=== PATIENT | male | born 1945 | race Caucasian/White ===

== ENCOUNTER 2024-11-04 13:02 | Outpatient (REF) | payer MEDICARE, SELFPAY ==
[2024-11-04 18:08] LABS: Appearance Urine Turbid; Color Urine Yellow; Glucose Urine UA Negative (Negative); Leukocyte Esterase Urine Negative (Negative); Nitrite Urine Negative (Negative); PH 5.5 (5.0-9.0); Specific Gravity - Urine 1.025 (1.005-1.025); Urine Blood Negative (Negative); Urine Ketones Trace mg/dL (Negative); Urine Protein Trace mg/dL (Neg-Trace)
[2024-11-04 18:19] LABS: Anion Gap 12 (12-20); Blood Urea Nitrogen 23 mg/dL (9-16); Carbon Dioxide 22 mmol/L (22-29); Chloride 109 mmol/L (96-108); Estimated Glomerular Filt Rate 55; Phosphorus 3.1 mg/dL (2.7-4.5); Potassium 4.3 mmol/L (3.3-5.1); Sodium 139 mmol/L (135-145)
[2024-11-04 19:01] LABS: Creatinine Urine 267.04 mg/dL; Protein/Creatinine Ratio, Ur 0.07 (<0.2); Total Protein Urine Random 18 mg/dL (<12)
[2024-11-04 19:09] LABS: Parathyroid Hormone Intact 102.2 pg/mL (8.7-77.1)
[2024-11-09 12:13] LABS: IgA 151 mg/dL (70-320); IgG 743 mg/dL (600-1540); IgM 126 mg/dL (50-300)
== END 2024-11-04 13:03 | disposition home or self-care (01) ==
LOC: HO.HKASLDS 13:02
PROVIDERS: PCP Internal Medicine; Referring Provider Internal Medicine; Visit Provider Internal Medicine Nephrology
DX: N18.31 Chronic kidney disease, stage 3a (principal); I10 Essential (primary) hypertension
CPT/HCPCS: 36415; 80051; 81003; 82310; 82565; 82570; 82784; 83970; 84100; 84156; 84520; 86334; 99202

== ENCOUNTER 2024-11-04 13:02 | Outpatient (AMB) | payer MEDICARE, SELFPAY ==
--- NOTE | 2024-11-04 13:29 | HO.NEPHOV_ITS ---
Vital Signs 11/04/24 13:35 Height 6 ft Weight 179 lb BMI 24.3 BP 120/70 Blood Pressure Location Lt brachial Position Sitting Pulse 58 Pulse Source Pulse Oximeter Pulse Oximetry (%) 99 Oxygen Delivery Method Room Air Intake Visit Reasons: ENP: HTN/ Conf Ok per Dr Funez Application Security Engineer Required: No Accompanied by: Spouse Allergies No Known Allergies Allergy (Verified 11/04/24 13:35) HPI Comments Details: I had the pleasure of seeing Pankaj in consultation for CKD & hypertension. He has been having hypertension for a long time but continues to be labile inspite of medication and its compliance. He also has CKD as well as renal calculus. He denies any CAD,CVA, CHF, PAD or known MIKE. He denies any H/O hypokalemia, uncontrolled thyroid disorders, JOSE ALFREDO, palpitations. He is a smoker. He has H/O prostate cancer. He monitors his BP at home and remains labile. He had ECHO done in the past which has been Okay as per the patient and PCP note. He has H/O orthostatic hypotension. He is on Bystolic and losartan. He denies chest pain, SOB, PND, orthopnea, edema, palpitations or syncope. He was accompanied by his during this visit [facility] Medical History (Updated 11/15/24 @ 19:55 by Flaco Funez MD) Left cervical radiculopathy Chronic depression Anxiety BPH (benign prostatic hyperplasia) Prostate cancer Hyperlipidemia Hypertension Elevated serum creatinine Bilateral carpal tunnel syndrome Dyspnea Orthostatic hypotension Adenomatous polyp of colon Surgical History (Updated 11/04/24 @ 13:32 by Judit Lopez MA) History of cataract surgery H/O carpal tunnel repair S/P total knee arthroplasty H/O hernia repair H/O lithotripsy H/O cystoscopy Hx of cholecystectomy S/P partial colectomy History of bowel resection History of knee replacement Family History Mother Heart disease Cancer Father Cancer Hypertension Paternal Grandfather Cancer Social History (Updated 11/04/24 @ 13:30 by Judit Lopez MA) Alcohol intake: former Patient Tobacco Use Status: Current everyday Tobacco user Tobacco use type: Cigar Review of Systems Const All systems reviewed & are unremarkable except as noted in HPI and below Physical Exam Vital Signs: Last Vital Signs Pulse 58 11/04/24 13:35 BP 120/70 11/04/24 13:35 Pulse Ox 99 11/04/24 13:35 Oxygen Delivery Method Room Air 11/04/24 13:35 BMI result Body Mass Index 24.3 Const General: comfortable and no acute distress Orientation/consciousness: patient oriented x3 HEENT Head: Yes normocephalic Mouth: Normal oral and palatal mucosa present Eyes EOM: EOMs intact bilaterally Neck Neck: Yes supple Resp Auscultation: clear to auscultation bilaterally Cardio Jugular venous distension: no JVD Rate: regular rate GI Palpation (GI): Soft to palpation Auscultation: normal bowel sounds General: Yes no CVA tenderness Back/Spine/Pelvis Back: no CVA tenderness Skin General skin exam: no rashes or lesions noted Neuro General: patient oriented x3 and moves all extremities Extrem General: Yes no pedal edema Results Reviewed Nephrology Results: Sodium 139 mmol/L (135-145) 11/04/24 Potassium 4.3 mmol/L (3.3-5.1) 11/04/24 Chloride 109 mmol/L (96-108) H 11/04/24 Carbon Dioxide 22 mmol/L (22-29) 11/04/24 BUN 23 mg/dL (9-16) H 11/04/24 Creatinine 1.27 mg/dL (0.5-1.4) 11/04/24 Calcium 9.0 mg/dL (8.4-10.2) 11/04/24 Phosphorus 3.1 mg/dL (2.7-4.5) 11/04/24 PTH Intact 102.2 pg/mL (8.7-77.1) H 11/04/24 Urine Protein Trace mg/dL (Neg-Trace) 11/04/24 Urine Creatinine 267.04 mg/dL 11/04/24 Protein/Creatinin Ratio 0.07 (<0.2) 11/04/24 Renal US 11/12/24 Assessment & Plan Assessment & Plan (1) Hypertension: Code(s): I10 - Essential (primary) hypertension Category: Medical Qualifiers: Hypertension type: primary hypertension Qualified Code(s): I10 - Essential (primary) hypertension (2) CKD stage 3a, GFR 45-59 ml/min: Code(s): N18.31 - Chronic kidney disease, stage 3a Category: Medical (3) Hypertension: Code(s): I10 - Essential (primary) hypertension Category: Medical Qualifiers: Hypertension type: primary hypertension Qualified Code(s): I10 - Essential (primary) hypertension (4) CKD stage 3a, GFR 45-59 ml/min: Code(s): N18.31 - Chronic kidney disease, stage 3a Category: Medical Plan Pankaj is known to have CKD 3 with hypertension. His BP remains labile . He is on losartan and bystolic. He has H/O orthostatic drop in BP. I have ordered 24 hour BPM, renal imaging including Doppler of renal arteries as well as blood work for F/U of CKD. He maintains good hydration and avoids NSAID's. His UO is good and does not have any edema. I did not make any medication changes today but discussed about the above mentioned issues. Further management is pending e volving data. Answered all questions. Orders: Orders UA and rflx microscopic 11/04/24 I10 - Essential (primary) hypertension, N18.31 - Chronic kidney disease, stage 3a Protein Creatinine Ratio, Ur 11/04/24 I10 - Essential (primary) hypertension, N18.31 - Chronic kidney disease, stage 3a Creatinine 11/04/24 I10 - Essential (primary) hypertension, N18.31 - Chronic kidney disease, stage 3a Electrolytes 11/04/24 I10 - Essential (primary) hypertension, N18.31 - Chronic kidney disease, stage 3a Phosphorus 11/04/24 I10 - Essential (primary) hypertension, N18.31 - Chronic kidney disease, stage 3a Parathyroid Hormone Intact 11/04/24 I10 - Essential (primary) hypertension, N18.31 - Chronic kidney disease, stage 3a Immunofixation Pnl, Serum 11/04/24 I10 - Essential (primary) hypertension, N18.31 - Chronic kidney disease, stage 3a Blood Urea Nitrogen 11/04/24 I10 - Essential (primary) hypertension, N18.31 - Chronic kidney disease, stage 3a Calcium 11/04/24 I10 - Essential (primary) hypertension, N18.31 - Chronic kidney disease, stage 3a US renal BI 1 Week I10 - Essential (primary) hypertension, N18.31 - Chronic kidney disease, stage 3a US renal doppler 1 Week I10 - Essential (primary) hypertension, N18.31 - Chron ic kidney disease, stage 3a AMB 24 HR B/P Monitor PLACEMENT 11/04/24 I10 - Essential (primary) hypertension, N18.31 - Chronic kidney disease, stage 3a Coding Level of Care Code New Pt Level 4 (89894) Diagnoses Primary hypertension I10 Hypertension type: primary hypertension CKD stage 3a, GFR 45-59 ml/min N18.31
[2024-11-04 13:35] VITALS: BP 120/70; PULSE 58; O2SAT 99; BMI 24.3
== END 2024-11-04 14:20 | disposition home or self-care (01) ==
LOC: HO.HKAS 13:03
PROVIDERS: PCP Internal Medicine; Referring Provider Internal Medicine; Visit Provider Internal Medicine Nephrology
DX: I10 Essential (primary) hypertension (principal); N18.31 Chronic kidney disease, stage 3a
CPT/HCPCS: 99204

== ENCOUNTER 2024-11-12 12:31 | Outpatient (REF) | payer MEDICARE, SELFPAY ==
--- NOTE | ~2024-11-12 | US_ITS ---
EXAMINATION: US RETROPERITONEAL LIMITED (RENAL ONLY) CLINICAL INFORMATION: Essential hypertension. COMPARISON: None available. TECHNIQUE: Ultrasound along with color Doppler imaging and spectral analysis was performed of the kidneys. FINDINGS: RIGHT KIDNEY: 9.8 x 4.5 x 5.1 cm (SAG x AP x TRV). The kidney is normal in size, contour, and echogenicity. Renal cortical thickness is normal. No calculi or focal parenchymal lesions. No hydronephrosis. LEFT KIDNEY: 11.1 x 4.8 x 3.9 cm (SAG x AP x TRV). The kidney is normal in size, contour, and echogenicity. Renal cortical thickness is normal. No focal parenchymal lesions. No hydronephrosis. Nonobstructing lower pole calculus measuring 4 x 3 x 4 mm. Spectral Doppler analysis: Right Kidney: -Peak systolic velocity in the proximal right renal artery = 168 cm/s. Normal waveforms. -Peak systolic velocity in the mid right renal artery = 179 cm/s. Normal waveforms. -Peak systolic velocity in the distal right renal artery = 80 cm/s. Normal waveforms. -Patent right renal vein. -Upper pole interlobar artery resistive index of 0.78. -Midpole interlobar artery resistive index of 0.79. -Lower pole interlobar artery resistive index of 0.79. RAR right = 1.8 Left Kidney: -Peak systolic velocity in the proximal left renal artery = 185 cm/s. Normal waveforms. -Peak systolic velocity in the mid left renal artery = 133 cm/s. Normal waveforms. -Peak systolic velocity in the distal left renal artery = 82 cm/s. Normal waveforms. -Patent left renal vein. -Upper pole interlobar artery resistive index of 0.73. -Mid pole interlobar artery resistive index of 0.78. -lower pole interlobar artery resistive index of 0.78. RAR left = 1.9 Aorta: -Peak systolic velocity = 99 cm/s. US/US renal doppler IMPRESSION: 1. No evidence of renal artery stenosis or abnormal waveforms bilaterally on color/spectral Doppler examination (based on peak systolic velocities and resistive indices). 2. Renal parenchyma is normal. No hydronephrosis. 3. There is a left renal lower pole nonobstructing calculus measuring 4 mm. Electronically signed by: Shane Ruiz MD 11/12/2024 02:22 PM EDT RP
--- OUTSIDE RECORDS SUMMARY | 2024-11-12 14:24 | XMS_ITS | Encounter Summary ---
Author Organization [facility], Address [address] [place] [phone] Phone Care Team Providers Care Category Manager Name Role Phone Isma Lewis MD Primary Care Provider [phone] Encounter Details Date Type Department Care Team (Late st Contact Info) Description 07/22/2022 Documentation Only [facility] [address] [place] [place] [address] Isma Lewis MD [address] [place] [phone] Social History Tobacco Use Types Packs/Day Years Used Date Smoking Tobacco: Never Assessed Sex and Gender Information Value Date Recorded Sex Assigned at Male 08/29/2023 3:50 PM EST Legal Sex Male 11:12 AM EST Gender Identity Male 08/29/2023 3:50 PM EST Sexual Orientation Not on file documented as of this encounter Plan of Treatment Upcoming Encounters Date Type Department Care Team (Late st Contact Info) Description 02/07/2025 4:00 PM EDT Office Visit [facility], [address] [place] [address] Sammy Hall MD [address] [place] [address] [place] [phone] documented as of this encounter Visit Diagnoses Not on filedocumented in this encounter Care Teams Category Manager Relationship Specialty Start Date End Date Isma Lewis MD [address] [place] [address] PCP - General Internal Medicine 07/22/22 documented as of this encounter
--- OUTSIDE RECORDS SUMMARY | 2024-11-12 14:24 | XMS_ITS | Encounter Summary ---
Author Organization [facility] Address [address] [place] [address] Care Team Providers Care Litigation Claim Representative Name Role Phone Isma Lewis MD Primary Care Provider [phone] Reason for Visit * Reason Onset Date Comments Hypertension 09/20/2024 Encounter Details Date Type Department Care Team (Late st Contact Info) Description 09/20/2024 Telephone Internal Medicine - [facility] [address] [place] [phone] Isma Lewis MD [address] [place] [address] Hypertension Social History Tobacco Use Types Packs/Day Years Used Date Smoking Tobacco: Every Day Cigars Comments:Smoking 1 cigar jacob ly Alcohol Use Standard Drinks/Week Comments Not Currently 0 (1 standard drink = 0.6 oz pur e alcohol) Sex and Gender Information Value Date Recorded Sex Assigned at Not on file Legal Sex Male 3:56 AM EST Gender Identity Not on file Sexual Orientation Not on file documented as of this encounter Progress Notes * Nayana Márquez RN - 09/20/2024 12:[address] Lewis-pt reports he stopped taking Labetalol because it caused SOB so bad that he was gasping for breath. I scheduled an appt with you for tomorrow FYI Call to pt # [phone], spoke to pt Informed pt that Dr. Lewis advised pt to notify his vat operator of elevated BP and to restart labetalol. pt reports he stopped taking Labetalol because it caused SOB quickly like just taking a shower, gasping for breath. I scheduled an appt with provider for tomorrow * Isma Lewis MD - 09/20/2024 11:43 AM EST I think he should check with his vat operator. And may go back to his old medicine * Nayana Márquez RN - 09/20/2024 11:[address] Lewis-pt reporting elevated BP since starting nebivolol. BP prior to starting this medication 116/60-122/62. Now he is having BP 157/86-165/80. Please advise * Marcella Pisano - 09/20/2024 9:54 AM EST States running high blood pressure Ever since a new medication was introduced Nebivolol 2.5mg This am reported 157/86 Yesterday was 165/unsure documented in this encounter Plan of Treatment Upcoming Encounters Date Type Department Care Team (Late st Contact Info) Description 12/08/2024 9:10 AM EDT Office Visit [facility] [address] [facility] [address] [place] [address] Po Bernal NP [address] [place] [address] 01/13/2025 9:40 AM EDT Office Visit Gastroenterology - [address] [place] [address] Mary Bermudez PA [address] [place] [address] 02/21/2025 8:45 AM EDT Office Visit Internal Medicine - [facility] [address] [phone] Isma Lewis MD [address] [address] 05/13/2025 10:00 AM EDT Office Visit Hematology Oncology [address] [place] [phone] Jhoan Lawrence MD [address] [place] [phone] 09/08/2025 10:30 AM EST Office Visit Pulmonolgy - [facility] [address] [phone] Virgil Palomo MD [address] [address] documented as of this encounter Visit Diagnoses Not on filedocumented in this encounter Additional Health Concerns Assessment Noted Time PHQ-9 Depression Total Score: 0 08/23/19 9:55 AM EST A fall risk assessment has been complete d for the patient 08/23/2024 9:52 AM EST documented as of this encounter Care Teams Litigation Claim Representative Relationship Specialty Start Date End Date Isma Lewis MD [address] [address] PCP - General Internal Medicine 09/28/18 documented as of this encounter
--- OUTSIDE RECORDS SUMMARY | 2024-11-12 14:24 | XMS_ITS | Clinical Summary ---
Author Organization [facility] Address [address] [place] [address] Care Team Providers Care Senior Quality Engineer Name Role Phone Isma Lewis MD Primary Care Provider Unavailab le Allergies No known active allergies Medications Medication Sig Dispensed Refills Start Date End Date Status omeprazole (PriLOSEC) 20 MG capsule Take 1 capsule (20 mg total) by mouth daily. 0 Active sertraline (ZOLOFT) 100 MG tablet Take 1 tablet (100 mg total) by mouth daily. 0 Active busPIRone (BUSPAR) 15 MG tablet Take 1 tablet (15 mg total) by mouth 2 (two) times a day. 0 Active losartan (COZAAR) 100 MG tablet Take 1 tablet (100 mg total) by mouth daily. 0 Active labetalol (NORMODYNE) 100 MG tablet Take 1 tablet (100 mg total) by mouth daily. 0 Active atorvastatin (LIPITOR) tablet 20 mg Take 1 tablet (20 mg total) by mouth daily. 4 times weekly 0 Active Active Problems Problem Noted Date Diagnosed Date Other specified anemias 10/17/2023 Social History Tobacco Use Types Packs/Day Years Used Date Smoking Tobacco: Never Assessed Sex and Gender Information Value Date Recorded Sex Assigned at Not on file Gender Identity Not on file Sexual Orientation Not on file Job Start Date Occupation Industry Not on file Not on file Not on file Last Filed Vital Signs Vital Sign Reading Time Taken Comments Blood Pressure 148/61 05/14/2024 10:07 AM EDT Pulse 67 05/14/2024 10:07 AM EDT Temperature 36.2 ??C (97.2 ??F) 05/14/2024 10:07 AM E DT Respiratory Rate - - Oxygen Saturation 100% 05/14/2024 10:07 AM EDT Inhaled Oxygen Concentration - - Weight 82.1 kg (181 lb) 05/14/2024 10:07 AM EDT Height 182.9 cm (6') 05/14/2024 10:07 AM EDT Body Mass Index 24.55 05/14/2024 10:07 AM EDT Plan of Treatment Health Maintenance Due Date Last Done Comments Hepatitis C Screening 1945 COVID-19 Vaccine (#1) 03/26/1946 Depression Screening 1958 Preventative Health Evaluation 1964 DTap / Tdap / Td (1 - Tdap) 1965 Shingrix-Zoster Vaccine (1 o f 2) 1996 Fall Risk Assessment 2011 RSV Adult > 60+ Yrs or (1 - 1-dose 75+ series) 2021 Influenza Vaccine (#1) 2024 04/25/2020 Pneumococcal Vaccine Completed 04/07/2018, 03/27/2017 Hepatitis B Vaccines Aged Out No long er eligible based on patient's age to complete this topic RSV Ped < 20 months Aged Out No longe r eligible based on patient's age to complete this topic Care Teams Senior Quality Engineer Relationship Specialty Start Date End Date Isma Lewis MD PCP - General Internal Medicine 09/25/23
--- OUTSIDE RECORDS SUMMARY | 2024-11-12 14:24 | XMS_ITS | Clinical Summary ---
Author Organization [facility] [address] [place] [address] Phone Care Team Providers Care Solar Sales Associate Name Role Phone Isma Lewis MD Primary Care Provider [phone] Medications losartan (COZAAR) 50 MG tablet Take 50 mg by mouth in the morning and 50 mg in the evening. Active nebivolol (BYSTOLIC) 10 MG tablet Take 10 mg by mouth 1 (one) time each day Active Encounters Date Type Department Care Team Description 10/18/2024 10:45 AM EDT Office Visit [facility] [address] [place] [address] Sammy Hall MD Stage 3a chronic kidney disease (HCC) (Primary Dx); Hypertension; Nephrolithiasis; Primary malignant neoplasm of prostate (HCC) 08/26/2024 Telephone [facility] [address] [place] [address] Randi Connelly MA from Last 3 Months Social History Tobacco Use Types Packs/Day Years Used Date Smoking Tobacco: Never Assessed Sex and Gender Information Value Date Recorded Sex Assigned at Male 08/29/2023 3:50 PM EST Legal Sex Male 11:12 AM EST Gender Identity Male 08/29/2023 3:50 PM EST Sexual Orientation Not on file Last Filed Vital Signs Vital Sign Reading Time Taken Comments Blood Pressure 118/60 08/20/2023 2:37 PM EST Pulse - - Temperature - - Respiratory Rate - - Oxygen Saturation - - Inhaled Oxygen Concentration - - Weight - - Height - - Body Mass Index - - Plan of Treatment Upcoming Encounters Date Type Department Care Team (Late st Contact Info) Description 02/07/2025 4:00 PM EDT Office Visit [facility], [address] [place] [phone] Sammy Hall MD [address] [facility] [place] [phone] Health Maintenance Due Date Last Done Comments Influenza Vaccine (Season Ended) 2025 04/25/2020 Pneumococcal Vaccine: 65+ Years Completed 04/07/2018, 03/27/2017 Hepatitis B Vaccine Aged Out No longe r eligible based on patient's age to complete this topic Insurance [id number] Care Teams Solar Sales Associate Relationship Specialty Start Date End Date Isma Lewis MD [address] [facility] [address] [place], [place] [phone] PCP - General Internal Medicine 07/22/22
--- OUTSIDE RECORDS SUMMARY | 2024-11-12 14:24 | XMS_ITS | Encounter Summary ---
Author Organization [facility], Address [address] [place] [phone] Phone Care Team Providers Care Furnace Filler Name Role Phone Isma Lewis MD Primary Care Provider [phone] Encounter Details Date Type Department Care Team (Late st Contact Info) Description 08/08/2022 Documentation Only [facility] [address] [place] [address] Isma Lewis MD [address] [place] [phone] Social History Tobacco Use Types Packs/Day Years [...] Visit [facility], [address] [place] [address] Sammy Hall MD [address] [place] [address] [place] [phone] documented as of this encounter Visit Diagnoses Not on filedocumented in this encounter Care Teams Furnace Filler Relationship Specialty Start Date End Date Isma Lewis MD [address] [place] [address] PCP - General Internal Medicine 07/22/22 documented as of this encounter
--- OUTSIDE RECORDS SUMMARY | 2024-11-12 14:24 | XMS_ITS | Encounter Summary ---
Author Organization [facility], Address [address] [place] [phone] Phone Care Team Providers Care Electrician [employer] Name Role Phone Isma Lewis MD Primary Care Provider [phone] Encounter Details Date Type Department Care Team (Late st Contact Info) Description 08/08/2022 Documentation Only [facility] [address] [place] [address] Isma Lewis MD [address] [place] [phone] Social History Tobacco Use Types Packs/Day Years [...] Visit [facility], [address] [facility] [place] [address] Sammy Hall MD [address] [place] [address] [place] [phone] documented as of this encounter Visit Diagnoses Not on filedocumented in this encounter Care Teams Electrician [employer] Relationship Specialty Start Date End Date Isma Lewis MD [address] [place] [address] PCP - General Internal Medicine 07/22/22 documented as of this encounter
--- OUTSIDE RECORDS SUMMARY | 2024-11-12 14:24 | XMS_ITS | Clinical Summary ---
Author Organization 175 [facility] Address [address] [place] [address] Phone Care Team Providers [employer]ge [employer] Supervisor Name Role Phone Isma Lewis MD Primary Care Provider [phone] Allergies No known active allergies Medications losartan (COZAAR) 100 mg tablet Take 1 tablet (100 mg total) by mouth 1 (one) time each day. 3 Active OMEPRAZOLE ORAL Take 1 tablet by mouth 1 (one) time each day. Active vit B6-mag cit,oxid-potas s cit (Theralith XR) 3.75-45-45-49. 5 mg tablet extended release Take 4 tablets by mouth. Active nebivoloL (Bystolic) 10 mg tablet Take 1 tablet (10 mg total) by mouth 1 (one) time each day. 30 each 11 5 09/21/19 26 Active omeprazole OTC (PriLOSEC OTC) 20 mg EC tabletIndicati ons:Epigastric burning sensation Take 1 tablet (20 mg total) by mouth 2 (two) times a day. Do not crush, chew, or split. 180 tablet 3 5 10/15/19 26 Active sucralfate (CARAFATE) 1 gram tabletIndicati ons:Epigastric burning sensation Take 1 tablet (1 g total) by mouth 3 (three) times a day. Take 1 hour before meals and at bedtime 270 each 1 5 04/12/20 25 Active busPIRone (BUSPAR) 15 mg tablet TAKE 1 TABLET BY MOUTH TWICE DAILY 180 tablet 1 5 Active atorvastatin (LIPITOR) 20 mg tablet TAKE 1 TABLET BY MOUTH DAILY 90 tablet 1 5 Active sertraline (ZOLOFT) 100 mg tablet TAKE 2 TABLETS BY MOUTH DAILY 180 tablet 1 5 Active atorvastatin (LIPITOR) 20 mg tablet Take 1 tablet (20 mg total) by mouth 1 (one) time each day. 3 10/26/19 25 Discontinued busPIRone (BUSPAR) 15 mg tablet Take 1 tablet (15 mg total) by mouth 2 (two) times a day. 3 10/26/19 25 Discontinued sertraline (ZOLOFT) 100 mg tablet 2 p.o. daily 3 10/26/19 25 Discontinued Active Problems Problem Noted Date Diagnosed Date Adenomatous polyp of colon 10/14/2024 Overview (10/14/2024): Right colectomy 2006 for TVA with HGD Orthostatic hypotension 12/06/2022 Overview (10/15/2023): - Started noticing increased dizziness, particularly with postural changes and bending over over the past 3 years or so as he was initiated on antihypertensive medications - What prompted referral to me was 1 particular episode in either late or early during which time he got extremely lightheaded after a hot shower, got nauseated and vomited - Grossly orthostatic during my visit with him in November 2022 however I lost the piece of paper with the numbers on it so I was not able to record official numbers - Because of constellation of issues including symptoms of orthostasis/dysautonomia, bilateral carpal tunnel syndrome, history of spinal stenosis-I did a work-up for AL amyloidosis - Work-up was positive for kappa light chains on urine immunofixation electrophoresis though free light chain ratio was normal, SIFE was normal, spot Uring Prot/Cr negative for significant proteinuria -Echocardiogram on 01/21/2023 showed normal biventricular size and systolic function, normal left ventricular regional wall motion with an ejection fraction of 60 to 65%, no hemodynamically significant valve disease Last Assessment & Plan: Continue AL amyloid work-up-I have contacted pathology as well as Dr. Baptiste-we are in the process of getting his carpal tunnel tissue stain for [place] red given persistence of symptoms though to a milder degree; continue behavioral modifications including slow postural changes, recognition of symptoms upon which he knows to get to a seated or lying position and rest, core and leg strengthening exercises; I will also informally confer with hematology to get their opinion about his positive UIFE and how relevant this is Dyspnea 12/05/2022 Overview (10/15/2023): - Typically with more than ordinary activities such as intense yard work but sometimes will feel short of breath when he gets lightheaded with postural changes well Last Assessment & Plan: Clinically euvolemic on exam and with a reassuring echocardiogram-possibly related to deconditioning and may be part and parcel of his orthostasis as well; reassurance about echo provided, no further cardiac work-up for the time being Bilateral carpal tunnel syndrome 09/25/2022 Creatinine elevation 01/29/2019 Hypertension 09/24/2018 Overview (10/15/2023): Last Assessment & Plan: Continue monotherapy with losartan 100 mg daily split up as 50 twice daily Assessment & Plan (08/23/2024 12:01 PM EST): Hypertension is under control today. At times numbers are high on losartan. DC labetalol ,start Bystolic 2.5 mg daily, did see tax evaluator. Still has some dyspnea, referred to pulmonary Orders: CBC and differential; Future Comprehensive metabolic panel; Future Lipid panel with reflex to direct LDL; Future Thyroid stimulating hormone; Future Hyperlipidemia 09/24/2018 Overview (10/15/2023): Last Assessment & Plan: Continue atorvastatin 20 mg at bedtime Assessment & Plan (08/23/2024 12:01 PM EST): Hyperlipidemia stable on Lipitor. Check CBC, CMP, TSH, lipid panel Orders: CBC and differential; Future Comprehensive metabolic panel; Future Lipid panel with reflex to direct LDL; Future Thyroid stimulating hormone; Future Prostate cancer 09/24/2018 Overview (10/15/2023): 06/2018 repeat MRI in 2-3months, PSA and rectal exam; [facility] Urology BPH (benign prostatic hyperplasia) 09/24/2018 Anxiety 09/24/2018 Assessment & Plan (08/23/2024 12:01 PM EST): Anxiety is under control on Zoloft. Orders: CBC and differential; Future Comprehensive metabolic panel; Future Lipid panel with reflex to direct LDL; Future Thyroid stimulating hormone; Future Chronic depression 09/24/2018 Left cervical radiculopathy 09/24/2018 History of knee replacement 09/24/2018 Encounters Date Type Department Care Team Description 10/26/2024 11:45 AM EDT Office Visit Internal Medicine [facility] 175 [facility] [address] [place] [address] Isma Lewis MD Accelerated hypertension (Primary Dx); Primary hypertension; Stage 2 chronic kidney disease; Hypercholesterolemia 10/14/2024 10:20 AM EST Office Visit Gastroenterology - 299 [facility] 299 [facility] [address] [place] [address] Mary Bermudez PA Epigastric burning sensation (Primary Dx); Nausea; Adenomatous polyp of ascending colon 10/13/2024 Telephone Internal Medicine [facility] 175 [facility] [address] [place] [address] Isma Lewis MD 10/11/2024 Telephone Internal Medicine [facility] 175 [facility] [address] [place] [address] Isma Lewis MD Joseph: Medication 09/21/2024 10:45 AM EST Office Visit Internal Medicine [facility] 175 [facility] [address] [place] [address] Isma Lewis MD Primary hypertension (Primary Dx); Stage 2 chronic kidney disease 09/20/2024 Telephone Internal Medicine [facility] [address] [address] Isma Lewis MD Hypertension 09/14/2024 9:51 AM EST - 09/14/2024 11:59 PM EST Hospital Encounter [facility] Xray [address] [place] [phone] SOB (shortness of breath) Discharge Disposition: Home or Self Care 09/07/2024 10:00 AM EST Consult Pulmonolgy - [address] [phone] Virgil Palomo MD SOB (shortness of breath) 08/23/2024 9:45 AM EST Office Visit Internal Medicine - [address] [phone] Isma Lewis MD Primary hypertension (Primary Dx); Pure hypercholesterolemia; Stage 2 chronic kidney disease; Anxiety; SOB (shortness of breath) from Last 3 Months Immunizations Name Administration Dates Next Due Influenza trivalent, 0.5mL ( Fluzone High-dose) 65yo and older 04/25/2020 Pneumococcal conjugate 13 va lent (Prevnar 13, PCV13) 2mo and older 03/27/2017 Pneumococcal polysaccharide 23 valent (Pneumovax 23) 2yo and older 04/07/2018 Surgical History Surgery Date Site/Laterality Comments CHOLECYSTECTOMY PROCEDURE: HISTORICAL CHOLECYSTECTOMY TOTAL KNEE ARTHROPLASTY 2012 Right PROCEDURE: HISTORICAL TOTAL KNEE REPLACE BOWEL RESECTION PROCEDURE: HISTORICAL BOWEL RESECTION; COMMENT: partial colectomy HERNIA REPAIR Bilateral PROCEDURE: HISTORICAL HERNIA REPAIR/ING; COMMENT: hernia repair LITHOTRIPSY 10/17/2010 Left PROCEDURE: HISTORICAL LITHOTRIPSY; COMMENT: renal CYSTOSCOPY 08/01/2010 Left PROCEDURE: HISTORICAL CYSTOSCOPY; COMMENT: 07/26/2010 ureteral stent; 08/01/10-ureter & lithotripsy OTHER SURGICAL HISTORY 06/23/2018 PROCEDURE: US BIOPSY PROSTATE NEEDLE; COMMENT: adenocarcinoma Medical History Medical History Date Comments History of knee replacement 09/24/2018 DX:H istory of knee replacement Anxiety 09/24/2018 DX:Anxiety BPH (benign prostatic hyperplasia) 09/24/2018 DX:BPH (benign prostatic hyperplasia) Chronic depression 09/24/2018 DX:Chronic de pression Hyperlipidemia 09/24/2018 DX:Hyperlipidemi a History of kidney stones 09/24/2018 DX:Hist ory of kidney stones History of basal cell carcinoma 09/24/2018 DX:History of basal cell carcinoma; COMMENT: 2018 Left pretibial leg Prostate cancer (CMS/HCC) 09/24/2018 DX:Pro state cancer (HCC); COMMENT: 06/2018 repeat MRI in 2-3months, PSA and rectal exam; [facility] Urology Hypertension 09/24/2018 DX:Hypertension Left cervical radiculopathy 09/24/2018 DX:L eft cervical radiculopathy Social History Tobacco Use Types Packs/Day Years Used Date Smoking Tobacco: Every Day Cigars Tobacco Cessation:Ready to Q uit: Not Asked; Counseling Given: Not Answered Comments:Smoking 1 cigar daily Alcohol Use Standard Drinks/Week Comments Not Currently 0 (1 standard drink = 0.6 oz pur e alcohol) Sex and Gender Information Value Date Recorded Sex Assigned at Not on file Legal Sex Male 3:56 AM EST Gender Identity Not on file Sexual Orientation Not on file Obstetrics History Last Filed Vital Signs Vital Sign Reading Time Taken Comments Blood Pressure 160/80 10/26/2024 11:42 AM EDT Pulse 60 10/26/2024 11:37 AM EDT Temperature 36.2 ??C (97.2 ??F) 10/26/2024 1 1:37 AM EDT Respiratory Rate 20 09/07/2024 10:1 4 AM EST Oxygen Saturation 98% 10/26/2024 11: 37 AM EDT Inhaled Oxygen Concentration - - Weight 78.4 kg (172 lb 12.8 oz) 025 11:37 AM EDT Height 182.9 cm (6') 10/14/2024 10:08 AM EST Body Mass Index 23.44 10/14/2024 10:08 AM EST Plan of Treatment Upcoming Encounters Date Type Department Care Team (Late st Contact Info) Description 12/08/2024 9:10 AM EDT Office Visit [facility] [address] [facility] [address] [place] [address] Po Bernal NP [address] [place], [place] [phone] 01/13/2025 9:40 AM EDT Office Visit Gastroenterology - [address] [place] [address] [facility] [address] [place] [phone] Mary Bermudez PA 299 [facility] [address] [place] [address] 02/21/2025 8:45 AM EDT Office Visit Internal Medicine - [place] 175 [facility] [address] [place] [phone] Isma Lewis MD [address] [address] 05/13/2025 10:00 AM EDT Office Visit [facility] Hematology Oncology [address] [place] [phone] Jhoan Lawrence MD [address] [place] [phone] 09/08/2025 10:30 AM EST Office Visit Pulmonolgy - [place] [address] [phone] Virgil Palomo MD [address] [address] Health Maintenance Due Date Last Done Comments DTaP,Tdap,and Td Vaccines (1 - Tdap) 1964 Zoster Vaccines (1 of 2) 1965 RSV Immunization Adult Patients (1 - 1-dose 75+ series) 2021 Hepatitis C Screening 07/20/2022 Social Influencers of Health Screening 07/20/2022 COVID-19 Vaccine (4 - 2023-2 5 season) 2024 09/02/2021, 11/26/2020, 11/04/2020 Influenza Vaccine (#1) 2024 04/25/2020 Depression Screening 08/23/2025 08/23/2024 Falls Risk Assessment 08/23/2025 08/23/2024 Medicare Annual Wellness Visit 08/23/2025 08/23/2024 Hypertension/CHF/CAD Annual BMP Blood Test 09/07/2025 09/07/2024 Cholesterol Screening (Lipid Panel) 09/07/2029 09/07/2024, 08/15/2023 Pneumococcal Vaccine: 50+ Years Completed 04/07/2018, 03/27/2017 Colorectal Cancer Screening: Colonoscopy Discontinued 10/15/2024 HIB Vaccines Aged Out No longer eligi ble based on patient's age to complete this topic HPV Vaccines Aged Out No longer eligi ble based on patient's age to complete this topic Hepatitis A Vaccines Aged Out No long er eligible based on patient's age to complete this topic Hepatitis B Vaccines Aged Out No long er eligible based on patient's age to complete this topic IPV Vaccines Aged Out No longer eligi ble based on patient's age to complete this topic MMR Vaccines Aged Out No longer eligi ble based on patient's age to complete this topic Meningococcal ACWY Vaccine Aged Out N o longer eligible based on patient's age to complete this topic Meningococcal B Vacine Aged Out No lo nger eligible based on patient's age to complete this topic RSV Immunization Patients Under 20 months Aged Out No longer eligible based on patient's age to complete this topic Varicella Vaccines Aged Out No longer eligible based on patient's age to complete this topic Procedures Procedure Name Priority Date/Time Associated Diagnosis Comments EXTERNAL COLONOSCOPY REPORT Routine 10/15/2024 9:18 AM EST XR CHEST 2 VIEWS Routine 09/14/2024 9:56 AM EST SOB (shortness of breath) CBC WITH AUTO DIFFERENTIAL Routine 09/07/2024 10:42 AM EST Pure hypercholesterolem ia Primary hypertension Stage 2 chronic kidney disease Anxiety THYROID STIMULATING HORMONE Routine 09/07/2024 10:42 AM EST Pure hypercholesterolem ia Primary hypertension Stage 2 chronic kidney disease Anxiety LIPID PANEL WITH REFLEX TO DIRECT LDL Routine 09/07/2024 10:42 AM EST Pure hypercholesterolem ia Primary hypertension Stage 2 chronic kidney disease Anxiety COMPREHENSIVE METABOLIC PANEL Routine 09/07/2024 10:42 AM EST Pure hypercholesterolem ia Primary hypertension Stage 2 chronic kidney disease Anxiety CBC AND DIFFERENTIAL Routine 09/07/2024 10:42 AM EST Pure hypercholesterolem ia Primary hypertension Stage 2 chronic kidney disease Anxiety from Last 3 Months Results * External Colonoscopy Report (10/15/2024 9:18 AM EST) Anatomical Region Laterality Modality Endoscopy us Historical Provider GI~PROCEDURE ORDERABLES F inal Result * XR Chest 2 Views (09/14/2024 9:56 AM EST) Anatomical Region Laterality Modality Body Radiographic Nancy ging 09/14/2024 1:21 PM EST Impressions 09/14/2024 1:22 PM EST Impression: No active pulmonary process identified. Telerad JAVIER ([id number]) -------- FINAL REPORT -------- Dictated By: Lubna Arreola Dictated Date: 09/14/2024 13:21 ET Assigned Physician: Lubna Arreola Reviewed and Electronically Signed By: Lubna Arreola Signed Date: 09/14/2024 13:22 ET Workstation ID: [id number] Transcribed By: Self Edit Transcribed Date: 09/14/2024 13:21 ET Narrative 09/14/2024 1:22 PM EST History: Dyspnea on exertion. Comparison: No comparison imaging at this institution. Findings: PA and lateral views. The cardiac silhouette is normal in size. Hilar contours and pulmonary vascularity appear normal. The lungs are clear. The costophrenic angles are sharp. Flowing hyperostosis is seen along the anterior aspect of the spine. Cholecystectomy clips are noted. Procedure Note Lubna Arreola MD - 09/14/2024 History: Dyspnea on exertion. Comparison: No comparison imaging at this institution. Findings: PA and lateral views. The cardiac silhouette is normal in size. Hilarcontours and pulmonary vascularity appear normal. The lungs are clear. Thecostophrenic angles are sharp. Flowing hyperostosis is seen along the anterior aspect of the spine.Cholecystectomy clips are noted. IMPRESSION: Impression: No active pulmonary process identified. Telerad JAVIER ([id number]) -------- FINAL REPORT -------- Dictated By: Lubna Arreola Dictated Date: 09/14/2024 13:21 ET Assigned Physician: Lubna Arreola Reviewed and Electronically Signed By: Lubna Arreola Signed Date: 09/14/2024 13:22 ET Workstation ID: [id number] Transcribed By: Self Edit Transcribed Date: 09/14/2024 13:21 ET us Virgil Palomo MD IMG XR PROCEDURES Final Result * Lipid panel with reflex to direct LDL (09/07/2024 10:42 AM EST) Cholesterol 159 0 - 200 mg/dL LAB CHEMISTRY METHOD 09/07/2024 3:06 PM EST [facility] Triglycerides 126 0 - 150 mg/dL LAB CHEMISTRY METHOD 09/07/2024 3:06 PM EST [facility] HDL 49 >=40 mg/dL LAB CHEMISTRY METHOD 09/07/2024 3:06 PM EST [facility] LDL Calculated 85 0 - 100 mg/dL LAB CHEMISTRY METHOD 09/07/2024 3:06 PM EST [facility] VLDL Cholesterol Evan 25.2 mg/dL LAB CHEMISTRY METHOD 09/07/2024 3:06 PM EST [facility] Non HDL Chol. (LDL+VLDL) 110 <145 mg/dL LAB CHEMISTRY METHOD 09/07/2024 3:06 PM EST [facility] Chol/HDL Ratio 3.2 0.0 - 4.4 LAB CHEMISTRY METHOD 09/07/2024 3:06 PM [facility] Blood Venous blood specimen / Unknown Venipuncture / Unknown 09/07/2024 10:42 AM EST 09/07/2024 10:42 AM EST us Isma Lewis MD LAB BLOOD ORDERABLES Final Resul t [facility] [address] [place] [address], [place] [phone] * (ABNORMAL) CBC auto differential (09/07/2024 10:42 AM EST) [facility] WBC 4.5(L) 4.8 - 10.8 K/mcL LAB HEMETOLOGY METHOD 09/07/2024 2:20 PM [facility] RBC 4.40(L) 4.50 - 5.50 M/mcL LAB HEMETOLOGY METHOD 09/07/2024 2:20 PM [facility] Hemoglobin 13.2(L) 13.5 - 17.5 g/dL LAB HEMETOLOGY METHOD 09/07/2024 2:20 PM [facility] Hematocrit 39.3(L) 42.0 - 54.0 % LAB HEMETOLOGY METHOD 09/07/2024 2:20 PM [facility] MCV 89.7 79.0 - 98.0 FL LAB HEMETOLOGY METHOD 09/07/2024 2:20 PM [facility] MCH 30.1 27.0 - 32.0 pcg LAB HEMETOLOGY METHOD 09/07/2024 2:20 PM [facility] MCHC 33.6 32.0 - 37.0 g/dL LAB HEMETOLOGY METHOD 09/07/2024 2:20 PM [facility] RDW 13.8 11.0 - 15.0 % LAB HEMETOLOGY METHOD 09/07/2024 2:20 PM [facility] Platelets 130 130 - 400 K/mcL LAB HEMETOLOGY METHOD 09/07/2024 2:20 PM [facility] MPV 10.6 7.0 - 11.0 FL LAB HEMETOLOGY METHOD 09/07/2024 2:20 PM [facility] NRBC 0.0 <1.0 % LAB HEMETOLOGY METHOD 09/07/2024 2:20 PM [facility] NRBC Absolute 0.00 <0.10 K/mcL LAB HEMETOLOGY METHOD 09/07/2024 2:20 PM [facility] Neutrophils Relative 76.3 % LAB HEMETOLOGY METHOD 09/07/2024 2:20 PM [facility] Lymphocytes Relative 15.0 % LAB HEMETOLOGY METHOD 09/07/2024 2:20 PM [facility] Monocytes Relative 7.4 % LAB HEMETOLOGY METHOD 09/07/2024 2:20 PM [facility] Eosinophils Relative 0.4 % LAB HEMETOLOGY METHOD 09/07/2024 2:20 PM [facility] Basophils Relative 0.7 % LAB HEMETOLOGY METHOD 09/07/2024 2:20 PM [facility] Immature Granulocytes Relative 0.2 % LAB HEMETOLOGY METHOD 09/07/2024 2:20 PM [facility] Neutrophils Absolute 3.40 1.50 - 7.00 K/mcL LAB HEMETOLOGY METHOD 09/07/2024 2:20 PM [facility] Lymphocytes Absolute 0.67(L) 1.00 - 5.00 K/mcL LAB HEMETOLOGY METHOD 09/07/2024 2:20 PM [facility] Monocytes Absolute 0.33 0.20 - 1.00 K/mcL LAB HEMETOLOGY METHOD 09/07/2024 2:20 PM [facility] Eosinophils Absolute 0.02 0.00 - 0.50 K/mcL LAB HEMETOLOGY METHOD 09/07/2024 2:20 PM [facility] Basophils Absolute 0.03 0.00 - 0.20 K/mcL LAB HEMETOLOGY METHOD 09/07/2024 2:20 PM [facility] Immature Granulocytes Absolute 0.01 0.00 - 0.03 K/mcL LAB HEMETOLOGY METHOD 09/07/2024 2:20 PM [facility] Blood Venous blood specimen / Unknown Venipuncture / Unknown 09/07/2024 10:42 AM EST 09/07/2024 10:42 AM EST us Isma Lewis MD LAB BLOOD ORDERABLES Final Resul t Performing Organization Address [facility] Co de Phone Number [facility] [address] [place] [address], [place] [phone] * (ABNORMAL) Thyroid stimulating hormone (09/07/2024 10:42 AM EST) TSH 5.01(H) 0.40 - 4.00 mcIU/mL LAB CHEMISTRY METHOD 09/07/2024 3:09 PM [facility] Blood Venous blood specimen / Unknown Venipuncture / Unknown 09/07/2024 10:42 AM EST 09/07/2024 10:42 AM EST us Isma Lewis MD LAB BLOOD ORDERABLES Final Resul t Performing Organization Address [facility] Co de Phone Number [facility] [address] [place] [address], [place] [phone] * (ABNORMAL) Comprehensive metabolic panel (09/07/2024 10:42 AM EST) Sodium 138 133 - 145 mmol/L LAB CHEMISTRY METHOD 09/07/2024 3:22 PM [facility] Potassium 4.4 3.5 - 5.5 mmol/L LAB CHEMISTRY METHOD 09/07/2024 3:22 PM [facility] Chloride 106 96 - 110 mmol/L LAB CHEMISTRY METHOD 09/07/2024 3:22 PM [facility] CO2 30 21 - 32 mmol/L LAB CHEMISTRY METHOD 09/07/2024 3:22 PM [facility] Anion Gap 2(L) 3 - 11 LAB CHEMISTRY METHOD 09/07/2024 3:22 PM [facility] Glucose 114(H) 70 - 100 mg/dL LAB CHEMISTRY METHOD 09/07/2024 3:22 PM [facility] BUN 25 5 - 25 mg/dL LAB CHEMISTRY METHOD 09/07/2024 3:22 PM [facility] Creatinine 1.41(H) 0.70 - 1.30 mg/dL LAB CHEMISTRY METHOD 09/07/2024 3:22 PM [facility] eGFR 51(L) >=60 mL/min/1. 73m2 LAB CHEMISTRY METHOD 09/07/2024 3:22 PM [facility] Comment:Calculation based on the??Chronic Kidney Disease Epidemiology Collaboration (CKD-EPI) equation refit??without adjustment for race. BUN/Creatinine Ratio 17.7 LAB CHEMISTRY METHOD 09/07/2024 3:22 PM [facility] Calcium 9.1 8.5 - 10.5 mg/dL LAB CHEMISTRY METHOD 09/07/2024 3:22 PM [facility] AST (SGOT) 22 10 - 42 unit/L LAB CHEMISTRY METHOD 09/07/2024 3:22 PM [facility] ALT (SGPT) 53 10 - 60 unit/L LAB CHEMISTRY METHOD 09/07/2024 3:22 PM [facility] Alkaline Phosphatase 55 42 - 121 unit/L LAB CHEMISTRY METHOD 09/07/2024 3:22 PM [facility] Total Protein 6.8 6.0 - 8.0 g/dL LAB CHEMISTRY METHOD 09/07/2024 3:22 PM [facility] Albumin 4.1 3.2 - 5.0 g/dL LAB CHEMISTRY METHOD 09/07/2024 3:22 PM [facility] Total Bilirubin 0.5 0.0 - 1.4 mg/dL LAB CHEMISTRY METHOD 09/07/2024 3:22 PM [facility] Blood Venous blood specimen / Unknown Venipuncture / Unknown 09/07/2024 10:42 AM EST 09/07/2024 10:42 AM EST Isma Lewis MD LAB BLOOD ORDERABLES Final Resul t [facility] ([facility] [address] [place] [address], from Last 3 Months Insurance [employer] MEDICARE Care Teams [employer] Supervisor Relationship Specialty Start Date End Date Isma Lewis MD 175 [facility] [address] [place] [address] PCP - General Internal Medicine 09/28/18
== END 2024-11-12 12:32 | disposition home or self-care (01) ==
LOC: HO.US 12:31
PROVIDERS: PCP Internal Medicine; Visit Provider Internal Medicine Nephrology
DX: N18.31 Chronic kidney disease, stage 3a (principal); I10 Essential (primary) hypertension
CPT/HCPCS: 76775; 93975

== ENCOUNTER → 2024-11-12 12:33 | Outpatient (BNV) | payer MEDICARE, SELFPAY | PROVIDERS: PCP Internal Medicine; Visit Provider Radiology Diagnostic Radiology | DX: I10 Essential (primary) hypertension (principal) | CPT/HCPCS: 76775; 93975 ==

== ENCOUNTER → 2024-11-17 10:06 | Outpatient (BNVA) | payer MEDICARE, SELFPAY | PROVIDERS: PCP Internal Medicine; Visit Provider Internal Medicine Nephrology ==

== ENCOUNTER 2024-11-18 09:57 | Outpatient (AMB) | payer MEDICARE, SELFPAY ==
--- NOTE | 2024-11-18 10:05 | HO.NEPHOV_ITS ---
Vital Signs 11/18/24 10:06 Height 6 ft Weight 180 lb BMI 24.4 BP 130/70 Blood Pressure Location Rt brachial Position Sitting Pulse 54 Pulse Source Pulse Oximeter Pulse Oximetry (%) 100 Oxygen Delivery Method Room Air Intake Visit Reasons: 2wk follow-up Continuity Tester Required: No Accompanied by: Spouse Allergies No Known Allergies Allergy (Verified 11/18/24 10:06) HPI Comments Details: Pankaj was seen in follow up for CKD & hypertension. He has been having hypertension for a long time but continues to be labile inspite of medication and its compliance. He also has CKD as well as renal calculus. He denies any CAD,CVA, CHF, PAD or known MIKE. He denies any H/O hypokalemia, uncontrolled thyroid disorders, JOSE ALFREDO, palpitations. He is a smoker. He has H/O prostate cancer. He monitors his BP at home and remains labile. He had ECHO done in the past which has been Okay as per the patient and PCP note. He has H/O orthostatic hypotension. He is on Bystolic and losartan. He denies chest pain, SOB, PND, orthopnea, edema, palpitations or syncope. He had a 24 hour BPM which showed 24 hour average 134/70 , day time average 142/74 and night time average of 119/62. USS showed no MIKE but a left kidney renal calculus [facility] Medical History (Updated 11/15/24 @ 19:55 by Flaco Funez MD) Left cervical radiculopathy Chronic depression Anxiety BPH (benign prostatic hyperplasia) Prostate cancer Hyperlipidemia Hypertension Elevated serum creatinine Bilateral carpal tunnel syndrome Dyspnea Orthostatic hypotension Adenomatous polyp of colon Surgical History History of cataract surgery H/O carpal tunnel repair S/P total knee arthroplasty H/O hernia repair H/O lithotripsy H/O cystoscopy Hx of cholecystectomy S/P partial colectomy History of bowel resection History of knee replacement Family History Mother Heart disease Cancer Father Cancer Hypertension Paternal Grandfather Cancer Social History Alcohol intake: former Patient Tobacco Use Status: Current everyday Tobacco user Tobacco use type: Cigar Physical Exam Vital Signs: Last Vital Signs Pulse 54 11/18/24 10:06 BP 130/70 11/18/24 10:06 Pulse Ox 100 11/18/24 10:06 Oxygen Delivery Method Room Air 11/18/24 10:06 BMI result Body Mass Index 24.4 Results Reviewed Nephrology Results: Sodium 139 mmol/L (135-145) 11/04/24 Potassium 4.3 mmol/L (3.3-5.1) 11/04/24 Chloride 109 mmol/L (96-108) H 11/04/24 Carbon Dioxide 22 mmol/L (22-29) 11/04/24 BUN 23 mg/dL (9-16) H 11/04/24 Creatinine 1.27 mg/dL (0.5-1.4) 11/04/24 Calcium 9.0 mg/dL (8.4-10.2) 11/04/24 Phosphorus 3.1 mg/dL (2.7-4.5) 11/04/24 PTH Intact 102.2 pg/mL (8.7-77.1) H 11/04/24 Urine Protein Trace mg/dL (Neg-Trace) 11/04/24 Urine Creatinine 267.04 mg/dL 11/04/24 Protein/Creatinin Ratio 0.07 (<0.2) 11/04/24 Renal US 11/12/24 Assessment & Plan Assessment & Plan (1) Hypertension: Code(s): I10 - Essential (primary) hypertension Category: Medical Qualifiers: Hypertension type: primary hypertension Qualified Code(s): I10 - Essential (primary) hypertension (2) CKD stage 3a, GFR 45-59 ml/min: Code(s): N18.31 - Chronic kidney disease, stage 3a Category: Medical Plan Pankaj is known to have CKD 3 with hypertension. His BP remains labile . He had a 24 hour BPM which showed 24 hour average 134/70 , day time average 142/74 and night time average of 119/62. He is on losartan and bystolic. He has H/O or thostatic drop in BP. Renal imaging including Doppler of renal arteries did not show any MIKE but had a left renal calculus.. He maintains good hydration and avoids NSAID's. His UO is good and does not have any edema. I started him on Chlorthalidone 12.5 mg daily which I may increase with time. Answered all questions. . F/U labs ordered Orders: Orders Creatinine 2 Months I10 - Essential (primary) hypertension, N18.31 - Chronic kidney disease, stage 3a Blood Urea Nitrogen 2 Months I10 - Essential (primary) hypertension, N18.31 - Chronic kidney disease, stage 3a Calcium 2 Months I10 - Essential (primary) hypertension, N18.31 - Chronic kidney disease, stage 3a Electrolytes 2 Months I10 - Essential (primary) hypertension, N18.31 - Chronic kidney disease, stage 3a Medications: New chlorthalidone 12.5 mg (1/2 x 25 mg) PO DAILY 90 days 45 tabs 3RF Coding Level of Care Code Est Pt Level 4 (62523) Diagnoses Primary hypertension I10 Hypertension type: primary hypertension CKD stage 3a, GFR 45-59 ml/min N18.31
[2024-11-18 10:06] VITALS: BP 130/70; PULSE 54; O2SAT 100; BMI 24.4
--- OUTSIDE RECORDS SUMMARY | 2024-11-18 11:28 | XMS_ITS | Encounter Summary ---
Author Organization [facility] Address [address] [place] [address] Care Team Providers Care Fashion Buyer Name Role Phone Isma Lewis MD Primary Care Provider [phone] Velma Humphrey MD Unavailable [phone] Encounter Details Date Type Department Care Team Description 06/20/2022 Telephone Internal Medicine - [address], [address] [place] [address] Isma Lewis MD [address] [place] [address] Social History Tobacco Use Types Packs/Day Years Used Date Smoking Tobacco: Some Days Cigars Smokeless Tobacco: Never Comments:1 day Alcohol Use Standard Drinks/Week Comments Never 0 (1 standard drink = 0.6 oz pur e alcohol) Sex Assigned at Date Recorded Not on file COVID-19 Exposure Response Date Recorded In the last 10 days, have yo u been in contact with someone who was confirmed or suspected to have Coronavirus/COVID-19? No / Unsure 06/12/2022 11:10 AM EDT documented as of this encounter Miscellaneous Notes * Telephone Encounter - Avelino Chopra - 06/20/2022 1:55 PM EST please advise I just spoke with pt he was upset pt stated he dosent have chronic kidney desease * Telephone Encounter - Avelino Chopra - 06/20/2022 1:55 PM EST ----- Message from Isma Lewis MD sent at 05/15/2022 4:41 PM EDT ----- Chronic kidney disease which is stable other labs are looking stable. documented in this encounter Plan of Treatment Not on file documented as of this encounter Visit Diagnoses Not on filedocumented in this encounter Care Teams Fashion Buyer Relationship Specialty Start Date End Date Isma Lewis MD [address] [place] [address] PCP - General Internal Medicine 09/28/18 Velma Humphrey MD [address] [place] [address] Specialist Cardiology 10/14/22 documented as of this encounter
--- OUTSIDE RECORDS SUMMARY | 2024-11-18 11:29 | XMS_ITS | Encounter Summary ---
Author Organization [facility] Address [address] [place] [address] Care Team Providers Care Scouring Train Operator Name Role Phone Isma Lewis MD Primary Care Provider [phone] Velma Humphrey MD Unavailable [phone] Encounter Details Date Type Department Care Team Description 03/15/2024 General Neurologist Report Medical Records [address] [place] [address] Social History Tobacco Use Types Packs/Day Years Used Date Smoking Tobacco: Some Days Pipe Cigars Smokeless Tobacco: Never Comments:Quit 1976, smoked 1 pack daily patient states he smoked for about 9 years . Smokes cigars occ Alcohol Use Standard Drinks/Week Comments Not Currently 0 (1 standard drink = 0.6 oz pure alcohol) patient states he quit 1986 , had a couples beers daily . Sex Assigned at Date Recorded Not on file documented as of this encounter Plan of Treatment Not on file documented as of this encounter Visit Diagnoses Not on filedocumented in this encounter Care Teams Scouring Train Operator Relationship Specialty Start Date End Date Isma Lewis MD [address] [place] [address] PCP - General Internal Medicine 09/28/18 Velma Humphrey MD [address] [place], [place] [id number] Specialist Cardiology 10/14/22 documented as of this encounter
--- OUTSIDE RECORDS SUMMARY | 2024-11-18 11:29 | XMS_ITS | Encounter Summary ---
Author Organization [facility] Address [address] [place] [address] Care Team Providers Care Pigment Supplier Name Role Phone Isma Lewis MD Primary Care Provider [phone] Velma Humphrey MD Unavailable [phone] Encounter Details Date Type Department Care Team Description 10/05/2018 Release of Information Medical Records [address] [place] [id number] Abstract, Provider Social History Tobacco Use Types Packs/Day Years Used Date Smoking Tobacco: Some Days Cigars Smokeless Tobacco: Never Sex Assigned at Date Recorded Not on file documented as of this encounter Plan of Treatment Not on file documented as of this encounter Visit Diagnoses Not on filedocumented in this encounter Care Teams Pigment Supplier Relationship Specialty Start Date End Date Isma Lewis MD [address] [place] [address] PCP - General Internal Medicine 09/28/18 Velma Humphrey MD [address] [place], [place] [phone] Specialist Cardiology 10/14/22 documented as of this encounter
--- OUTSIDE RECORDS SUMMARY | 2024-11-18 11:29 | XMS_ITS | Encounter Summary ---
Author Organization [facility] Address [address] [place] [address] Care Team Providers Care Box Cutter Name Role Phone Isma Lewis MD Primary Care Provider [phone] Velma Humphrey MD Unavailable [phone] Encounter Details Date Type Department Care Team Description 02/26/2021 Orders Only Internal Medicine - [address], [address] [place] [address] Isma Lewis MD [address] [place], [place] [id number] Social History Tobacco Use Types Packs/Day Years Used Date Smoking Tobacco: Some Days Cigars Smokeless Tobacco: Never Sex Assigned at Date Recorded Not on file COVID-19 Exposure Response Date Recorded In the last month, have you been in contact with someone who was confirmed or suspected to have Coronavirus / COVID-19? No / Unsure 02/26/2021 9:37 AM EDT documented as of this encounter Plan of Treatment Not on file documented as of this encounter Visit Diagnoses Not on filedocumented in this encounter Care Teams Box Cutter Relationship Specialty Start Date End Date Isma Lewis MD [address] [place], [place] [phone] PCP - General Internal Medicine 09/28/18 Velma Humphrey MD [address] [place] [address] Specialist Cardiology 10/14/22 documented as of this encounter
--- OUTSIDE RECORDS SUMMARY | 2024-11-18 11:29 | XMS_ITS | Encounter Summary ---
Author Organization [facility] Address [address] [place] [address] Care Team Providers Care Garbage Depot Worker Name Role Phone Isma Lewis MD Primary Care Provider Velma Humphrey MD Unavailable [phone] Encounter Details Date Type Department Care Team Description 10/15/2018 Regional Coordinator Report Medical Records [address] [place] [address] Sofia Baum MD Social History Tobacco Use Types Packs/Day Years Used Date Smoking Tobacco: Some Days Cigars Smokeless Tobacco: Never Sex Assigned at Date Recorded Not on file documented as of this encounter Plan of Treatment Not on file documented as of this encounter Visit Diagnoses Not on filedocumented in this encounter Care Teams Garbage Depot Worker Relationship Specialty Start Date End Date Isma Lewis MD [address] [place], [place] [phone] PCP - General Internal Medicine 09/28/18 Velma Humphrey MD [address] [place], [place] [phone] Specialist Cardiology 10/14/22 documented as of this encounter
--- OUTSIDE RECORDS SUMMARY | 2024-11-18 11:29 | XMS_ITS | Encounter Summary ---
Author Organization [facility] Address [address] [place] [address] Care Team Providers Care Sales Representative Church Furniture Name Role Phone Isma Lewis MD Primary Care Provider [phone] Velma Humphrey MD Unavailable [phone] Reason for Visit * Reason Onset Date Comments Faxed Refill 04/18/2020 Encounter Details Date Type Department Care Team Description 04/18/2020 Refill Internal Medicine - [address], [address] [place] [address] Isma Lewis MD [address] [place] [address] Faxed Refill Social History Tobacco Use Types Packs/Day Years Used Date Smoking Tobacco: Some Days Cigars Smokeless Tobacco: Never Sex Assigned at Date Recorded Not on file documented as of this encounter Plan of Treatment Not on file documented as of this encounter Visit Diagnoses Not on filedocumented in this encounter Care Teams Sales Representative Church Furniture Relationship Specialty Start Date End Date Isma Lewis MD [address] [place] [address] PCP - General Internal Medicine 09/28/18 Velma Humphrey MD [address] [place], [place] [phone] Specialist Cardiology 10/14/22 documented as of this encounter
--- OUTSIDE RECORDS SUMMARY | 2024-11-18 11:29 | XMS_ITS | Encounter Summary ---
Author Organization [facility] Address [address] [place] [address] Care Team Providers Care Tongsman Name Role Phone Isma Lewis MD Primary Care Provider [phone] Velma Humphrey MD Unavailable [phone] Encounter Details Date Type Department Care Team Description 12/06/2022 SCAN Medical Records [address] [place] [address] [facility] Social History Tobacco Use Types Packs/Day Years Used Date Smoking Tobacco: Former Cigars Smokeless Tobacco: Never Comments:Quit 1976, smoked 1 pack daily patient states he smoked for about 9 years . Alcohol Use Standard Drinks/Week Comments Not Currently [...] suspected to have Coronavirus/COVID-19? No / Unsure 12/06/2022 9:54 AM EDT documented as of this encounter Plan of Treatment Not on file documented as of this encounter Visit Diagnoses Not on filedocumented in this encounter Care Teams Tongsman Relationship Specialty Start Date End Date Isma Lewis MD [address] [place] [address] PCP - General Internal Medicine 09/28/18 Velma Humphrey MD [address] [place], [place] [phone] Specialist Cardiology 10/14/22 documented as of this encounter
--- OUTSIDE RECORDS SUMMARY | 2024-11-18 11:29 | XMS_ITS | Clinical Summary ---
Author Organization [facility] [address] [place] [address] Phone Care Team Providers Care Cantilever Crane Operator Name Role Phone Isma Lewis MD Primary Care Provider [phone] Medications losartan (COZAAR) 50 MG tablet Take 50 mg by mouth in the morning and 50 mg in the evening. Active nebivolol (BYSTOLIC) 10 MG tablet Take 10 mg by mouth 1 (one) time each day Active Encounters Date Type Department Care Team Description 10/18/2024 10:45 AM EDT Office Visit [facility] [address] [place] [address] Sammy Hall MD Stage 3a chronic kidney disease (HCC) (Primary Dx); Hypertension; Nephrolithiasis; Primary malignant neoplasm of prostate (HCC) 08/26/2024 Telephone [facility] [address] [place] [address] Randi Connelly MA from Last 3 Months [...] Visit [facility] [place], [address] [place] [phone] Sammy Hall MD [address] [place] [phone] Health Maintenance Due Date Last Done Comments Influenza Vaccine (Season Ended) 2025 04/25/2020 Pneumococcal Vaccine: 50+ Years Completed 04/07/2018, 03/27/2017 Hepatitis B Vaccine Aged Out No longe r eligible based on patient's age to complete this topic Insurance [id number] Medicare Care Teams Cantilever Crane Operator Relationship Specialty Start Date End Date Isma Lewis MD [address] [facility] [address] [place], [place] [phone] PCP - General Internal Medicine 07/22/22
--- OUTSIDE RECORDS SUMMARY | 2024-11-18 11:29 | XMS_ITS | Clinical Summary ---
Author Organization [facility] Address [address] [place] [address] Care Team Providers Care Teacher Of The Hearing Impaired Name Role Phone Isma Lewis MD Primary [...] age to complete this topic Care Teams Teacher Of The Hearing Impaired Relationship Specialty Start Date End Date Isma Lewis MD PCP - General Internal Medicine 09/25/23
--- OUTSIDE RECORDS SUMMARY | 2024-11-18 11:29 | XMS_ITS | Encounter Summary ---
Author Organization [facility] Address [address] [place] [address] Care Team Providers Care Solid Waste Collection Worker Name Role Phone Isma Lewis MD Primary Care Provider [phone] Velma Humphrey MD Unavailable [phone] Reason for Visit * Reason Onset Date Comments refill request 05/25/2020 Encounter Details Date Type Department Care Team Description 05/25/2020 Refill Internal Medicine - [address], [address] [place] [address] Isma Lewis MD [address] [place] [address] refill request Social History Tobacco Use Types Packs/Day Years Used Date Smoking Tobacco: Some Days Cigars Smokeless Tobacco: Never Sex Assigned at Date Recorded Not on file COVID-19 Exposure Response Date Recorded In the last month, have you been in contact with someone who was confirmed or suspected to have Coronavirus / COVID-19? No / Unsure 04/25/2020 10:00 AM EDT documented as of this encounter Miscellaneous Notes * Telephone Encounter - Elodia Godfrey M.A. - 05/26/2020 10:12 AM EDT Lab Results Component Value Date NA 142 03/23/2019 K 4.2 03/23/2019 CO2 24 03/23/2019 CL 108 03/23/2019 BUN 18 03/23/2019 CREAT 1.29 03/23/2019 GLU 88 03/23/2019 ALB 4.0 10/20/2018 SGOT 30 10/20/2018 SGPT 48 10/20/2018 TBILI 0.5 10/20/2018 ALKPHOS 47 10/20/2018 TP 6.9 10/20/2018 CA 8.9 03/23/2019 GFR 55 03/23/2019 * Telephone Encounter - Marcella Pisano - 05/25/2020 2:01 PM EDT Patient would like script to be: E-PRESCRIBED/FAXED TO PHARMACY WHEN WAS THE PATIENT'S LAST APPOINTMENT IN ADULT MEDICINE? 04-25-2020 WHEN WAS THE LAST TIME THE PATIENT SAW THEIR PCP? Same as above Does patient have an upcoming appointment? Yes 08-28-2020 (THE MEDICATION REQUESTED IS ON THE MED LIST ABOVE) Did you check the Pharmacy information above?: YES Patient wants: 90 -day supply Is this a mail order prescription request ? NO If the refill is from a FAXED refill request what is the RX # listed on the fax? N/A Patients current insurance carrier is: Payor: [facility] / Plan: [facility] MEDICARE COMPLETE $25/$50 [facility] / Product Type: PPO [id number] documented in this encounter Plan of Treatment Not on file documented as of this encounter Visit Diagnoses Not on filedocumented in this encounter Care Teams Solid Waste Collection Worker Relationship Specialty Start Date End Date Isma Lewis MD [address] [place] [address] PCP - General Internal Medicine 09/28/18 Velma Humphrey MD [address] [place] [address] Specialist Cardiology 10/14/22 documented as of this encounter
--- OUTSIDE RECORDS SUMMARY | 2024-11-18 11:29 | XMS_ITS | Encounter Summary ---
Author Organization [facility] Address [address] [place] [address] Care Team Providers Care Belt Machine Operator Name Role Phone Isma Lewis MD Primary Care Provider [phone] Velma Humphrey MD Unavailable [phone] Reason for Visit * Reason Comments E-prescribe Rx Request SERTRALINE HCL 10 0 MG TABLET Encounter Details Date Type Department Care Team Description 07/24/2019 Refill Adult Med - [facility] [address] [place], [place] [phone] Isma Lewis MD [address] [place], [place] [phone] E-prescribe Rx Request (SERTRALINE HCL 100 MG TABLET) Social History Tobacco Use Types Packs/Day Years Used Date Smoking Tobacco: Some Days Cigars Smokeless Tobacco: Never Sex Assigned at Date Recorded Not on file documented as of this encounter Miscellaneous Notes * Telephone Encounter - Alexsandra Marques - 07/26/2019 8:17 AM EST Patient would like script to be: E-PRESCRIBED/FAXED TO PHARMACY WHEN WAS THE PATIENT'S LAST APPOINTMENT IN ADULT MEDICINE? 07/02/2019 WHEN WAS THE LAST TIME THE PATIENT SAW THEIR PCP? Same as above Does patient have an upcoming appointment? Yes 09/15/2019 (THE MEDICATION REQUESTED IS ON THE MED LIST ABOVE) All of the medications requested were on the CURRENT MEDS list Did you check the Pharmacy information above?: YES Patient wants: 30 -day supply Is this a mail order prescription request ? NO If the refill is from a FAXED refill request what is the RX # listed on the fax? N/A Patients current insurance carrier is: Payor: [facility] / Plan: [employer] MEDICARE COMPLETE $15/$45 [facility] [id number] / Product Type: PPO [id number] documented in this encounter Plan of Treatment Not on file documented as of this encounter Visit Diagnoses Not on filedocumented in this encounter Care Teams Belt Machine Operator Relationship Specialty Start Date End Date Isma Lewis MD [address] [place] [address] PCP - General Internal Medicine 09/28/18 Velma Humphrey MD [address] [place] [address] Specialist Cardiology 10/14/22 documented as of this encounter
--- OUTSIDE RECORDS SUMMARY | 2024-11-18 11:29 | XMS_ITS | Encounter Summary ---
Author Organization [facility] Address [address] [place] [address] Care Team Providers Care Transitional Studies Instructor Name Role Phone Isma Lewis MD Primary Care Provider [phone] Velma Humphrey MD Unavailable [phone] Reason for Visit * Reason Onset Date Comments Annual Wellness Outreach 04/11/2021 Encounter Details Date Type Department Care Team Description 04/11/2021 Telephone Adult Medicine [address] [address] Isma Lewis MD [address] [place] [address] Annual Wellness Outreach Social History Tobacco Use Types Packs/Day Years Used Date Smoking Tobacco: Some Days Cigars Smokeless Tobacco: Never Sex Assigned at Date Recorded Not on file documented as of this encounter Miscellaneous Notes * Telephone Encounter - Veronica Jose - 04/30/2021 12:40 PM EDT Mr. Martinez was contacted by telephone. Third attempt utr * Telephone Encounter - Veronica Jose - 04/23/2021 2:08 PM EDT Mr. Martinez was contacted by telephone. Second attempt left message with salvatore * Telephone Encounter - Jose Saha M.A. - 04/11/2021 1:36 PM EDT Mr. Martinez was contacted by telephone. 1st attempt. lvm documented in this encounter Plan of Treatment Not on file documented as of this encounter Visit Diagnoses Not on filedocumented in this encounter Care Teams Transitional Studies Instructor Relationship Specialty Start Date End Date Isma Lewis MD [address] [place] [address] PCP - General Internal Medicine 09/28/18 Velma Humphrey MD [address] [place] [address] Specialist Cardiology 10/14/22 documented as of this encounter
--- OUTSIDE RECORDS SUMMARY | 2024-11-18 11:29 | XMS_ITS | Encounter Summary ---
Author Organization [facility] Address [address] [place] [address] Care Team Providers Care Contract Sheltered Workshop Supervisor Name Role Phone Isma Lewis MD Primary Care Provider [phone] Velma Humphrey MD Unavailable [phone] Reason for Visit * Reason Comments E-prescribe Rx Request Encounter Details Date Type Department Care Team Description 10/03/2019 Refill Internal Medicine - [address], [address] [place] [address] Isma Lewis MD [address] [place] [address] E-prescribe Rx Request Social History Tobacco Use Types Packs/Day Years Used Date Smoking Tobacco: Some Days Cigars Smokeless Tobacco: Never Sex Assigned at Date Recorded Not on file documented as of this encounter Miscellaneous Notes * Telephone Encounter - Elodia Godfrey M.A. - 10/04/2019 11:09 AM EST Refill sent to pcp BP Readings from Last 3 Encounters: 09/15/19 128/64 07/02/19 (!) 140/70 06/22/19 136/66 Lab Results Component Value Date NA 142 03/23/2019 K 4.2 03/23/2019 CO2 24 03/23/2019 CL 108 03/23/2019 BUN 18 03/23/2019 CREAT 1.29 03/23/2019 GLU 88 03/23/2019 CA 8.9 03/23/2019 GFR 55 03/23/2019 * Telephone Encounter - Rossy Copeland - 10/04/2019 11:01 AM EST Patient would like script to be: E-PRESCRIBED/FAXED TO PHARMACY WHEN WAS THE PATIENT'S LAST APPOINTMENT IN ADULT MEDICINE? 09/15/2019 WHEN WAS THE LAST TIME THE PATIENT SAW THEIR PCP? Same as above Does patient have an upcoming appointment? Yes 11/24/2019 (THE MEDICATION REQUESTED IS ON THE MED [...] N/A Patients current insurance carrier is: Payor: [facility] / Plan: [facility] MEDICARE COMPLETE $25/$50 SLC / Product Type: PPO [id number] documented in this encounter Plan of Treatment Not on file documented as of this encounter Visit Diagnoses Not on filedocumented in this encounter Care Teams Contract Sheltered Workshop Supervisor Relationship Specialty Start Date End Date Imsa Lewis MD [address] [place] [address] PCP - General Internal Medicine 09/28/18 Velma Humphrey MD [address] [place] [address] Specialist Cardiology 10/14/22 documented as of this encounter
--- OUTSIDE RECORDS SUMMARY | 2024-11-18 11:29 | XMS_ITS | Encounter Summary ---
Author Organization [facility], Address [address] [place] [phone] Phone Care Team Providers Care Overcoil Stepper Name Role Phone Isma Lewis MD Primary Care Provider [phone] Encounter Details Date Type Department Care Team (Late st Contact Info) Description 07/22/2022 Documentation Only [facility] [address] [place] [address] Isma Lewis MD [address] [place] [address] Social History Tobacco Use Types Packs/Day Years [...] Visit [facility], [address] [facility] [address] Sammy Hall MD [address] [place] [address] [place] [phone] documented as of this encounter Visit Diagnoses Not on filedocumented in this encounter Care Teams Overcoil Stepper Relationship Specialty Start Date End Date Isma Lewis MD [address] [place] [address] PCP - General Internal Medicine 07/22/22 documented as of this encounter
--- OUTSIDE RECORDS SUMMARY | 2024-11-18 11:29 | XMS_ITS | Encounter Summary ---
Author Organization [facility] Address [address] [place] [address] Care Team Providers Care Direct Care Specialist Name Role Phone Isma Lewis MD Primary Care Provider [phone] Velma Humphrey MD Unavailable [phone] Reason for Visit * Reason Onset Date Comments refill request 05/19/2023 Encounter Details Date Type Department Care Team Description 05/19/2023 Refill Internal Medicine - [address], [address] [place] [address] Isma Lewis MD [address] [place] [address] refill request Social History Tobacco Use Types [...] encounter Miscellaneous Notes * Telephone Encounter - Jami Nix - 05/19/2023 11:15 AM EDT BP Readings from Last 3 Encounters: 03/28/23 106/57 03/26/23 121/70 03/03/23 118/60 * Telephone Encounter - Gricelda Brown - 05/19/2023 9:15 AM EDT Julianne 03/03/23 Nov 08/15/23 No longer has medication documented in this encounter Plan of Treatment Not on file documented as of this encounter Visit Diagnoses Not on filedocumented in this encounter Care Teams Direct Care Specialist Relationship Specialty Start Date End Date Isma Lewis MD [address] [place] [address] PCP - General Internal Medicine 09/28/18 Velma Humphrey MD [address] [place] [address] Specialist Cardiology 10/14/22 documented as of this encounter
--- OUTSIDE RECORDS SUMMARY | 2024-11-18 11:29 | XMS_ITS | Encounter Summary ---
Author Organization [facility] Address [address] [place] [address] Care Team Providers Care Accelerator Systems Director Name Role Phone Isma Lewis MD Primary Care Provider Velma Humphrey MD Unavailable [phone] Reason for Visit * Reason Onset Date Comments Faxed Refill 11/22/2021 Encounter Details Date Type Department Care Team Description 11/22/2021 Refill Internal Medicine - [address], [address] [place] [address] Isma Lewis MD [address] [place] [address] Faxed Refill Social History Tobacco Use Types [...] suspected to have Coronavirus/COVID-19? No / Unsure 11/12/2021 8:46 AM EDT documented as of this encounter Miscellaneous Notes * Telephone Encounter - Estella Flores [place] - 11/22/2021 9:00 AM EDT BP Readings from Last 5 Encounters: 07/12/21 (!) 144/70 02/26/21 108/58 08/28/20 (!) 148/72 04/25/20 (!) 162/84 09/15/19 128/64 Lab Results Component Value Date NA 138 11/12/2021 K 4.9 11/12/2021 CO2 26 11/12/2021 CL 107 11/12/2021 BUN 24 11/12/2021 CREAT 1.58 11/12/2021 GLU 131 11/12/2021 ALB 4.3 11/12/2021 SGOT 25 11/12/2021 SGPT 42 11/12/2021 TBILI 0.4 11/12/2021 ALKPHOS 52 11/12/2021 TP 7.3 11/12/2021 CA 9.4 11/12/2021 GFR 43 11/12/2021 * Telephone Encounter - Rina Barron - 11/22/2021 8:57 AM EDT Patient would like script to be: E-PRESCRIBED/FAXED TO PHARMACY WHEN WAS THE PATIENT'S LAST APPOINTMENT IN ADULT MEDICINE? 07/12/2021 WHEN WAS THE LAST TIME THE PATIENT SAW THEIR PCP? Same as above Does patient have an upcoming appointment? Yes 12/13/2021 (THE MEDICATION REQUESTED IS ON THE MED LIST ABOVE) All of the medications requested were on the CURRENT MEDS list Did you check the Pharmacy information above?: YES Patient wants: 90 -day supply Is this a mail order prescription request ? NO If the refill is from a FAXED refill request what is the RX # listed on the fax? [id number] Patients current insurance carrier is: Payor: [facility] MEDICARE FFS / Plan: [facility] MDCR-ADV PPO $0 [place] [id number] / Product Type: PPO [id number] documented in this encounter Plan of Treatment Not on file documented as of this encounter Visit Diagnoses Not on filedocumented in this encounter Care Teams Accelerator Systems Director Relationship Specialty Start Date End Date Isma Lewis MD [address] [place] [address] PCP - General Internal Medicine 09/28/18 Velma Humphrey MD [address] [place] [address] Specialist Cardiology 10/14/22 documented as of this encounter
--- OUTSIDE RECORDS SUMMARY | 2024-11-18 11:29 | XMS_ITS | Encounter Summary ---
Author Organization [facility] Address [address] [place] [address] Care Team Providers Care Shot Grinder Operator Name Role Phone Isma Lewis MD Primary Care Provider [phone] Velma Humphrey MD Unavailable [phone] Reason for Visit * Reason Onset Date Comments refill request 02/26/2022 Encounter Details Date Type Department Care Team Description 02/26/2022 Refill Internal Medicine - [address], [address] [place] [address] Isma Lewis MD [address] [place] [address] refill request Social History Tobacco Use Types Packs/Day Years Used Date Smoking Tobacco: Some Days Cigars Smokeless Tobacco: Never Comments:1 day Alcohol Use Standard Drinks/Week Comments Never 0 (1 standard drink = 0.6 oz pur e alcohol) Sex Assigned at Date Recorded Not on file documented as of this encounter Miscellaneous Notes * Telephone Encounter - Priscilla Molina M.A. - 02/26/2022 9:47 AM EDT Rx last refilled on 08/30/2021 Orders Only on 11/12/2021 Component Date Value ??? FREE T4 CASCADE 11/12/2021 0.93 Orders Only on 11/12/2021 Component Date Value ??? GLUCOSE 11/12/2021 131 (A) ??? Blood Urea Nitrogen 11/12/2021 24 ??? CREAT 11/12/2021 1.58 (A) ??? GLOMERULAR FILTRATION RA* 11/12/2021 43 ??? NA 11/12/2021 138 ??? K 11/12/2021 4.9 ??? CL 11/12/2021 107 ??? CARBON DIOXIDE (CO2) 11/12/2021 26 ??? ANION GAP 11/12/2021 5 ??? CALCIUM 11/12/2021 9.4 ??? Albumin 11/12/2021 4.3 ??? SGOT 11/12/2021 25 ??? SGPT 11/12/2021 42 ??? TOTAL PROTEIN (TP) 11/12/2021 7.3 ??? BILIRUBIN TOTAL 11/12/2021 0.4 ??? ALK PHOS 11/12/2021 52 ??? WHITE BLOOD COUNT 11/12/2021 4.9 ??? RED BLOOD COUNT 11/12/2021 4.8 ??? Hemoglobin 11/12/2021 14.5 ??? Hematocrit 11/12/2021 43.9 ??? MEAN CORPUSCULAR VOLUME 11/12/2021 92.0 ??? MEAN CORPUSCULAR HEMOGLO* 11/12/2021 30.4 ??? MEAN CORPUSCULAR HGB CONC 11/12/2021 33.0 ??? RED CELL DISTRIBUTION WI* 11/12/2021 13.6 ??? PLT COUNT 11/12/2021 143 ??? MEAN PLATELET VOLUME 11/12/2021 10.5 ??? NRBC % AUTO 11/12/2021 0.0 ??? NEUTROPHILS % 11/12/2021 72.2 ??? LYMPH % 11/12/2021 19.0 ??? MONO % 11/12/2021 6.8 ??? EOS % 11/12/2021 1.0 ??? BASO % 11/12/2021 0.6 ??? IMMATURE GRANULOCYTES % 11/12/2021 0.4 ??? NRBC # AUTO 11/12/2021 0.00 ??? NEUT # 11/12/2021 3.50 ??? LYMPH # 11/12/2021 0.92 (A) ??? MONO # 11/12/2021 0.33 ??? EOS # 11/12/2021 0.05 ??? BASO # 11/12/2021 0.03 ??? IMMATURE GRANULOCYTES # 11/12/2021 0.02 ??? TSH CASCADE 11/12/2021 5.05 (A) * Telephone Encounter - Marcella Pisano - 02/26/2022 9:44 AM EDT Patient would like script to be: E-PRESCRIBED/FAXED TO PHARMACY WHEN WAS THE PATIENT'S LAST APPOINTMENT WITH THE PRESCRIBING PROVIDER? 12-13-2021 Does patient have an upcoming appointment? Yes 05-15-2022 (THE MEDICATION REQUESTED IS ON THE MED LIST ABOVE) Did you check the Pharmacy information above?: YES Patient wants: 90 -day supply Is this a mail order prescription request ? NO Patients current insurance carrier is: Payor: [employer] MEDICARE FFS / Plan: [facility] MDCR-ADV PPO $0 [id number] / Product Type: PPO [id number] documented in this encounter Plan of Treatment Not on file documented as of this encounter Visit Diagnoses Not on filedocumented in this encounter Care Teams Shot Grinder Operator Relationship Specialty Start Date End Date Isma Lewis MD [address] [place], [place] [phone] PCP - General Internal Medicine 09/28/18 Velma Humphrey MD [address] [place], [place] [phone] Specialist Cardiology 10/14/22 documented as of this encounter
--- OUTSIDE RECORDS SUMMARY | 2024-11-18 11:29 | XMS_ITS | Encounter Summary ---
Author Organization [facility], Address [address] [place] [phone] Phone Care Team Providers Care Digester Name Role Phone Isma Lewis MD Primary Care Provider [phone] Encounter Details Date Type Department Care Team (Late st Contact Info) Description 08/08/2022 Documentation Only [facility] [address] [place] [address] Isma Lewis MD [address] [place] [address] Social History Tobacco Use Types Packs/Day Years [...] Visit [facility], [address] [place] [address] Sammy Hall MD [address] [place] [address] [place] [phone] documented as of this encounter Visit Diagnoses Not on filedocumented in this encounter Care Teams Digester Relationship Specialty Start Date End Date Isma Lewis MD [address] [place] [address] PCP - General Internal Medicine 07/22/22 documented as of this encounter
--- OUTSIDE RECORDS SUMMARY | 2024-11-18 11:29 | XMS_ITS | Encounter Summary ---
Author Organization [facility] Address [address] [place] [address] Care Team Providers Care Senior Center Manager Name Role Phone Isma Lewis MD Primary Care Provider [phone] Velma Humphrey MD Unavailable [phone] Reason for Visit * Reason Onset Date Comments refill request 04/18/2020 Encounter Details Date Type Department Care Team Description 04/18/2020 Refill Internal Medicine - [address], [address] [place] [address] Isma Lewis MD [address] [place] [address] refill request Social History Tobacco Use Types Packs/Day Years Used Date Smoking Tobacco: Some Days Cigars Smokeless Tobacco: Never Sex Assigned at Date Recorded Not on file documented as of this encounter Miscellaneous Notes * Telephone Encounter - Elodia Godfrey M.A. - 04/18/2020 1:44 PM EDT Lab Results Component Value Date NA 142 03/23/2019 K 4.2 03/23/2019 CO2 24 03/23/2019 CL 108 03/23/2019 BUN 18 03/23/2019 CREAT 1.29 03/23/2019 GLU 88 03/23/2019 ALB 4.0 10/20/2018 SGOT 30 10/20/2018 SGPT 48 10/20/2018 TBILI 0.5 10/20/2018 ALKPHOS 47 10/20/2018 TP 6.9 10/20/2018 CA 8.9 03/23/2019 GFR 55 03/23/2019 BP Readings from Last 3 Encounters: 09/15/19 128/64 07/02/19 (!) 140/70 06/22/19 136/66 * Telephone Encounter - Sejal Cespedes - 04/18/2020 10:27 AM EDT NERY 01/13/2020 NOV 04/25/2020 90 day supply. documented in this encounter Plan of Treatment Not on file documented as of this encounter Visit Diagnoses Not on filedocumented in this encounter Care Teams Senior Center Manager Relationship Specialty Start Date End Date Isma Lewis MD [address] [place] [address] PCP - General Internal Medicine 09/28/18 Velma Humphrey MD [address] [place] [address] Specialist Cardiology 10/14/22 documented as of this encounter
--- OUTSIDE RECORDS SUMMARY | 2024-11-18 11:29 | XMS_ITS | Encounter Summary ---
Author Organization [facility] Address [address] [place] [address] Care Team Providers Care Bid Clerk Name Role Phone Isma Lewis MD Primary Care Provider [phone] Velma Humphrey MD Unavailable [phone] Encounter Details Date Type Department Care Team Description 04/08/2019 Rn Appeals Report Medical Records [address] [place] [address] Merry Crain [address] [place] [address] Social History Tobacco Use Types Packs/Day Years Used Date Smoking Tobacco: Some Days Cigars Smokeless Tobacco: Never Sex Assigned at Date Recorded Not on file documented as of this encounter Plan of Treatment Not on file documented as of this encounter Visit Diagnoses Not on filedocumented in this encounter Care Teams Bid Clerk Relationship Specialty Start Date End Date Isma Lewis MD [address] [place], [place] [phone] PCP - General Internal Medicine 09/28/18 Velma Humphrey MD [address] [place] [phone] Specialist Cardiology 10/14/22 documented as of this encounter
--- OUTSIDE RECORDS SUMMARY | 2024-11-18 11:29 | XMS_ITS | Encounter Summary ---
Author Organization [facility] Address [address] [place] [address] Care Team Providers Care Development Officer Name Role Phone Isma Lewis MD Primary Care Provider [phone] Velma Humphrey MD Unavailable [phone] Encounter Details Date Type Department Care Team Description 01/07/2019 Telephone Gastroenterology - [address] [place] [address] Richard Frank MD [address] [place] [phone] Social History Tobacco Use Types Packs/Day Years Used Date Smoking Tobacco: Some Days Cigars Smokeless Tobacco: Never Sex Assigned at Date Recorded Not on file documented as of this encounter Miscellaneous Notes * Telephone Encounter - Joy Bennett - 01/07/2019 12:56 PM EDT All attempts to reach patient to schedule screening colonoscopy have been exhausted. documented in this encounter Plan of Treatment Not on file documented as of this encounter Visit Diagnoses Not on filedocumented in this encounter Care Teams Development Officer Relationship Specialty Start Date End Date Isma Lewis MD [address] [place], [place] [phone] PCP - General Internal Medicine 09/28/18 Velma Humphrey MD [address] [place] [address] Specialist Cardiology 10/14/22 documented as of this encounter
--- OUTSIDE RECORDS SUMMARY | 2024-11-18 11:29 | XMS_ITS | Encounter Summary ---
Author Organization [facility] Address [address] [place] [address] Care Team Providers Care Utility Worker Forge Name Role Phone Isma Lewis MD Primary Care Provider [phone] Velma Humphrey MD Unavailable [phone] Encounter Details Date Type Department Care Team Description 04/02/2023 Telephone General Surgery - [place] [address] [facility] [address] [place] [address] Slava Frances MD [address] [facility] [address] [place] [address] Social History Tobacco Use Types Packs/Day Years [...] suspected to have Coronavirus/COVID-19? No / Unsure 03/28/2023 10:59 AM EDT documented as of this encounter Miscellaneous Notes * Telephone Encounter - Wilils Adam M.A. - 04/02/2023 8:24 AM EDT Called patient for biopsy results below, no answer did leave a message for patient to call our office back. * Telephone Encounter - Willis Adam M.A. - 04/02/2023 8:23 AM EDT ----- Message from Slava Frances MD sent at 04/01/2023 4:35 PM EDT ----- Please tell the patient that the fat pad biopsy was negative for amyloid. Thanks documented in this encounter Plan of Treatment Not on file documented as of this encounter Visit Diagnoses Not on filedocumented in this encounter Care Teams Utility Worker Forge Relationship Specialty Start Date End Date Isma Lewis MD [address] [place] [address] PCP - General Internal Medicine 09/28/18 Velma Humphrey MD [address] [place] [address] Specialist Cardiology 10/14/22 documented as of this encounter
--- OUTSIDE RECORDS SUMMARY | 2024-11-18 11:29 | XMS_ITS | Encounter Summary ---
Author Organization [facility] Address [address] [place] [address] Care Team Providers Care Biofuels Operations Manager Name Role Phone Isma Lewis MD Primary Care Provider [phone] Reason for Visit * Reason Onset Date Comments Hypertension 09/20/2024 Encounter Details Date Type Department Care Team (Late st Contact Info) Description 09/20/2024 Telephone Internal Medicine - [place] [address] [place] [phone] Isma Lewis MD [address] [place] [address] Hypertension Social History Tobacco Use Types Packs/Day [...] for tomorrow FYI Call to pt # [phone], spoke to pt Informed pt that Dr. Lewis advised pt to notify his logger all round of elevated BP and to restart labetalol. pt reports he stopped taking Labetalol because it caused SOB quickly like just taking a shower, gasping for breath. I scheduled an appt with provider for tomorrow * Isma Lewis MD - 09/20/2024 11:43 AM EST I think he should check with his logger all round. And may go back to his old [...] Description 12/08/2024 9:10 AM EDT Office Visit [facility] [address] [facility] [address] [place] [address] Po Bernal NP [address] [place] [address] 01/13/2025 9:40 AM EDT Office Visit Gastroenterology - [address] [facility] [address] [place] [address] Mary Bermudez PA [address] [facility] [address] [place] [address] 02/21/2025 8:45 AM EDT Office Visit Internal Medicine - [place] [address] [phone] Isma Lewis MD [address] [address] 05/13/2025 10:00 AM EDT Office Visit [facility] Hematology Oncology [address] [place] [phone] Jhoan Lawrence MD [address] [place] [phone] 09/08/2025 10:30 AM EST Office Visit Pulmonolgy - [place] [address] [phone] Virgil Palomo MD [address] [address] documented as of this encounter Visit Diagnoses Not on filedocumented in this encounter Additional Health Concerns Assessment Noted Time PHQ-9 Depression Total Score: 0 08/23/19 9:55 AM EST A fall risk assessment has been complete d for the patient 08/23/2024 9:52 AM EST documented as of this encounter Care Teams Biofuels Operations Manager Relationship Specialty Start Date End Date Isma Lewis MD [address] [address] PCP - General Internal Medicine 09/28/18 documented as of this encounter
--- OUTSIDE RECORDS SUMMARY | 2024-11-18 11:29 | XMS_ITS | Encounter Summary ---
Author Organization [facility] Address [address] [place] [address] Care Team Providers Care Supervisor Aluminum Fabrication Name Role Phone Isma Lewis MD Primary Care Provider [phone] Velma Humphrey MD Unavailable [phone] Reason for Visit * Reason Onset Date Comments refill request 10/25/2019 Encounter Details Date Type Department Care Team Description 10/25/2019 Refill Internal Medicine - [address], [address] [place] [address] Isma Lewis MD [address] [place] [address] refill request Social History Tobacco Use Types Packs/Day Years Used Date Smoking Tobacco: Some Days Cigars Smokeless Tobacco: Never Sex Assigned at Date Recorded Not on file documented as of this encounter Miscellaneous Notes * Telephone Encounter - Elodia Godfrey M.A. - 10/25/2019 2:49 PM EDT Refill sent to pcp Lab Results Component Value Date ALB 4.0 10/20/2018 SGOT 30 10/20/2018 SGPT 48 10/20/2018 TBILI 0.5 10/20/2018 ALKPHOS 47 10/20/2018 TP 6.9 10/20/2018 * Telephone Encounter - Christina Ybarra - 10/25/2019 1:24 PM EDT Patient would like script to [...] N/A Patients current insurance carrier is: Payor: [facility] / Plan: [employer] MEDICARE COMPLETE $25/$50 SLC / Product Type: PPO [id number] documented in this encounter Plan of Treatment Not on file documented as of this encounter Visit Diagnoses Not on filedocumented in this encounter Care Teams Supervisor Aluminum Fabrication Relationship Specialty Start Date End Date Isma Lewis MD [address] [place] [address] PCP - General Internal Medicine 09/28/18 Velma Humphrey MD [address] [place] [address] Specialist Cardiology 10/14/22 documented as of this encounter
--- OUTSIDE RECORDS SUMMARY | 2024-11-18 11:29 | XMS_ITS | Encounter Summary ---
Author Organization [facility] Address [address] [place] [address] Care Team Providers Care Displayer Merchandise Name Role Phone Isma Lewis MD Primary Care Provider [phone] Velma Humphrey MD Unavailable [phone] Encounter Details Date Type Department Care Team Description 10/08/2018 Mid Level Business Analyst Report Medical Records [address] [place] [address] [address]ry Crain [address] [place] [address] Social History Tobacco Use Types Packs/Day Years Used Date Smoking Tobacco: Some Days Cigars Smokeless Tobacco: Never Sex Assigned at Date Recorded Not on file documented as of this encounter Plan of Treatment Not on file documented as of this encounter Visit Diagnoses Not on filedocumented in this encounter Care Teams Displayer Merchandise Relationship Specialty Start Date End Date Isma Lewis MD [address] [place], [place] [id number] PCP - General Internal Medicine 09/28/18 Velma Humphrey MD [address] [place] [address] [id number] Specialist Cardiology 10/14/22 documented as of this encounter
--- OUTSIDE RECORDS SUMMARY | 2024-11-18 11:29 | XMS_ITS | Encounter Summary ---
Author Organization [facility] Address [address] [place] [address] Care Team Providers Care Loading Unit Operator Powder Charging Name Role Phone Isma Lewis MD Primary Care Provider Velma Humphrey MD Unavailable [phone] Reason for Referral * Non MALU (Routine) - Closed Specialty Diagnoses / Procedures Referred By Contac t Referred To Contact General Surgery Procedures REFERRAL TO GENERAL SURGERY (IN NETWORK) Velma Humphrey MD [address] [place] [address] Gen Surg/[place] [address] [address] Referral ID Status Reason Start Date Expiration Date Visits Re quested Visits Authorized [id number] Closed 03/03/2023 1 1 Encounter Details Date Type Department Care Team Description 03/03/2023 Telephone Cardio PVC [facility] [address] [address] Velma Humphrey MD [address] [place] [address] [id number] Social History Tobacco Use Types Packs/Day Years [...] suspected to have Coronavirus/COVID-19? No / Unsure 03/03/2023 10:38 AM EDT documented as of this encounter Miscellaneous Notes * Telephone Encounter - Velma Humphrey MD - 03/03/2023 5:26 PM EDT Spoke with pathologist as well as hand surgeon. Unfortunately, no tissue samples were obtained after routine carpal tunnel release procedure as this is not typical. I also discussed the case with oncology informally. They recommended following up spot U TATYANA with 24-hour collection for light chains and immunofixation electrophoresis. I will also send the patient for fat pad biopsy. It will not help if it is negative but may help if it is positive. I reviewed all of this with the patient who is in agreement with the plan. Surgery consult placed for fat pad biopsy. Labs appropriately ordered. documented in this encounter Plan of Treatment Scheduled Orders Name Type Priority Associated Diagnoses Orde r Schedule KAPPA/LAMBDA LIGHT CHAINS URINE (24HR/RAND) Lab Routine Orthostatic hypotension Dyspnea on effort Expected: 03/03/2023, Expires: 03/03/2024 IMMUNOFIX ELECTROPHORESIS,URIN Lab Routine Orthostatic hypotension Dyspnea on effort Expected: 03/03/2023, Expires: 03/03/2024 documented as of this encounter Visit Diagnoses Diagnosis Orthostatic hypotension- Primary Dyspnea on effort Other dyspnea and respiratory abnormality documented in this encounter Care Teams Loading Unit Operator Powder Charging Relationship Specialty Start Date End Date Isma Lewis MD [address] [place] [address] PCP - General Internal Medicine 09/28/18 Velma Humphrey MD [address] [place] [address] Specialist Cardiology 10/14/22 documented as of this encounter
--- OUTSIDE RECORDS SUMMARY | 2024-11-18 11:29 | XMS_ITS | Encounter Summary ---
Author Organization [facility] Address [address] [place] [address] Care Team Providers Care Hvac Technician Residential Name Role Phone Isma Lewis MD Primary Care Provider [phone] Velma Humphrey MD Unavailable [phone] Reason for Referral * EXTERNAL (Priority) - Authorized/Booked Specialty Diagnoses / Procedures Referred By Contac t Referred To Contact Oncology/Hematology Procedures REFERRAL TO ONCOLOGY/HEMATOLOGY (IN NETWORK) Isma Lewis MD [address] [place] [address] [facility] [address] [place] [address] Referral ID Status Reason Start Date Expiration Date V isits Requested Visits Authorized [id number] Authorized/B ooked 08/16/2023 11/15/2023 1 1 Encounter Details Date Type Department Care Team Description 08/16/2023 Orders Only Internal Medicine - [place] [address] [facility], [address] [place] [address] Isma Lewis MD [address] [place] [address] Social History Tobacco Use Types Packs/Day Years [...] on filedocumented in this encounter Care Teams Hvac Technician Residential Relationship Specialty Start Date End Date Isma Lewis MD [address] [place] [address] PCP - General Internal Medicine 09/28/18 Velma Humphrey MD [address] [place] [address] Specialist Cardiology 10/14/22 documented as of this encounter
--- OUTSIDE RECORDS SUMMARY | 2024-11-18 11:29 | XMS_ITS | Encounter Summary ---
Author Organization [facility] Address [address] [place] [address] Care Team Providers Care Merchant Patroller Name Role Phone Isma Lewis MD Primary Care Provider [phone] Velma Humphrey MD Unavailable [phone] Encounter Details Date Type Department Care Team Description 02/05/2023 Orders Only Medical Records [address] [place] [address] Abstract, Provider Social History Tobacco Use Types [...] suspected to have Coronavirus/COVID-19? No / Unsure 01/21/2023 8:49 AM EDT documented as of this encounter Plan of Treatment Not on file documented as of this encounter Procedures Procedure Name Priority Date/Time Associated Diagnosis Comments OUTSIDE ULTRASOUND Routine 02/03/2023 documented in this encounter Results * OUTSIDE ULTRASOUND (02/03/2023) Christopher Kingsley MD RADIOLOGY documented in this encounter Visit Diagnoses Not on filedocumented in this encounter Care Teams Merchant Patroller Relationship Specialty Start Date End Date Isma Lewis MD [address] [place], [place] [id number] PCP - General Internal Medicine 09/28/18 Velma Humphrey MD [address] [place] [address] Specialist Cardiology 10/14/22 documented as of this encounter
--- OUTSIDE RECORDS SUMMARY | 2024-11-18 11:29 | XMS_ITS | Encounter Summary ---
Author Organization [facility] Address [address] [place] [address] Care Team Providers Care Medical Detailist Name Role Phone Isma Lewis MD Primary Care Provider [phone] Velma Humphrey MD Unavailable [phone] Encounter Details Date Type Department Care Team Description 01/15/2023 SCAN Medical Records [address] [place] [address] Christopher Kingsley MD Social History Tobacco Use Types Packs/Day [...] suspected to have Coronavirus/COVID-19? No / Unsure 12/26/2022 9:56 AM EDT documented as of this encounter Plan of Treatment Not on file documented as of this encounter Procedures Procedure Name Priority Date/Time Associated Diagnosis Comments OUTSIDE LAB Routine 01/15/2023 OUTSIDE LAB Routine 01/15/2023 documented in this encounter Results * OUTSIDE LAB (01/15/2023) Provider Abstract LAB * OUTSIDE LAB (01/15/2023) Provider Abstract LAB documented in this encounter Visit Diagnoses Not on filedocumented in this encounter Care Teams Medical Detailist Relationship Specialty Start Date End Date Isma Lewis MD [address] [place] [address] PCP - General Internal Medicine 09/28/18 Velma Humphrey MD [address] [place] [address] Specialist Cardiology 10/14/22 documented as of this encounter
--- OUTSIDE RECORDS SUMMARY | 2024-11-18 11:29 | XMS_ITS | Encounter Summary ---
Author Organization [facility] Address [address] [place] [address] Care Team Providers Care Flamer After Lasting Name Role Phone Isma Lewis MD Primary Care Provider [phone] Velma Humphrey MD Unavailable [phone] Encounter Details Date Type Department Care Team Description 09/01/2020 Orders Only Internal Medicine - [address], [address] [place] [address] Isma Lewis MD [address] [place] [address] Social History Tobacco Use Types Packs/Day Years Used Date Smoking Tobacco: Some Days Cigars Smokeless Tobacco: Never Sex Assigned at Date Recorded Not on file COVID-19 Exposure Response Date Recorded In the last month, have you been in contact with someone who was confirmed or suspected to have Coronavirus / COVID-19? No / Unsure 09/01/2020 8:34 AM EST documented as of this encounter Plan of Treatment Not on file documented as of this encounter Visit Diagnoses Not on filedocumented in this encounter Care Teams Flamer After Lasting Relationship Specialty Start Date End Date Isma Lewis MD [address] [place], [place] [id number] PCP - General Internal Medicine 09/28/18 Velma Humphrey MD [address] [place], [place] [phone] Specialist Cardiology 10/14/22 documented as of this encounter
--- OUTSIDE RECORDS SUMMARY | 2024-11-18 11:29 | XMS_ITS | Encounter Summary ---
Author Organization [facility] Address [address] [place] [address] Care Team Providers Care Enforcement Safety Officer Name Role Phone Isma Lewis MD Primary Care Provider [phone] Velma Humphrey MD Unavailable [phone] Encounter Details Date Type Department Care Team Description 11/27/2021 Corporate Law Specialist Report Medical Records [address] [place] [address] [facility] [address] [place] [address] Social History Tobacco Use Types Packs/Day Years [...] on filedocumented in this encounter Care Teams Enforcement Safety Officer Relationship Specialty Start Date End Date Isma Lewis MD [address] [place], [place] [phone] PCP - General Internal Medicine 09/28/18 Velma Humphrey MD [address] [place], [place] [phone] Specialist Cardiology 10/14/22 documented as of this encounter
--- OUTSIDE RECORDS SUMMARY | 2024-11-18 11:29 | XMS_ITS | Encounter Summary ---
Author Organization [facility] Address [address] [place] [address] Care Team Providers Care Composition Molder Name Role Phone Isma Lewis MD Primary Care Provider [phone] Velma Humphrey MD Unavailable [phone] Encounter Details Date Type Department Care Team Description 06/20/2022 Orders Only Internal Medicine - [address], [address] [place] [address] Isma Lewis MD [address] [place] [address] Social History Tobacco Use Types Packs/Day Years [...] on filedocumented in this encounter Care Teams Composition Molder Relationship Specialty Start Date End Date Isma Lewis MD [address] [place] [address] PCP - General Internal Medicine 09/28/18 Velma Humphrey MD [address] [place] [address] Specialist Cardiology 10/14/22 documented as of this encounter
--- OUTSIDE RECORDS SUMMARY | 2024-11-18 11:29 | XMS_ITS | Encounter Summary ---
Author Organization [facility] Address [address] [place] [address] Care Team Providers Care Paperhanger Pipe Name Role Phone Isma Lewis MD Primary Care Provider [phone] Velma Humphrey MD Unavailable [phone] Reason for Visit * Reason Comments E-prescribe Rx Request Encounter Details Date Type Department Care Team Description 05/23/2021 Refill Internal Medicine - [address], [address] [place] [address] Isma Lewis MD [address] [place] [address] E-prescribe Rx Request Social History Tobacco Use Types Packs/Day Years Used Date Smoking Tobacco: Some Days Cigars Smokeless Tobacco: Never Sex Assigned at Date Recorded Not on file documented as of this encounter Miscellaneous Notes * Telephone Encounter - Jami CORNELL - 05/23/2021 9:20 AM EDT BP Readings from Last 3 Encounters: 02/26/21 108/58 08/28/20 (!) 148/72 04/25/20 (!) 162/84 * Telephone Encounter - Kavita Shipman - 05/23/2021 9:02 AM EDT NERY 02/26/21 NOV 07/26/21 documented in this encounter Plan of Treatment Not on file documented as of this encounter Visit Diagnoses Not on filedocumented in this encounter Care Teams Paperhanger Pipe Relationship Specialty Start Date End Date Isma Lewis MD [address] [place] [address] PCP - General Internal Medicine 09/28/18 Velma Humphrey MD [address] [facility] [place] [address] Specialist Cardiology 10/14/22 documented as of this encounter
--- OUTSIDE RECORDS SUMMARY | 2024-11-18 11:29 | XMS_ITS | Encounter Summary ---
Author Organization [facility], Address [address] [place] [phone] Phone Care Team Providers Care Plant Chief Name Role Phone Isma Lewis MD Primary Care Provider [phone] Encounter Details Date Type Department Care Team (Late st Contact Info) Description 08/08/2022 Documentation Only [facility] [address] [place] [address] Isma Lewis MD [address] [place] [address] Social History Tobacco Use Types Packs/Day Years [...] Visit [facility], [address] [place] [address] Sammy Hall MD [address] [place] [address] [place] [phone] documented as of this encounter Visit Diagnoses Not on filedocumented in this encounter Care Teams Plant Chief Relationship Specialty Start Date End Date Isma Lewis MD [address] [place] [address] PCP - General Internal Medicine 07/22/22 documented as of this encounter
--- OUTSIDE RECORDS SUMMARY | 2024-11-18 11:29 | XMS_ITS | Encounter Summary ---
Author Organization [facility] Address [address] [place] [address] Care Team Providers Care Regional Operations Manager Name Role Phone Isma Lewis MD Primary Care Provider [phone] Velma Humphrey MD Unavailable [phone] Reason for Visit * Reason Onset Date Comments Faxed Refill 01/27/2019 Encounter Details Date Type Department Care Team Description 01/27/2019 Refill Adult Med - [place] [address] [place] [address] Isma Lewis MD [address] [place] [address] Faxed Refill Social History Tobacco Use Types Packs/Day Years Used Date Smoking Tobacco: Some Days Cigars Smokeless Tobacco: Never Sex Assigned at Date Recorded Not on file documented as of this encounter Miscellaneous Notes * Telephone Encounter - Karen Sahni R.N. - 01/27/2019 9:35 AM EDT NERY 12/01/18 NOV 01/29/19 90 day supply requested * Telephone Encounter - Jasbir Pierce - 01/27/2019 9:14 AM EDT Patient would like script to be: E-PRESCRIBED/FAXED TO PHARMACY WHEN WAS THE PATIENT'S LAST APPOINTMENT IN ADULT MEDICINE? 12/01 WHEN WAS THE LAST TIME THE PATIENT SAW THEIR PCP? Same as above Does patient have an upcoming appointment? Yes 01/29 (THE MEDICATION REQUESTED IS ON THE MED [...] N/A Patients current insurance carrier is: Payor: [facility] / Plan: AARP MEDICARE COMPLETE $15/$45 [facility] [id number] / Product Type: PPO [id number] documented in this encounter Plan of Treatment Not on file documented as of this encounter Visit Diagnoses Not on filedocumented in this encounter Care Teams Regional Operations Manager Relationship Specialty Start Date End Date Isma Lewis MD [address] [place] [address] PCP - General Internal Medicine 09/28/18 Velma Humphrey MD [address] [place] [address] Specialist Cardiology 10/14/22 documented as of this encounter
--- OUTSIDE RECORDS SUMMARY | 2024-11-18 11:29 | XMS_ITS | Clinical Summary ---
Author Organization 175 [facility] Address [address] [place] [address] Phone Care Team Providers Care House Director Name Role Phone Isma Lewis MD Primary Care Provider [phone] Allergies No known active allergies Medications losartan [...] ,start Bystolic 2.5 mg daily, did see ski patrol director. Still has some dyspnea, referred to pulmonary [...] Future Thyroid stimulating hormone; Future Prostate cancer ([facility]/HCC V24, [facility]/HCC V28) 09/24 Overview (10/15/2023): 06/2018 repeat MRI in 2-3months, PSA and rectal exam; [facility] BPH (benign prostatic hyperplasia) 09/24/2018 Anxiety [...] 11:45 AM EDT Office Visit Internal Medicine [facility] 175 [facility] [address] [place] [address] Isma Lewis MD Accelerated hypertension (Primary Dx); Primary hypertension; Stage 2 chronic kidney disease; Hypercholesterolemia 10/14/2024 10:20 AM EST Office Visit Gastroenterology - 299 [facility] 299 [facility] [address] [place] [phone] Mary Bermudez PA Epigastric burning sensation (Primary Dx); Nausea; Adenomatous polyp of ascending colon 10/13/2024 Telephone Internal Medicine [facility] 175 [facility] [address] [place] [address] Isma Lewis MD 10/11/2024 Telephone Internal Medicine [facility] 175 [facility] [address] [place] [address] Isma Lewis MD Joseph: Medication 09/21/2024 10:45 AM EST Office Visit Internal Medicine [facility] 175 [facility] [address] [place] [address] Isma Lewis MD Primary hypertension (Primary Dx); Stage 2 chronic kidney disease 09/20/2024 Telephone Internal Medicine - [place] 175 [facility] [address] [place] [phone] Isma Lewis MD Hypertension 09/14/2024 9:51 AM EST - 09/14/2024 11:59 PM EST Hospital Encounter [facility] Xray [address] [place] [phone] SOB (shortness of breath) Discharge Disposition: Home or Self Care 09/07/2024 10:00 AM EST Consult Pulmonolgy - [place] [address] [phone] Virgil Palomo MD SOB (shortness of breath) 08/23/2024 9:45 AM EST Office Visit Internal Medicine - [address] [phone] Isma Lewis MD Primary hypertension (Primary Dx); [...] COMMENT: 2018 Left pretibial leg Prostate cancer (CMS/HCC V24 , CMS/HCC V28) 09/24/2018 DX:Prostate cancer (HCC); CO MMENT: 06/2018 repeat MRI in 2-3months, PSA and rectal exam; [facility] Hypertension 09/24/2018 DX:Hypertension Left cervical radiculopathy [...] Description 12/08/2024 9:10 AM EDT Office Visit [facility] - [facility] [address] 300 [facility] [address] [place] [address] Po Bernal NP [address] [place], [place] [phone] 01/13/2025 9:40 AM EDT Office Visit Gastroenterology - 299 [facility] 299 [facility] [address] [place] [address] Mary Bermudez PA 299 [facility] [address] [place] [address] 02/21/2025 8:45 AM EDT Office Visit Internal Medicine - [place] [address] [phone] Isma Lewis MD [address] [address] 05/13/2025 10:00 AM EDT Office Visit [facility] Hematology Oncology [address] [place] [phone] Jhoan Lawrence MD [address] [place] [phone] 09/08/2025 10:30 AM EST Office Visit Pulmonolgy - [place] [address] [phone] Virgil Palomo MD [address] [address] Health Maintenance Due Date Last Done Comments [...] age to complete this topic Meningococcal B Vaccine Aged Out No l onger eligible based on patient's age to complete this topic RSV Immunization Patients Under 20 months Aged Out No longer eligible based on patient's age to complete this topic Varicella Vaccines Aged Out No longer eligible based on patient's age to complete this topic Procedures Procedure Name Priority Date/Time Associated Diagnosis Comments EXTERNAL CLINICAL LAB 11/04/2024 EXTERNAL CLINICAL LAB 11/04/2024 EXTERNAL COLONOSCOPY REPORT Routine 10/15/2024 9:18 AM [...] from Last 3 Months Results * External clinical lab (11/04/2024) Only the most recent of2 resultswithin the time period is included. us Provider [facility] LAB BLOOD ORDERABLES Fin al Result * External Colonoscopy Report (10/15/2024 9:18 AM EST) Anatomical Region Laterality Modality Endoscopy [facility] Provider GI~PROCEDURE ORDERABLES F inal Result * XR Chest 2 Views (09/14/2024 9:56 AM EST) Anatomical Region Laterality Modality Body Radiographic Nancy ging 09/14/2024 1:21 PM EST Impressions 09/14/2024 1:22 PM EST Impression: No active pulmonary process identified. Telerad JAVIER ([id number]) -------- FINAL REPORT -------- Dictated By: Lubna Arreola Dictated Date: 09/14/2024 13:21 ET Assigned Physician: Lubna Arreola Reviewed and Electronically Signed By: Lubna Arreola Signed Date: 09/14/2024 13:22 ET Workstation ID: [id number] Transcribed By: Self Edit Transcribed Date: 09/14/2024 [...] Impression: No active pulmonary process identified. Telerad PA ([id number]) -------- FINAL REPORT -------- Dictated By: Lubna Arreola Dictated Date: 09/14/2024 13:21 ET Assigned Physician: Lubna Arreola Reviewed and Electronically Signed By: Lubna Arreola Signed Date: 09/14/2024 13:22 ET Workstation ID: [id number] Transcribed By: Self Edit Transcribed Date: 09/14/2024 13:21 ET Virgil Palomo MD IMG XR PROCEDURES Final Result * Lipid panel with reflex to direct LDL (09/07/2024 10:42 AM EST) Cholesterol 159 0 - 200 mg/dL LAB CHEMISTRY METHOD 09/07/2024 3:06 PM [facility] Triglycerides 126 0 - 150 mg/dL LAB CHEMISTRY METHOD 09/07/2024 3:06 PM [facility] HDL 49 >=40 mg/dL LAB CHEMISTRY METHOD 09/07/2024 3:06 PM [facility] LDL Calculated 85 0 - 100 mg/dL LAB CHEMISTRY METHOD 09/07/2024 3:06 PM [facility] VLDL Cholesterol Evan 25.2 mg/dL LAB CHEMISTRY METHOD 09/07/2024 3:06 PM [facility] Non HDL Chol. (LDL+VLDL) 110 <145 mg/dL LAB CHEMISTRY METHOD 09/07/2024 3:06 PM [facility] Chol/HDL Ratio 3.2 0.0 - 4.4 LAB CHEMISTRY METHOD 09/07/2024 3:06 PM [facility] Blood Venous blood specimen / Unknown Venipuncture / Unknown 09/07/2024 10:42 AM EST 09/07/2024 10:42 AM EST us Isma Lewis MD LAB BLOOD ORDERABLES Final Resul t [facility] [address] [place] [address], [place] [phone] * (ABNORMAL) CBC auto differential (09/07/2024 10:42 AM EST) [facility] WBC 4.5(L) 4.8 - 10.8 K/mcL LAB HEMETOLOGY METHOD 09/07/2024 2:20 PM [facility] RBC 4.40(L) 4.50 - 5.50 M/mcL LAB HEMETOLOGY METHOD 09/07/2024 2:20 PM [facility] Hemoglobin 13.2(L) 13.5 - 17.5 g/dL LAB HEMETOLOGY METHOD 09/07/2024 2:20 PM [facility] Hematocrit 39.3(L) 42.0 - 54.0 % LAB HEMETOLOGY METHOD 09/07/2024 2:20 PM [facility] MCV 89.7 79.0 - 98.0 FL LAB HEMETOLOGY METHOD 09/07/2024 2:20 PM [facility] MCH 30.1 27.0 - 32.0 pcg LAB HEMETOLOGY METHOD 09/07/2024 2:20 PM [facility] MCHC 33.6 32.0 - 37.0 g/dL LAB HEMETOLOGY METHOD 09/07/2024 2:20 PM [facility] RDW 13.8 11.0 - 15.0 % LAB HEMETOLOGY METHOD 09/07/2024 2:20 PM [facility] Platelets 130 130 - 400 K/mcL LAB HEMETOLOGY METHOD 09/07/2024 2:20 PM [facility] MPV 10.6 7.0 - 11.0 FL LAB HEMETOLOGY METHOD 09/07/2024 2:20 PM [facility] NRBC 0.0 <1.0 % LAB HEMETOLOGY METHOD 09/07/2024 2:20 PM [facility] NRBC Absolute 0.00 <0.10 K/mcL LAB HEMETOLOGY METHOD 09/07/2024 2:20 PM [facility] Neutrophils Relative 76.3 % LAB HEMETOLOGY METHOD 09/07/2024 2:20 PM [facility] Lymphocytes Relative 15.0 % LAB HEMETOLOGY METHOD 09/07/2024 2:20 PM [facility] Monocytes Relative 7.4 % LAB HEMETOLOGY METHOD 09/07/2024 2:20 PM [facility] Eosinophils Relative 0.4 % LAB HEMETOLOGY METHOD 09/07/2024 2:20 PM [facility] Basophils Relative 0.7 % LAB HEMETOLOGY METHOD 09/07/2024 2:20 PM [facility] Immature Granulocytes Relative 0.2 % LAB HEMETOLOGY METHOD 09/07/2024 2:20 PM [facility] Neutrophils Absolute 3.40 1.50 - 7.00 K/mcL LAB HEMETOLOGY METHOD 09/07/2024 2:20 PM [facility] Lymphocytes Absolute 0.67(L) 1.00 - 5.00 K/mcL LAB HEMETOLOGY METHOD 09/07/2024 2:20 PM [facility] Monocytes Absolute 0.33 0.20 - 1.00 K/mcL LAB HEMETOLOGY METHOD 09/07/2024 2:20 PM [facility] Eosinophils Absolute 0.02 0.00 - 0.50 K/mcL LAB HEMETOLOGY METHOD 09/07/2024 2:20 PM EST [facility] Basophils Absolute 0.03 0.00 - 0.20 K/mcL LAB HEMETOLOGY METHOD 09/07/2024 2:20 PM EST [facility] Immature Granulocytes Absolute 0.01 0.00 - 0.03 K/mcL LAB HEMETOLOGY METHOD 09/07/2024 2:20 PM EST [facility] Blood Venous blood specimen / Unknown Venipuncture / Unknown 09/07/2024 10:42 AM EST 09/07/2024 10:42 AM EST us Isma Lewis MD LAB BLOOD ORDERABLES Final Resul t [facility] [address] [place] [address], [place] [phone] * (ABNORMAL) Thyroid stimulating hormone (09/07/2024 10:42 AM EST) TSH 5.01(H) 0.40 - 4.00 mcIU/mL LAB CHEMISTRY METHOD 09/07/2024 3:09 PM EST [facility] Blood Venous blood specimen / Unknown Venipuncture / Unknown 09/07/2024 10:42 AM EST 09/07/2024 10:42 AM EST us Isma Lewis MD LAB BLOOD ORDERABLES Final Resul t [facility] [address] [place] [address], [place] [phone] * (ABNORMAL) Comprehensive metabolic panel (09/07/2024 10:42 AM EST) Sodium 138 133 - 145 mmol/L LAB CHEMISTRY METHOD 09/07/2024 3:22 PM EST [facility] Potassium 4.4 3.5 - 5.5 mmol/L LAB CHEMISTRY METHOD 09/07/2024 3:22 PM EST [facility] Chloride 106 96 - 110 mmol/L LAB CHEMISTRY METHOD 09/07/2024 3:22 PM [facility] CO2 30 21 - 32 mmol/L LAB CHEMISTRY METHOD 09/07/2024 3:22 PM [facility] Anion Gap 2(L) 3 - 11 LAB CHEMISTRY METHOD 09/07/2024 3:22 PM [facility] Glucose 114(H) 70 - 100 mg/dL LAB CHEMISTRY METHOD 09/07/2024 3:22 PM [facility] BUN 25 5 - 25 mg/dL LAB CHEMISTRY METHOD 09/07/2024 3:22 PM [facility] Creatinine 1.41(H) 0.70 - 1.30 mg/dL LAB CHEMISTRY METHOD 09/07/2024 3:22 PM [facility] eGFR 51(L) >=60 mL/min/1. 73m2 LAB CHEMISTRY METHOD 09/07/2024 3:22 PM [facility] Comment:Calculation based on the??Chronic Kidney Disease Epidemiology Collaboration (CKD-EPI) equation refit??without adjustment for race. BUN/Creatinine Ratio 17.7 LAB CHEMISTRY METHOD 09/07/2024 3:22 PM [facility] Calcium 9.1 8.5 - 10.5 mg/dL LAB CHEMISTRY METHOD 09/07/2024 3:22 PM [facility] AST (SGOT) 22 10 - 42 unit/L LAB CHEMISTRY METHOD 09/07/2024 3:22 PM [facility] ALT (SGPT) 53 10 - 60 unit/L LAB CHEMISTRY METHOD 09/07/2024 3:22 PM [facility] Alkaline Phosphatase 55 42 - 121 unit/L LAB CHEMISTRY METHOD 09/07/2024 3:22 PM [facility] Total Protein 6.8 6.0 - 8.0 g/dL LAB CHEMISTRY METHOD 09/07/2024 3:22 PM [facility] Albumin 4.1 3.2 - 5.0 g/dL LAB CHEMISTRY METHOD 09/07/2024 3:22 PM EST [facility] Total Bilirubin 0.5 0.0 - 1.4 mg/dL LAB CHEMISTRY METHOD 09/07/2024 3:22 PM EST [facility] Blood Venous blood specimen / Unknown Venipuncture / Unknown 09/07/2024 10:42 AM EST 09/07/2024 10:42 AM EST us Isma Lewis MD LAB BLOOD ORDERABLES Final Resul t [facility] [address] [place] [address], from Last 3 Months Insurance [employer] MEDICARE Care Teams House Director Relationship Specialty Start Date End Date Isma Lewis MD 175 [facility] [address] [place] [address] PCP - General Internal Medicine 09/28/18
--- OUTSIDE RECORDS SUMMARY | 2024-11-18 11:29 | XMS_ITS | Encounter Summary ---
Author Organization [facility] Address [address] [place] [address] Care Team Providers Care Tire Recapper Name Role Phone Isma Lewis MD Primary Care Provider [phone] Velma Humphrey MD Unavailable [phone] Encounter Details Date Type Department Care Team Description 09/28/2022 Door Machine Operator Report Medical Records [address] [place] [address] Edwardo Chase PA Social History Tobacco Use Types Packs/Day Years [...] suspected to have Coronavirus/COVID-19? No / Unsure 09/24/2022 12:32 PM EST documented as of this encounter Plan of Treatment Not on file documented as of this encounter Visit Diagnoses Not on filedocumented in this encounter Care Teams Tire Recapper Relationship Specialty Start Date End Date Isma Lewis MD [address] [place], [place] [phone] PCP - General Internal Medicine 09/28/18 Velma Humphrey MD [address] [place], [place] [phone] Specialist Cardiology 10/14/22 documented as of this encounter
--- OUTSIDE RECORDS SUMMARY | 2024-11-18 11:29 | XMS_ITS | Encounter Summary ---
Author Organization [facility] Address [address] [place] [address] Care Team Providers Care Warehouse Person Name Role Phone Isma Lewis MD Primary Care Provider [phone] Velma Humphrey MD Unavailable [phone] Encounter Details Date Type Department Care Team Description 12/06/2022 Release of Information Medical Records [address] [place] [address] [facility] Social History Tobacco Use Types Packs/Day [...] on filedocumented in this encounter Care Teams Warehouse Person Relationship Specialty Start Date End Date Isma Lewis MD [address] [place] [address] PCP - General Internal Medicine 09/28/18 Velma Humphrey MD [address] [place], [place] [phone] Specialist Cardiology 10/14/22 documented as of this encounter
== END 2024-11-18 10:31 | disposition home or self-care (01) ==
LOC: HO.HKAS 09:57
PROVIDERS: PCP Internal Medicine; Visit Provider Internal Medicine Nephrology
DX: I10 Essential (primary) hypertension (principal); N18.31 Chronic kidney disease, stage 3a
CPT/HCPCS: 99214

== ENCOUNTER → 2024-11-18 09:57 | Outpatient (BNVA) | payer MEDICARE, SELFPAY | PROVIDERS: PCP Internal Medicine; Visit Provider Internal Medicine Nephrology | DX: I12.9 Hypertensive chronic kidney disease with stage 1 through stage 4 chronic kidney disease, or unspecified chronic kidney disease (principal); N18.31 Chronic kidney disease, stage 3a; F17.290 Nicotine dependence, other tobacco product, uncomplicated | CPT/HCPCS: 93786; 93788; 99212 ==

== ENCOUNTER 2025-02-15 09:46 | Outpatient (REF) | payer MEDICARE, SELFPAY ==
--- OUTSIDE RECORDS SUMMARY | 2025-02-15 10:21 | XMS_ITS | Clinical Summary ---
Author Organization [facility] Address [address] [place] [address] Care Team Providers Care Computer Technology Trainer Name Role Phone Isma Lewis MD Primary [...] 68 05/14/2024 10:07 AM EDT Temperature 36.2 C (97.2 F) 05/14/2024 10:07 AM EDT Respiratory Rate - - Oxygen Saturation 100% [...] 1-dose 75+ series) 2021 Influenza Vaccine (#1) 2025 04/25/2020 Pneumococcal Vaccine Completed 04/07/2018, 03/27/2017 Hepatitis B Vaccines Aged Out No long er eligible based on patient's age to complete this topic RSV Ped < 20 months Aged Out No longe r eligible based on patient's age to complete this topic Care Teams Computer Technology Trainer Relationship Specialty Start Date End Date Isma Lewis MD PCP - General Internal Medicine 09/25/23
--- OUTSIDE RECORDS SUMMARY | 2025-02-15 10:21 | XMS_ITS | Encounter Summary ---
Author Organization [facility], Address [address] [place] [address] Phone Care Team Providers Care Physician Liaison Name Role Phone Isma Lewis MD Primary Care Provider [phone] Encounter Details Date Type Department Care Team (Late st Contact Info) Description 07/22/2022 Documentation Only [facility], [address] [facility] [place] [address] Isma Lewis MD [address] [place] [id number] Social History Tobacco Use Types Packs/Day Years [...] on filedocumented in this encounter Care Teams Physician Liaison Relationship Specialty Start Date End Date Isma Lewis MD [address] [address] PCP - General Internal Medicine 07/22/22 documented as of this encounter
--- OUTSIDE RECORDS SUMMARY | 2025-02-15 10:21 | XMS_ITS | Encounter Summary ---
Author Organization [employer] Address [address] [place] [address] Care Team Providers Care Automobile Service Station Manager Name Role Phone Isma Lewis MD Primary Care Provider [phone] Reason for Visit * Reason Onset Date Comments Hypertension 09/20/2024 Encounter Details Date Type Department Care Team (Late st Contact Info) Description 09/20/2024 Telephone Internal Medicine - [place] [address] [place] [phone] Isma Lewis MD [address] [place] [address] [place] [address] Hypertension Social History Tobacco Use Types Packs/Day [...] for tomorrow FYI Call to pt # [phone], spoke to pt Informed pt that Dr. Lewis advised pt to notify his machine loader of elevated BP and to restart labetalol. pt reports he stopped taking Labetalol because it caused SOB quickly like just taking a shower, gasping for breath. I scheduled an appt with provider for tomorrow * Isma Lewis MD - 09/20/2024 11:43 AM EST I think he should check with his machine loader. And may go back to his old [...] Care Team (Late st Contact Info) Description 02/21/2025 8:45 AM EDT Office Visit Internal Medicine - [place] 175 [facility] 200 [place] [phone] Isma Lewis MD 175 [facility] 200 [place] [address] 03/10/2025 1:00 PM EDT Appointment [facility] Endoscopy [address] [place] [phone] Christopher Kingsley MD 229 [facility] [address] [place] [address] 05/13/2025 10:00 AM EDT Office Visit [facility] Hematology Oncology [address] [place] [phone] Jhoan Lawrence MD [address] [place] [phone] 09/08/2025 10:30 AM EST Office Visit Pulmonolgy - [place] [address] [phone] Virgil Palomo MD [address] [address] documented as of this encounter Visit Diagnoses Not on filedocumented in this encounter Additional Health Concerns Assessment Noted Time PHQ-9 Depression Total Score: 0 08/23/19 25 9:55 AM EST A fall risk assessment has been complete d for the patient 08/23/2024 9:52 AM EST documented as of this encounter Care Teams Automobile Service Station Manager Relationship Specialty Start Date End Date Isma Lewis MD [address] [address] PCP - General Internal Medicine 09/28/18 documented as of this encounter
[2025-02-15 15:31] LABS: Anion Gap 11 (12-20); Blood Urea Nitrogen 41 mg/dL (9-16); Calcium 9.1 mg/dL (8.4-10.2); Carbon Dioxide 24 mmol/L (22-29); Chloride 108 mmol/L (96-108); Estimated Glomerular Filt Rate 31; Potassium 4.8 mmol/L (3.3-5.1); Sodium 138 mmol/L (135-145)
== END 2025-02-15 09:47 | disposition home or self-care (01) ==
LOC: HO.HKASLDS 09:46
PROVIDERS: Visit Provider Internal Medicine Nephrology
DX: I12.9 Hypertensive chronic kidney disease with stage 1 through stage 4 chronic kidney disease, or unspecified chronic kidney disease (principal); N18.31 Chronic kidney disease, stage 3a
CPT/HCPCS: 36415; 80051; 82310; 82565; 84520

== ENCOUNTER 2025-02-17 10:59 | Outpatient (AMB) | payer MEDICARE, SELFPAY ==
[2025-02-17 11:11] VITALS: BP 108/60; PULSE 54; O2SAT 98; BMI 24.1
--- NOTE | 2025-02-17 11:11 | HO.NEPHOV_ITS ---
Vital Signs 02/17/25 11:11 Height 6 ft Weight 178 lb BMI 24.1 BP 108/60 Blood Pressure Location Lt brachial Position Sitting Pulse 54 Pulse Source Pulse Oximeter Pulse Oximetry (%) 98 Oxygen Delivery Method Room Air Intake Visit Reasons: 3 MO FU-[facility] Registered Nurse Practitioner Required: No Accompanied by: Self / Same As Patient Allergies No Known Allergies Allergy (Verified 02/17/25 11:13) HPI Comments Details: Pankaj was seen in follow up for CKD & hypertension. He has been having hypertension for a long time but continues to be labile inspite of medication and its compliance. He also has CKD as well as renal calculus. He denies any CAD,CVA, CHF, PAD or known MIKE. He denies any H/O hypokalemia, uncontrolled thyroid disorders, JOSE ALFREDO, palpitations. He is a smoker. He has H/O prostate cancer. He monitors his BP at home and remains labile. He had ECHO done in the past which has been Okay as per the patient and PCP note. He has orthostatic hypotension symptoms . USS showed no MIKE but a left kidney renal calculus. His serum creatinine has gone up [facility] Medical History (Updated 02/17/25 @ 11:27 by Flaco Funez MD) Left cervical radiculopathy Chronic depression Anxiety BPH (benign prostatic hyperplasia) Prostate cancer Hyperlipidemia Hypertension Elevated serum creatinine Bilateral carpal tunnel syndrome Dyspnea Orthostatic hypotension Adenomatous polyp of colon Surgical History History of cataract surgery H/O carpal tunnel repair S/P total knee arthroplasty H/O hernia repair H/O lithotripsy H/O cystoscopy Hx of cholecystectomy S/P partial colectomy History of bowel resection History of knee replacement Family History Mother Heart disease Cancer Father Cancer Hypertension Paternal Grandfather Cancer Social History Alcohol intake: former Patient Tobacco Use Status: Current everyday Tobacco user Tobacco use type: Cigar Review of Systems Const All systems reviewed & are unremarkable except as noted in HPI and below Physical Exam Vital Signs: Last Vital Signs Pulse 54 02/17/25 11:11 BP 108/60 02/17/25 11:11 Pulse Ox 98 02/17/25 11:11 Oxygen Delivery Method Room Air 02/17/25 11:11 BMI result Body Mass Index 24.1 Const General: comfortable and no acute distress Orientation/consciousness: patient oriented x3 HEENT Head: Yes normocephalic Mouth: Normal oral and palatal mucosa present Eyes EOM: EOMs intact bilaterally Neck Neck: Yes supple Resp Auscultation: clear to auscultation bilaterally Cardio Jugular venous distension: no JVD Rate: regular rate GI Palpation (GI): Soft to palpation Auscultation: normal bowel sounds General: Yes no CVA tenderness Back/Spine/Pelvis Back: no CVA tenderness Skin General skin exam: no rashes or lesions noted Neuro General: patient oriented x3 and moves all extremities Extrem General: Yes no pedal edema Results Reviewed Nephrology Results: Sodium, (135-145) 138 mmol/L 02/15/25 Potassium, (3.3-5.1) 4.8 mmol/L 02/15/25 Chloride, (96-108) 108 mmol/L 02/15/25 Carbon Dioxide, (22-29) 24 mmol/L 02/15/25 BUN, (9-16) 41 mg/dL H 02/15/25 Creatinine, (0.5-1.4) 2.09 mg/dL H 02/15/25 Calcium, (8.4-10.2) 9.1 mg/dL 02/15/25 Phosphorus, (2.7-4.5) 3.1 mg/dL 11/04/24 PTH Intact, (8.7-77.1) 102.2 pg/mL H 11/04/24 Urine Protein, (Neg-Trace) Trace mg/dL 11/04/24 Urine Creatinine 267.04 mg/dL 11/04/24 Protein/Creatinin Ratio, (<0.2) 0.07 11/04/24 Renal US 11/12/24 Assessment & Plan Assessment & Plan (1) MILIND (acute kidney injury): Code(s): N17.9 - Acute kidney failure, unspecified Category: Medical (2) CKD stage 3a, GFR 45-59 ml/min: Code(s): N18.31 - Chronic kidney disease, stage 3a Category: Medical (3) Hypertension: Code(s): I10 - Essential (primary) hypertension Category: Medical Qualifiers: Hypertension type: primary hypertension Qualified Code(s): I10 - Essential (primary) hypertension Plan Pankaj is known to have CKD 3 with hypertension. He has been having MILIND from tubular injury. He is on losartan and bystolic. I held his Chlorthalidone. (He has orthostatic symptoms and MILIND). Renal imaging including Doppler of renal arteries did not show any MIKE but had a left renal calculus.. He maintains good hydration and avoids NSAID's. His UO is good and does not have any edema. Answered all questions. . F/U labs ordered Orders: Orders Creatinine 1 Month I10 - Essential (primary) hypertension, N17.9 - Acute kidney failure, unspecified, N18.31 - Chronic kidney disease, stage 3a Electrolytes 1 Month I10 - Essential (primary) hypertension, N17.9 - Acute kidney failure, unspecified, N18.31 - Chronic kidney disease, stage 3a Blood Urea Nitrogen 1 Month I10 - Essential (primary) hypertension, N17.9 - Acute kidney failure, unspecified, N18.31 - Chronic kidney disease, stage 3a Coding Level of Care Code Est Pt Level 4 (68184) Diagnoses MILIND (acute kidney injury) N17.9 CKD stage 3a, GFR 45-59 ml/min N18.31 Primary hypertension I10 Hypertension type: primary hypertension
--- OUTSIDE RECORDS SUMMARY | 2025-02-17 11:42 | XMS_ITS | Encounter Summary ---
Author Organization [email or web address] Address [address] [place] [address] Care Team Providers Care Crane Chaser Name Role Phone Isma Lewis MD Primary Care Provider [phone] Reason for Visit * Reason Onset Date Comments Hypertension 09/20/2024 Encounter Details Date Type Department Care Team (Late st Contact Info) Description 09/20/2024 Telephone Internal Medicine - [place] [address] [place] [phone] Isma Lewis MD [address] [place] [address] Hypertension Social History Tobacco Use Types Packs/Day [...] for tomorrow FYI Call to pt # [phone], spoke to pt Informed pt that Dr. Lewis advised pt to notify his tactical air defense controller of elevated BP and to restart labetalol. pt reports he stopped taking Labetalol because it caused SOB quickly like just taking a shower, gasping for breath. I scheduled an appt with provider for tomorrow * Isma Lewis MD - 09/20/2024 11:43 AM EST I think he should check with his tactical air defense controller. And may go back to his old [...] AM EDT Office Visit Internal Medicine - [place] 175 [facility] [address] [place] [phone] Isma Lewis MD 175 [facility] 200 [place] [address] 03/10/2025 1:00 PM EDT Appointment [facility] Endoscopy [address] [place] [phone] Christopher Kingsley MD 229 [facility] [address] [place] [address] 05/13/2025 10:00 AM EDT Office Visit [facility] Hematology Oncology [address] [place] [phone] Jhoan Lawrence MD 271 [place] [phone] 09/08/2025 10:30 AM EST Office Visit Pulmonolgy - [place] [address] [phone] Virgil Palomo MD [address] [address] documented as of this encounter Visit Diagnoses Not on filedocumented in this encounter Additional Health Concerns Assessment Noted Time PHQ-9 Depression Total Score: 0 08/23/19 25 9:55 AM EST A fall risk assessment has been complete d for the patient 08/23/2024 9:52 AM EST documented as of this encounter Care Teams Crane Chaser Relationship Specialty Start Date End Date Isma Lewis MD [address] [address] PCP - General Internal Medicine 09/28/18 documented as of this encounter
--- OUTSIDE RECORDS SUMMARY | 2025-02-17 11:42 | XMS_ITS | Clinical Summary ---
Author Organization [facility], Address [address] [place] [address] Phone Care Team Providers Care Orientation And Mobility Specialist Name Role Phone Isma Lewis MD Primary Care Provider [phone] Medications losartan (COZAAR) 50 MG tablet Take 50 mg by mouth in the morning and 50 mg in the evening. Active nebivolol (BYSTOLIC) 10 MG tablet Take 10 mg by mouth 1 (one) time each day Active Encounters Date Type Department Care Team Description 12/29/2024 Telephone [facility], [address] [facility] [place] [phone] Randi Connelly MA from Last 3 Months [...] Mass Index - - Plan of Treatment Health Maintenance Due Date Last Done Comments Influenza Vaccine (#1) 2025 04/25/2020 Pneumococcal Vaccine: 50+ Years Completed 04/07/2018, 03/27/2017 Hepatitis B Vaccine Aged Out No longe r eligible based on patient's age to complete this topic Insurance [facility] Medicare Care Teams Orientation And Mobility Specialist Relationship Specialty Start Date End Date Isma Lewis MD [address] [address] PCP - General Internal Medicine 07/22/22
--- OUTSIDE RECORDS SUMMARY | 2025-02-17 11:42 | XMS_ITS | Clinical Summary ---
Author Organization [facility] Address [address] [place] [address] Care Team Providers Care Armature Inspector Name Role Phone Isma Lewis MD Primary [...] age to complete this topic Care Teams Armature Inspector Relationship Specialty Start Date End Date Isma Lewis MD PCP - General Internal Medicine 09/25/23
== END 2025-02-17 11:46 | disposition home or self-care (01) ==
LOC: HO.HKAS 11:00
PROVIDERS: PCP Internal Medicine; Visit Provider Internal Medicine Nephrology
DX: N17.9 Acute kidney failure, unspecified (principal); N18.31 Chronic kidney disease, stage 3a; I10 Essential (primary) hypertension
CPT/HCPCS: 99214

== ENCOUNTER → 2025-02-17 10:59 | Outpatient (BNVA) | payer MEDICARE, SELFPAY | PROVIDERS: PCP Internal Medicine; Visit Provider Internal Medicine Nephrology | DX: I12.9 Hypertensive chronic kidney disease with stage 1 through stage 4 chronic kidney disease, or unspecified chronic kidney disease (principal); N18.31 Chronic kidney disease, stage 3a; N17.9 Acute kidney failure, unspecified | CPT/HCPCS: 99212 ==

== ENCOUNTER 2025-03-24 08:45 | Outpatient (REF) | payer MEDICARE, SELFPAY ==
--- OUTSIDE RECORDS SUMMARY | 2025-03-24 08:58 | XMS_ITS | Encounter Summary ---
Author Organization [employer] Address [address] [place] [address] Care Team Providers Care Cryptographic Machine Operator Name Role Phone Isma Lewis MD Primary Care Provider [phone] Reason for Visit * Reason Onset Date Comments Hypertension 09/20/2024 Encounter Details Date Type Department Care Team (Late st Contact Info) Description 09/20/2024 Telephone Internal Medicine - [place] [address] [place] [phone] Isma Lewis MD [address] [place] [address] Hypertension Social History Tobacco Use Types Packs/Day [...] for tomorrow FYI Call to pt # [phone], spoke to pt Informed pt that Dr. Lewis advised pt to notify his automation and controls supervisor of elevated BP and to restart labetalol. pt reports he stopped taking Labetalol because it caused SOB quickly like just taking a shower, gasping for breath. I scheduled an appt with provider for tomorrow * Isma Lewis MD - 09/20/2024 11:43 AM EST I think he should check with his automation and controls supervisor. And may go back to his old [...] Care Team (Late st Contact Info) Description 05/13/2025 10:00 AM EDT Office Visit [facility] Hematology Oncology [address] [place] [phone] Jhoan Lawrence MD 271 [place] [phone] 09/08/2025 10:30 AM EST [facility] [address] [phone] Virgil Palomo MD [address] [address] documented as of this encounter Visit Diagnoses Not on filedocumented in this encounter Additional Health Concerns Assessment Noted Time PHQ-9 Depression Total Score: 0 08/23/19 9:55 AM EST A fall risk assessment has been complete d for the patient 08/23/2024 9:52 AM EST documented as of this encounter Care Teams Cryptographic Machine Operator Relationship Specialty Start Date End Date Isma Lewis MD 175 [place] [address] PCP - General Internal Medicine 09/28/18 documented as of this encounter
--- OUTSIDE RECORDS SUMMARY | 2025-03-24 08:58 | XMS_ITS | Encounter Summary ---
Author Organization [facility], Address [address] [place] [address] Phone Care Team Providers Care Cost Reduction Engineer Name Role Phone Isma Lewis MD Primary Care Provider [phone] Encounter Details Date Type Department Care Team (Late st Contact Info) Description 07/22/2022 Documentation Only [facility], [address] [place] [address] Isma Lewis MD [address] [place] [address] Social History Tobacco Use Types Packs/Day Years [...] on filedocumented in this encounter Care Teams Cost Reduction Engineer Relationship Specialty Start Date End Date Isma Lewis MD [address] [address] PCP - General Internal Medicine 07/22/22 documented as of this encounter
--- OUTSIDE RECORDS SUMMARY | 2025-03-24 08:58 | XMS_ITS | Clinical Summary ---
Author Organization [facility] Address [address] [place] [address] Care Team Providers Care Orthopedic Shoe Fitter Name Role Phone Isma Lewis MD Primary [...] age to complete this topic Care Teams Orthopedic Shoe Fitter Relationship Specialty Start Date End Date Isma Lewis MD PCP - General Internal Medicine 09/25/23
[2025-03-24 14:01] LABS: Anion Gap 12 (12-20); Blood Urea Nitrogen 29 mg/dL (9-16); Carbon Dioxide 24 mmol/L (22-29); Chloride 109 mmol/L (96-108); Estimated Glomerular Filt Rate 41; Potassium 4.9 mmol/L (3.3-5.1); Sodium 140 mmol/L (135-145)
== END 2025-03-24 08:46 | disposition home or self-care (01) ==
LOC: HO.HKASLDS 08:45
PROVIDERS: Visit Provider Internal Medicine Nephrology
DX: I12.9 Hypertensive chronic kidney disease with stage 1 through stage 4 chronic kidney disease, or unspecified chronic kidney disease (principal); N18.31 Chronic kidney disease, stage 3a; N17.9 Acute kidney failure, unspecified
CPT/HCPCS: 36415; 80051; 82565; 84520

== ENCOUNTER 2025-03-29 11:04 | Outpatient (AMB) | payer MEDICARE, SELFPAY ==
[2025-03-29 11:15] VITALS: BP 154/64; PULSE 54; O2SAT 96; BMI 24.4
--- NOTE | 2025-03-29 11:15 | HO.NEPHOV_ITS ---
Vital Signs 03/29/25 11:15 Height 6 ft Weight 180 lb BMI 24.4 BP 154/64 H Blood Pressure Location Lt brachial Position Sitting Pulse 54 Pulse Source Pulse Oximeter Pulse Oximetry (%) 96 Oxygen Delivery Method Room Air Intake Visit Reasons: 1mon follow-up w/labs-Conf Executive Assistant To President Required: No Accompanied by: Self / Same As Patient Allergies No Known Allergies Allergy (Verified 03/29/25 11:15) HPI Comments Details: Pankaj was seen in follow up for CKD & hypertension. He has been having hypertension for a long time but continues to be labile inspite of medication and its compliance. He also has CKD as well as renal calculus. He denies any CAD,CVA, CHF, PAD or known MIKE. He denies any H/O hypokalemia, uncontrolled thyroid disorders, JOSE ALFREDO, palpitations. He is a smoker. He has H/O prostate cancer. He monitors his BP at home and remains labile. He had ECHO done in the past which has been Okay as per the patient and PCP note. He has orthostatic hypotension symptoms . USS showed no MIKE but a left kidney renal calculus. His serum creatinine has improved [facility] Medical History (Updated 02/17/25 @ 11:27 by Flaco Funez MD) Left cervical radiculopathy Chronic depression Anxiety BPH (benign prostatic hyperplasia) Prostate cancer Hyperlipidemia Hypertension Elevated serum creatinine Bilateral carpal tunnel syndrome Dyspnea Orthostatic hypotension Adenomatous polyp of colon Surgical History History of cataract surgery H/O carpal tunnel repair S/P total knee arthroplasty H/O hernia repair H/O lithotripsy H/O cystoscopy Hx of cholecystectomy S/P partial colectomy History of bowel resection History of knee replacement Family History Mother Heart disease Cancer Father Cancer Hypertension Paternal Grandfather Cancer Social History Alcohol intake: former Patient Tobacco Use Status: Current everyday Tobacco user Tobacco use type: Cigar Review of Systems Const All systems reviewed & are unremarkable except as noted in HPI and below Physical Exam Vital Signs: Last Vital Signs Pulse 54 03/29/25 11:15 BP 154/64 H 03/29/25 11:15 Pulse Ox 96 03/29/25 11:15 Oxygen Delivery Method Room Air 03/29/25 11:15 BMI result Body Mass Index 24.4 Const General: comfortable and no acute distress Orientation/consciousness: patient oriented x3 HEENT Head: Yes normocephalic Mouth: Normal oral and palatal mucosa present Eyes EOM: EOMs intact bilaterally Neck Neck: Yes supple Resp Auscultation: clear to auscultation bilaterally Cardio Jugular venous distension: no JVD Rate: regular rate GI Palpation (GI): Soft to palpation Auscultation: normal bowel sounds General: Yes no CVA tenderness Back/Spine/Pelvis Back: no CVA tenderness Skin General skin exam: no rashes or lesions noted Neuro General: patient oriented x3 and moves all extremities Extrem General: Yes no pedal edema Results Reviewed Nephrology Results: Sodium, (135-145) 140 mmol/L 03/24/25 Potassium, (3.3-5.1) 4.9 mmol/L 03/24/25 Chloride, (96-108) 109 mmol/L H 03/24/25 Carbon Dioxide, (22-29) 24 mmol/L 03/24/25 BUN, (9-16) 29 mg/dL H 03/24/25 Creatinine, (0.5-1.4) 1.64 mg/dL H 03/24/25 Calcium, (8.4-10.2) 9.1 mg/dL 02/15/25 Phosphorus, (2.7-4.5) 3.1 mg/dL 11/04/24 PTH Intact, (8.7-77.1) 102.2 pg/mL H 11/04/24 Urine Protein, (Neg-Trace) Trace mg/dL 11/04/24 Urine Creatinine 267.04 mg/dL 11/04/24 Protein/Creatinin Ratio, (<0.2) 0.07 11/04/24 Renal US 11/12/24 Assessment & Plan Assessment & Plan (1) CKD stage 3a, GFR 45-59 ml/min: Code(s): N18.31 - Chronic kidney disease, stage 3a Category: Medical (2) MILIND (acute kidney injury): Code(s): N17.9 - Acute kidney failure, unspecified Category: Medical (3) Hypertension: Code(s): I10 - Essential (primary) hypertension Category: Medical Qualifiers: Hypertension type: primary hypertension Qualified Code(s): I10 - Essential (primary) hypertension Plan Pankaj is known to have CKD 3 with hypertension. He had MILIND from tubular injury which is better after I held his Chlorthalidone. (He had orthostatic symptoms and MILIND). He is on losartan and bystolic. Renal imaging including Doppler of renal arteries did not show any MIKE but had a left renal calculus. He maintains good hydration and avoids NSAID's. His UO is good and does not have any edema. Answered all questions. . F/U labs ordered Orders: Orders Blood Urea Nitrogen 3 Months I10 - Essential (primary) hypertension, N17.9 - Acute kidney failure, unspecified, N18.31 - Chronic kidney disease, stage 3a Creatinine 3 Months I10 - Essential (primary) hypertension, N17.9 - Acute kidney failure, unspecified, N18.31 - Chronic kidney disease, stage 3a Electrolytes 3 Months I10 - Essential (primary) hypertension, N17.9 - Acute kidney failure, unspecified, N18.31 - Chronic kidney disease, stage 3a Coding Level of Care Code Est Pt Level 4 (87604) Diagnoses CKD stage 3a, GFR 45-59 ml/min N18.31 MILIND (acute kidney injury) N17.9 Primary hypertension I10 Hypertension type: primary hypertension
--- OUTSIDE RECORDS SUMMARY | 2025-03-29 12:38 | XMS_ITS | Encounter Summary ---
Author Organization [employer] Address [address] [place] [address] Care Team Providers Care Automobile Engine Assembler Name Role Phone Isma Lewis MD Primary Care Provider [phone] Reason for Visit * Reason Onset Date Comments Hypertension 09/20/2024 Encounter Details Date Type Department Care Team (Late st Contact Info) Description 09/20/2024 Telephone Internal Medicine - [place] [address] [place] [phone] Isma Lewis MD [address] [place] [address] Hypertension Social History Tobacco Use Types Packs/Day [...] for tomorrow FYI Call to pt # [phone], spoke to pt Informed pt that Dr. Lewis advised pt to notify his sewage disposal engineer of elevated BP and to restart labetalol. pt reports he stopped taking Labetalol because it caused SOB quickly like just taking a shower, gasping for breath. I scheduled an appt with provider for tomorrow * Isma Lewis MD - 09/20/2024 11:43 AM EST I think he should check with his sewage disposal engineer. And may go back to his old [...] Description 05/13/2025 10:00 AM EDT Office Visit [facility] Hematology Oncology [address] [place] [phone] Jhoan Lawrence MD [address] [place] [phone] 09/08/2025 10:30 AM EST [facility] [address] [phone] Virgil Palomo MD [address] [address] documented as of this encounter Visit Diagnoses Not on filedocumented in this encounter Additional Health Concerns Assessment Noted Time PHQ-9 Depression Total Score: 0 08/23/19 9:55 AM EST A fall risk assessment has been complete d for the patient 08/23/2024 9:52 AM EST documented as of this encounter Care Teams Automobile Engine Assembler Relationship Specialty Start Date End Date Isma Lewis MD 175 [place] [address] PCP - General Internal Medicine 09/28/18 documented as of this encounter
--- OUTSIDE RECORDS SUMMARY | 2025-03-29 12:38 | XMS_ITS | Clinical Summary ---
Author Organization [facility], Address [address] [place] [address] Phone Care Team Providers Care Dining Services Director Name Role Phone Isma Lewis MD Primary Care Provider [phone] Medications losartan (COZAAR) 50 MG tablet Take 50 mg by mouth in the morning and 50 mg in the evening. Active nebivolol (BYSTOLIC) 10 MG tablet Take 10 mg by mouth 1 (one) time each day Active Encounters Date Type Department Care Team Description 12/29/2024 Telephone [facility], [address] [facility] [phone] Randi Connelly MA from Last 3 Months [...] patient's age to complete this topic Insurance [facility] Medicare Care Teams Dining Services Director Relationship Specialty Start Date End Date Isma Lewis MD [address] [address] PCP - General Internal Medicine 07/22/22
--- OUTSIDE RECORDS SUMMARY | 2025-03-29 12:38 | XMS_ITS | Clinical Summary ---
Author Organization [facility] Address [address] [place] [address] Care Team Providers Care Vocational Education Teacher Name Role Phone Isma Lewis MD Primary [...] age to complete this topic Care Teams Vocational Education Teacher Relationship Specialty Start Date End Date Isma Lewis MD PCP - General Internal Medicine 09/25/23
== END 2025-03-29 11:29 | disposition home or self-care (01) ==
LOC: HO.HKAS 11:05
PROVIDERS: PCP Internal Medicine; Visit Provider Internal Medicine Nephrology
DX: N18.31 Chronic kidney disease, stage 3a (principal); N17.9 Acute kidney failure, unspecified; I10 Essential (primary) hypertension
CPT/HCPCS: 99214

== ENCOUNTER → 2025-03-29 11:04 | Outpatient (BNVA) | payer MEDICARE, SELFPAY | PROVIDERS: PCP Internal Medicine; Visit Provider Internal Medicine Nephrology | DX: I12.9 Hypertensive chronic kidney disease with stage 1 through stage 4 chronic kidney disease, or unspecified chronic kidney disease (principal); N18.31 Chronic kidney disease, stage 3a; N17.9 Acute kidney failure, unspecified | CPT/HCPCS: 99212 ==

== ENCOUNTER 2025-07-04 08:50 | Outpatient (REF) | payer MEDICARE, SELFPAY ==
--- OUTSIDE RECORDS SUMMARY | 2025-07-04 09:23 | XMS_ITS | Encounter Summary ---
Author Organization [facility], Address [address] [place] [address] Phone Care Team Providers Care Boat Cleaner Name Role Phone Isma Lewis MD Primary Care Provider [phone] Encounter Details Date Type Department Care Team (Late st Contact Info) Description 07/22/2022 Documentation Only [facility], [address] [place] [address] Isma Lewis MD [address] [place] [address] Social History Tobacco Use Types Packs/Day Years [...] on filedocumented in this encounter Care Teams Boat Cleaner Relationship Specialty Start Date End Date Isma Lewis MD [address] [address] PCP - General Internal Medicine 07/22/22 documented as of this encounter
--- OUTSIDE RECORDS SUMMARY | 2025-07-04 09:23 | XMS_ITS | Encounter Summary ---
Author Organization [facility], Address [address] [place] [address] Phone Care Team Providers Care Boiler Out Name Role Phone Isma Lewis MD Primary Care Provider [phone] Encounter Details Date Type Department Care Team (Late st Contact Info) Description 08/08/2022 Documentation Only [facility], [address] [place] [address] Isma Lewis MD [address] [place] [address] Social History Tobacco Use Types Packs/Day Years [...] on filedocumented in this encounter Care Teams Boiler Out Relationship Specialty Start Date End Date Isma Lewis MD [address] [address] PCP - General Internal Medicine 07/22/22 documented as of this encounter
--- OUTSIDE RECORDS SUMMARY | 2025-07-04 09:23 | XMS_ITS | Clinical Summary ---
Author Organization [facility] Address [address] [place] [address] Care Team Providers Care Cutter Barrel Drum Name Role Phone Isma Lewis MD Primary [...] age to complete this topic Care Teams Cutter Barrel Drum Relationship Specialty Start Date End Date Isma Lewis MD PCP - General Internal Medicine 09/25/23
--- OUTSIDE RECORDS SUMMARY | 2025-07-04 09:23 | XMS_ITS | Clinical Summary ---
Author Organization [facility], Address [address] [place] [address] [place] [address] Phone Care Team Providers Care Rn Child Name Role Phone Isma Lewis MD Primary Care Provider [phone] Medications losartan (COZAAR) 50 MG tablet Take 50 mg by mouth in the morning and 50 mg in the evening. Active nebivolol (BYSTOLIC) 10 MG tablet Take 10 mg by mouth 1 (one) time each day Active Social History Tobacco Use Types Packs/Day Years [...] patient's age to complete this topic Insurance [id number] Medicare Care Teams Rn Child Relationship Specialty Start Date End Date Isma Lewis MD [address] [place] [address] PCP - General Internal Medicine 07/22/22
--- OUTSIDE RECORDS SUMMARY | 2025-07-04 09:23 | XMS_ITS | Encounter Summary ---
Author Organization [employer] Address [address] [place] [address] Care Team Providers Care Supervisor Abattoir Name Role Phone Isma Lewis MD Primary Care Provider [phone] Reason for Visit * Reason Onset Date Comments Hypertension 09/20/2024 Encounter Details Date Type Department Care Team (Late st Contact Info) Description 09/20/2024 Telephone Internal Medicine - [place] [address] [place] [phone] Isma Lewis MD [address] [place] [address] Social History Tobacco Use Types Packs/Day Years [...] RN - 09/20/2024 12:[address] Leiws-pt reports he stopped taking Labetalol because it caused SOB so bad that he was gasping for breath. I scheduled an appt with you for tomorrow FYI Call to pt # [phone], spoke to pt Informed pt that Dr. Lewis advised pt to notify his senior ios developer of elevated BP and to restart labetalol. pt reports he stopped taking Labetalol because it caused SOB quickly like just taking a shower, gasping for breath. I scheduled an appt with provider for tomorrow * Isma Lewis MD - 09/20/2024 11:43 AM EST I think he should check with his senior ios developer. And may go back to his old [...] Care Team (Late st Contact Info) Description 08/18/2025 11:00 AM EST Office Visit Internal Medicine - [address] [phone] Isma Lewis MD [address] [address] 09/08/2025 10:30 AM EST Office Visit Pulmonology - [address] [phone] Virgil Palomo MD [address] [place] [phone] 05/12/2026 10:00 AM EDT Office Visit [facility] Hematology Oncology [address] [place] [address] Jhoan Lawrence MD [address] [place] [address] documented as of this encounter Visit Diagnoses Not on filedocumented in this encounter Additional Health Concerns Assessment Noted Time PHQ-9 Depression Total Score: 0 08/23/19 9:55 AM EST A fall risk assessment has been complete d for the patient 08/23/2024 9:52 AM EST documented as of this encounter Care Teams Supervisor Abattoir Relationship Specialty Start Date End Date Isma Lewis MD [address] [address] PCP - General Internal Medicine 09/28/18 documented as of this encounter
--- OUTSIDE RECORDS SUMMARY | 2025-07-04 09:23 | XMS_ITS | Clinical Summary ---
Author Organization [facility] Address [address] [place] [address] Phone Care Team Providers Care Metallurgical Technician Name Role Phone Isma Lewis MD Primary Care Provider Allergies No known active allergies Medications OMEPRAZOLE ORAL Take 1 tablet by mouth 1 (one) time each day. Active vit B6-mag cit,oxid-potass cit (Theralith XR) 3.75-45-45-49.5 mg tablet extended release Take 4 tablets by mouth. Active chlorthalidone (HYGROTON) 25 mg tablet Take 1 tablet (25 mg total) by mouth 1 (one) time each day. Active omeprazole OTC (PriLOSEC OTC) 20 mg EC tabletIndicatio ns:Epigastric burning sensation Take 1 tablet (20 mg total) by mouth 2 (two) times a day. Do not crush, chew, or split. 180 tablet 3 5 01/14/20 26 Active polyethylene glycol (Golytely) 236-22.74-6.74 -5.86 gram solution Take 4L by mouth once for one dose. May substitue any PEG. Starting at 2PM the day before your procedure drink 1 8oz glasses at your own pace until you complete half of the gallon. Finish 2nd half of the gallon at 8PM. 4000 mL 5 Active bisacodyL (DULCOLAX) 5 mg EC tablet Take 2 tablets by mouth right before beginning bowel prep. See instructions provided by the office 2 tablet 5 Active atorvastatin (LIPITOR) 20 mg tablet Take 1 tablet (20 mg total) by mouth 1 (one) time each day. 90 tablet 1 5 Active busPIRone (BUSPAR) 15 mg tablet Take 1 tablet (15 mg total) by mouth 2 (two) times a day. 180 tablet 1 5 Active sertraline (ZOLOFT) 100 mg tablet Take 2 tablets (200 mg total) by mouth 1 (one) time each day. 180 tablet 1 5 Active nebivoloL (Bystolic) 10 mg tablet Take 1 tablet (10 mg total) by mouth 1 (one) time each day. 30 each 11 5 03/08/20 26 Active losartan (COZAAR) 100 mg tablet Take 1 tablet (100 mg total) by mouth 1 (one) time each day. 90 tablet 1 5 Active Active Problems Problem Noted Date Diagnosed Date MATTHEW (dyspnea on exertion) 12/08/2024 Assessment & Plan (12/08/2024 9:48 AM EDT): Largely improved after the patient was discontinued off the labetalol. Adenomatous polyp of colon 10/14/2024 Overview (10/14/2024): Right colectomy 2006 for TVA with HGD Assessment & Plan (01/13/2025 10:04 AM EDT): Last colonoscopy January 2023 5-year recall due Colon/EGD Hx polyps ( 5yr) 01/2020 Dyspepsia/epigastric pain Sandra Kingsley pt Colonoscopy and EGD reviewed with patient. Risks discussed including bleeding perforation and missed lesions. There is always a chance surgery or transfusion could be required. Prep discussed with patient. Risks of anesthesia reviewed. Patient advised will need a ride home, not to have liquids for at least 3 hours prior to the procedure. Other specified anemias 10/17/2023 Orthostatic hypotension 12/06/2022 Overview (10/15/2023): - Started [...] as 50 twice daily Assessment & Plan (12/08/2024 9:48 AM EDT): Well-controlled the appointment today. Continue current medication regimen. He is currently being treated by nephrology for his hypertension. Orders: ECG 12 lead Assessment & Plan (08/23/2024 12:01 PM EST): Hypertension is under control today. At times numbers are high on losartan. DC labetalol ,start Bystolic 2.5 mg daily, did see emergency care attendant. Still has some dyspnea, referred to pulmonary Orders: CBC and differential; Future Comprehensive metabolic panel; Future Lipid panel with reflex to direct LDL; Future Thyroid stimulating hormone; Future Hyperlipidemia 09/24/2018 Overview (10/15/2023): Last Assessment & Plan: Continue atorvastatin 20 mg at bedtime Assessment & Plan (12/08/2024 9:48 AM EDT): Please see most recent LDL value above. At target. Continue current medication regimen. Assessment & Plan (08/23/2024 12:01 PM EST): Hyperlipidemia stable on Lipitor. Check CBC, CMP, TSH, lipid panel Orders: CBC and differential; Future Comprehensive metabolic panel; Future Lipid panel with reflex to direct LDL; Future Thyroid stimulating hormone; Future Prostate cancer ([facility]/HCC V24, [facility]/HCC V28) 09/24 Overview (10/15/2023): 06/2018 repeat MRI in 2-3months, PSA and rectal exam; [facility] Urology BPH (benign prostatic [...] Encounters Date Type Department Care Team Description 05/13/2025 10:00 AM EDT Office Visit [facility] Hematology Oncology [address] [place] [phone] Jhoan Lawrence MD Anemia due to other cause, not classified (Primary Dx) from Last 3 Months Immunizations Immunization Administration Dates Next Due Influenza trivalent, 0.5mL [...] PROCEDURE: US BIOPSY PROSTATE NEEDLE; COMMENT: adenocarcinoma COLONOSCOPY 01/10/2020 - 02/08/2020 Hpx2, angioectasia in distal rectum, left sided tics, healthy anastamosis right colon (5yr) Dr. Kingsley ESOPHAGOGASTRODUODENOSCOPY 01/09/2023 - 02/07/2023 gastritis, surface erosion and rare activity, negative H.pylori Dr. Kingsley Medical History Medical History Date Comments History [...] MRI in 2-3months, PSA and rectal exam; [facility] Urology Hypertension 09/24/2018 DX:Hypertension Left cervical radiculopathy 09/24/2018 DX:L eft cervical radiculopathy Social History Tobacco Use Types Packs/Day Years Used Date Smoking Tobacco: Every Day Cigars Tobacco Cessation:Ready to Q uit: Not Asked; Counseling Given: Not Answered Comments:Smoking 1 cigar daily Alcohol Use Standard Drinks/Week Comments Not Currently 0 (1 standard drink = 0.6 oz pur e alcohol) Interpersonal Safety Answer Date Record ed Physical Abuse Unrecognized value 03/10/2025 Verbal Abuse Unrecognized value 03/10/2025 Sex and Gender Information Value Date Recorded Sex Assigned at Not on file Legal Sex Male 3:56 AM EST Gender Identity Not on file Sexual Orientation Not on file Obstetrics History Last Filed Vital Signs Vital Sign Reading Time Taken Comments Blood Pressure 154/66 05/13/2025 10:01 AM EDT Pulse 54 05/13/2025 10:01 AM EDT Temperature 36.5 C (97.7 F) 05/13/2025 10:01 AM EDT Respiratory Rate 16 03/10/2025 2:52 PM EDT Oxygen Saturation 99% 05/13/2025 10:01 AM EDT Inhaled Oxygen Concentration - - Weight 81.6 kg (180 lb) 05/13/2025 10:01 AM EDT Height 182.9 cm (6') 03/10/2025 1:38 PM EDT Body Mass Index 24.41 03/10/2025 1:38 PM EDT Plan of Treatment Upcoming Encounters Date Type Department Care Team (Late st Contact Info) Description 08/18/2025 11:00 AM EST Office Visit Internal Medicine - [place] [address] [phone] Isma Lewis MD 175 [facility] [address] [place] [address] 09/08/2025 10:30 AM EST Office Visit Pulmonology - [place] 175 [facility] [address] [place] [address] Virgil Palomo MD [address] [place] [address] 05/12/2026 10:00 AM EDT Office Visit [facility] Hematology Oncology [address] [place] [address] Jhoan Lawrence MD [address] [place] [address] Health Maintenance Due Date Last Done Comments DTaP,Tdap,and Td Vaccines (1 - Tdap) 1964 RSV Immunization Adult Patients (1 - 1-dose 75+ series) 2021 Hepatitis C Screening 07/20/2022 Social Influencers of Health Screening 07/20/2022 COVID-19 Vaccine (4 - 2024-2 6 season) 2025 09/02/2021, 11/26/2020, 11/04/2020 Influenza Vaccine (#1) 2025 04/25/2020 Medicare Annual Wellness Visit 08/23/2025 08/23/2024 Hypertension/CHF/CAD Annual BMP Blood Test 09/07/2025 09/07/2024 Falls Risk Assessment 03/10/2026 03/10/2025 , 08/23/2024 Colorectal Cancer Screening: Colonoscopy 03/10/2028 03/10/2025, 10/15/2024 Cholesterol Screening (Lipid Panel) 09/07/2029 09/07/2024, 08/15/2023 Depression Screening Completed 08/23/2024 Pneumococcal Vaccine: 50+ Years Completed 12/13/2024, 04/07/2018, 03/27/2017 Zoster Vaccines Completed 04/08/2025, 12/13/2024 HIB Vaccines Aged Out No longer eligi [...] 20 months Aged Out No longer eligible b ased on patient's age to complete this topic Varicella Vaccines Aged Out No longer eligible based on patient's age to complete this topic Procedures Procedure Name Priority Date/Time Associated Diagnosis Comments CBC WITH AUTO DIFFERENTIAL Routine 05/10/2025 8:46 AM EDT Other specified anemias CBC AND DIFFERENTIAL Routine 05/10/2025 8:46 AM EDT Other specified anemias COLONOSCOPY Routine 03/10/2025 2:26 PM EDT Epigastric burning sensation Nausea Adenomatous polyp of ascending colon COMPREHENSIVE METABOLIC PANEL Routine 09/07/2024 10:42 AM EST Pure hypercholesterolem ia Primary hypertension Stage 2 chronic kidney disease Anxiety LIPID PANEL WITH REFLEX TO DIRECT LDL Routine 09/07/2024 10:42 AM EST Pure hypercholesterolem ia Primary hypertension Stage 2 chronic kidney disease Anxiety from Last 3 Months or Most Recently Relevant to Health Maintenance Results * (ABNORMAL) CBC auto differential (05/10/2025 8:46 AM EDT) WBC 4.4(L) 4.8 - 10.8 K/mcL LAB HEMETOLOGY METHOD 05/10/2025 1:00 PM EDT [facility] RBC 4.20(L) 4.50 - 5.50 M/mcL LAB HEMETOLOGY METHOD 05/10/2025 1:00 PM EDT [facility] Hemoglobin 12.3(L) 13.5 - 17.5 g/dL LAB HEMETOLOGY METHOD 05/10/2025 1:00 PM EDT [facility] Hematocrit 38.4(L) 42.0 - 54.0 % LAB [facility] MCV 91.4 79.0 - 98.0 FL LAB HEMETOLOGY METHOD 05/10/2025 1:00 PM [facility] MCH 29.3 27.0 - 32.0 pcg LAB HEMETOLOGY METHOD 05/10[facility]2025 [facility] MCHC 32.0 32.0 - 37.0 g/dL LAB HEMETOLOGY METHOD 05/10/2025 1:00 PM [facility] RDW 13.1 11.0 - 15.0 % LAB HEMETOLOGY METHOD 05/10/2025 1:00 PM [facility] Platelets 127(L) 130 - 400 K/mcL LAB HEMETOLOGY METHOD 05/10/2025 1:00 PM [facility] MPV 10.9 7.0 - 11.0 FL LAB HEMETOLOGY METHOD 05/10/2025 1:00 PM [facility] NRBC 0.0 <1.0 % LAB HEMETOLOGY METHOD 05/10/2025 1:00 PM [facility] NRBC Absolute 0.00 <0.10 K/mcL LAB HEMETOLOGY METHOD 05/10/2025 1:00 PM [facility] Neutrophils Relative 79.0 % LAB HEMETOLOGY METHOD 05/10/2025 1:00 PM [facility] Lymphocytes Relative 15.2 % LAB HEMETOLOGY METHOD 05/10/2025 1:00 PM [facility] Monocytes Relative 4.3 % LAB HEMETOLOGY METHOD 05/10/2025 1:00 PM [facility] Eosinophils Relative 1.1 % LAB HEMETOLOGY METHOD 05/10/2025 1:00 PM EDT [facility] Basophils Relative 0.2 % LAB HEMETOLOGY METHOD 05/10/2025 1:00 PM EDT [facility] Immature Granulocytes Relative 0.2 % LAB HEMETOLOGY METHOD 05/10/2025 1:00 PM EDT [facility] Neutrophils Absolute 3.48 1.50 - 7.00 K/mcL LAB HEMETOLOGY METHOD 05/10/2025 1:00 PM EDT [facility] Lymphocytes Absolute 0.67(L) 1.00 - 5.00 K/mcL LAB HEMETOLOGY METHOD 05/10/2025 1:00 PM EDT [facility] Monocytes Absolute 0.19(L) 0.20 - 1.00 K/mcL LAB HEMETOLOGY METHOD 05/10/2025 1:00 PM EDT [facility] Eosinophils Absolute 0.05 0.00 - 0.50 K/mcL LAB HEMETOLOGY METHOD 05/10/2025 1:00 PM EDT [facility] Basophils Absolute 0.01 0.00 - 0.20 K/mcL LAB HEMETOLOGY METHOD 05/10/2025 1:00 PM EDT [facility] Immature Granulocytes Absolute 0.01 0.00 - 0.03 K/mcL LAB HEMETOLOGY METHOD 05/10/2025 1:00 PM EDT [facility] Blood Venous blood specimen / Unknown Venipuncture / Unknown 05/10/2025 8:46 AM EDT 05/10/2025 12:12 PM EDT Jhoan Lawrence MD LAB BLOOD ORDERABLES Final Result [facility] [address] [place] [address], * COLONOSCOPY Anesthesia - [facility] [place]; [facility] ENDOSCOPY (03/10/2025 2:26 PM EDT) Anatomical Region Laterality Modality Endoscopy 03/10/2025 1:35 PM EDT Impressions 03/10/2025 2:14 PM EDT - Diverticulosis in the sigmoid colon. - One 8 mm polyp in the sigmoid colon, removed with a hot snare. Resected and retrieved. - One 8 mm polyp at the splenic flexure, removed with a hot snare. Complete resection. Polyp tissue not retrieved. - The examination was otherwise normal on direct and retroflexion views. - Patent end-to-side ileo-colonic anastomosis, characterized by healthy appearing mucosa. - Multiple non-bleeding colonic angioectasias. Recommendation: - Await pathology results. - Repeat colonoscopy [day] for surveillance. Narrative 03/10/2025 2:14 PM EDT [facility] GI Patient Name: Pankaj Adames Procedure Date: 03/10/2025 1:35 PM Date of : 1945 Age: 79 Room: ROOM 16 Gender: Male Note Status: Finalized Attending MD: Christopher Kingsley MD, Procedure Date No Time: 03/10/2025 Procedure: Colonoscopy Indications: High risk colon cancer surveillance: Personal history of colonic polyps Providers: Christopher Kingsley MD Referring MD: Christopher Kingsley MD Medicines: Propofol per Anesthesia Complications: No immediate complications. Estimated Blood Loss: Estimated blood loss was minimal. Procedure: Pre-Anesthesia Assessment: - ASA Grade Assessment: II - A patient with mild systemic disease. After I obtained informed consent, the scope was passed under direct vision. Throughout the procedure, the patient's blood pressure, pulse, and oxygen saturations were monitored continuously.The Colonoscope was introduced through the anus and advanced to the ileocolonic anastomosis. The colonoscopy was performed without difficulty. The patient tolerated the procedure well. The quality of the bowel preparation was good. Findings: The perianal and digital rectal examinations were normal. Multiple diverticula were found in the sigmoid colon. An 8 mm polyp was found in the sigmoid colon. The polyp was semi-pedunculated. The polyp was removed with a hot snare. Resection and retrieval were complete. An 8 mm polyp was found in the splenic flexure. The polyp was sessile. The polyp was removed with a hot snare. Resection was complete, but the polyp tissue was not retrieved. The exam was otherwise without abnormality on direct and retroflexion views. There was evidence of a prior end-to-side ileo-colonic anastomosis in the ascending colon. This was patent and was characterized by healthy appearing mucosa. Multiple angioectasias without bleeding were found in the distal rectum. Procedure Code(s): --- Professional --- 11663, Colonoscopy, flexible; with removal of tumor(s), polyp(s), or other lesion(s) by snare technique Diagnosis Code(s): --- Professional --- Z86.010, Personal history of colonic polyps D12.5, Benign neoplasm of sigmoid colon D12.3, Benign neoplasm of transverse colon (hepatic flexure or splenic flexure) Z98.0, Intestinal bypass and anastomosis status K55.20, Angiodysplasia of colon without hemorrhage K57.30, Diverticulosis of large intestine without perforation or abscess without bleeding CPT copyright 2020 [employer]. All rights reserved. The codes documented in this report are preliminary and upon welding equipment sales representative review may be revised to meet current compliance requirements. Christopher Kingsley MD 03/10/2025 2:14:24 PM This report has been signed electronically.Christopher Kingsley MD Number of Addenda: 0 Note Initiated On: 03/10/2025 1:35 PM Scope In: Scope Out: Endoscopy Department at [facility] - [address] [place] [phone] Procedure Note Christopher Kingsley MD - 03/10/2025 [facility] GI Patient Name: Pankaj Adames Procedure Date: 03/10/2025 1:35 PM Date of : 1945 Age: 79 Room: ROOM 16 Gender: Male Note Status: Finalized Attending MD: Christopher Kingsley MD, Procedure Date No Time: 03/10/2025 Procedure: Colonoscopy Indications: High risk colon cancer surveillance: Personalhistory of colonic polyps Providers: Christopher Kingsley MD Referring MD: Christopher Kingsley MD Medicines: Propofol per Anesthesia Complications: No immediate complications. Estimated Blood Loss: Estimated blood loss was minimal. Procedure: Pre-Anesthesia Assessment: - ASA Grade Assessment: II - A patient with mild systemic disease. After I obtained informed consent, the scope was passed under direct vision. Throughout theprocedure, the patient's blood pressure, pulse, and oxygen saturations were monitored continuously.The Colonoscope was introduced through the anus and advanced to the ileocolonic anastomosis. The colonoscopy was performed without difficulty. The patient tolerated the procedure well. The qualityof the bowel preparation was good. Findings: The perianal and digital rectal examinations were normal. Multiple diverticula were found in the sigmoidcolon. An 8 mm polyp was found in the sigmoid colon. The polyp was semi-pedunculated. The polyp was removed with a hot snare. Resection and retrieval were complete. An 8 mm polyp was found in the splenic flexure. The polyp was sessile. The polyp was removed with a hot snare. Resection was complete, but the polyp tissue was not retrieved. The exam was otherwise without abnormality ondirect and retroflexion views. There was evidence of a prior bvs-li-iajdyzef-colonic anastomosis in the ascending colon. This was patent and was characterized by healthy appearingmucosa. Multiple angioectasias without bleeding were foundin the distal rectum. Procedure Code(s): --- Professional --- 11911, Colonoscopy, flexible; with removal of tumor(s), polyp(s), or other lesion(s) by snare technique Diagnosis Code(s): --- Professional --- Z86.010, Personal history of colonic polyps D12.5, Benign neoplasm of sigmoid colon D12.3, Benign neoplasm of transverse colon (hepatic flexure or splenic flexure) Z98.0, Intestinal bypass and anastomosis status K55.20, Angiodysplasia of colon withouthemorrhage K57.30, Diverticulosis of large intestine without perforation or abscess without bleeding CPT copyright 2020 [employer]. All rights reserved. The codes documented in this report are preliminary and upon welding equipment sales representative reviewmay be revised to meet current compliance requirements. Christopher Kingsley MD 03/10/2025 2:14:24 PM This report has been signed electronically.Christopher Kingsley MD Number of Addenda: 0 Note Initiated On: 03/10/2025 1:35 PM Scope In: Scope Out: Endoscopy Department at [facility] - [address] [place] [phone] IMPRESSION: - Diverticulosis in the sigmoid colon. - One 8 mm polyp in the sigmoid colon, removed witha hot snare. Resected and retrieved. - One 8 mm polyp at the splenic flexure, removedwith a hot snare. Complete resection. Polyp tissue not retrieved. - The examination was otherwise normal on directand retroflexion views. - Patent end-to-side ileo-colonic anastomosis, characterized by healthy appearing mucosa. - Multiple non-bleeding colonic angioectasias. Recommendation: - Await pathology results. - Repeat colonoscopy [day] for surveillance. us Christopher Kingsley MD GI~PROCEDURE ORDERABLES Fin al Result * Lipid panel with reflex to direct LDL (09/07/2024 10:42 AM EST) Cholesterol 159 0 - 200 mg/dL LAB CHEMISTRY METHOD 09/07/2024 3:06 PM [facility] Triglycerides 126 0 - 150 mg/dL LAB CHEMISTRY METHOD 09/07/2024 3:06 PM EST [facility] HDL 49 >=40 mg/dL LAB CHEMISTRY METHOD 09/07/2024 3:06 PM [facility] LDL Calculated 85 0 - 100 mg/dL LAB CHEMISTRY METHOD 09/07/2024 3:06 PM [facility] VLDL Cholesterol Evan 25.2 mg/dL LAB CHEMISTRY METHOD 09/07/2024 3:06 PM [facility] Non HDL Chol. (LDL+VLDL) 110 <145 mg/dL LAB CHEMISTRY METHOD 09/07/2024 3:06 PM [facility] Chol/HDL Ratio 3.2 0.0 - 4.4 LAB CHEMISTRY METHOD 09/07/2024 3:06 PM [facility] Blood Venous blood specimen / Unknown Venipuncture / Unknown 09/07/2024 10:42 AM EST 09/07/2024 10:42 AM EST us Isma Lewis MD LAB BLOOD ORDERABLES Final Resul t [facility] [address] [place] [address], [place] [phone] * (ABNORMAL) Comprehensive metabolic panel (09/07/2024 10:42 AM EST) Sodium 138 133 - 145 mmol/L LAB CHEMISTRY METHOD 09/07/2024 3:22 PM EST [facility] Potassium 4.4 3.5 - 5.5 mmol/L LAB CHEMISTRY METHOD 09/07/2024 3:22 PM [facility] Chloride 106 96 - 110 mmol/L LAB CHEMISTRY METHOD 09/07/2024 3:22 PM [facility] CO2 30 21 - 32 mmol/L LAB CHEMISTRY METHOD 09/07/2024 3:22 PM [facility] Anion Gap 2(L) 3 - 11 LAB CHEMISTRY METHOD 09/07/2024 3:22 PM [facility] Glucose 114(H) 70 - 100 mg/dL LAB CHEMISTRY METHOD 09/07/2024 3:22 PM [facility] BUN 25 5 - 25 mg/dL LAB CHEMISTRY METHOD 09/07/2024 3:22 PM [facility] Creatinine 1.41(H) 0.70 - 1.30 mg/dL LAB CHEMISTRY METHOD 09/07/2024 3:22 PM [facility] eGFR 51(L) >=60 mL/min/1. 73m2 LAB CHEMISTRY METHOD 09/07/2024 3:22 PM [facility] Comment:Calculation based on the Chronic Kidney Disease Epidemiology Collaboration (CKD-EPI) equation refit without adjustment for race. BUN/Creatinine Ratio 17.7 LAB CHEMISTRY METHOD 09/07/2024 3:22 PM [facility] Calcium 9.1 8.5 - 10.5 mg/dL LAB CHEMISTRY METHOD 09/07/2024 3:22 PM [facility] AST (SGOT) 22 10 - 42 unit/L LAB CHEMISTRY METHOD 09/07/2024 3:22 PM [facility] ALT (SGPT) 53 10 - 60 unit/L LAB CHEMISTRY METHOD 09/07/2024 3:22 PM [facility] Alkaline Phosphatase 55 42 - 121 unit/L LAB CHEMISTRY METHOD 09/07/2024 3:22 PM [facility] Total Protein 6.8 6.0 - 8.0 g/dL LAB CHEMISTRY METHOD 09/07/2024 3:22 PM [facility] Albumin 4.1 3.2 - 5.0 g/dL LAB CHEMISTRY METHOD 09/07/2024 3:22 PM [facility] Total Bilirubin 0.5 0.0 - 1.4 mg/dL LAB CHEMISTRY METHOD 09/07/2024 3:22 PM [facility] Blood Venous blood specimen / Unknown Venipuncture / Unknown 09/07/2024 10:42 AM EST 09/07/2024 10:42 AM EST us Isma Lewis MD LAB BLOOD ORDERABLES Final Resul t [facility] [address] [place] [address], from Last 3 Months or Most Recently Relevant to Health Maintenance Insurance [facility] MEDIC[facility] Care Teams Metallurgical Technician Relationship Specialty Start Date End Date Isma Lewis MD [address] [place] [address] PCP - General Internal Medicine 09/28/18
--- OUTSIDE RECORDS SUMMARY | 2025-07-04 09:23 | XMS_ITS | Encounter Summary ---
Author Organization [facility], Address [address] [place] [address] Phone Care Team Providers Care Coil Connector Name Role Phone Isma Lewis MD Primary Care Provider Encounter Details Date Type Department Care Team (Late st Contact Info) Description 08/08/2022 Documentation Only [facility], [address] [place] [address] Isma Lewis MD [address] [place] [phone] Social History Tobacco Use Types Packs/Day Years [...] on filedocumented in this encounter Care Teams Coil Connector Relationship Specialty Start Date End Date Isma Lewis MD [address] [address] PCP - General Internal Medicine 07/22/22 documented as of this encounter
[2025-07-04 15:48] LABS: Anion Gap 12 (12-20); Blood Urea Nitrogen 24 mg/dL (9-16); Carbon Dioxide 26 mmol/L (22-29); Chloride 108 mmol/L (96-108); Estimated Glomerular Filt Rate 43; Potassium 4.7 mmol/L (3.3-5.1); Sodium 141 mmol/L (135-145)
== END 2025-07-04 08:51 | disposition home or self-care (01) ==
LOC: HO.HKASLDS 08:50
PROVIDERS: PCP Internal Medicine; Visit Provider Internal Medicine Nephrology
DX: I12.9 Hypertensive chronic kidney disease with stage 1 through stage 4 chronic kidney disease, or unspecified chronic kidney disease (principal); N18.31 Chronic kidney disease, stage 3a; N17.9 Acute kidney failure, unspecified
CPT/HCPCS: 36415; 80051; 82565; 84520

== ENCOUNTER 2025-07-12 10:18 | Outpatient (AMB) | payer MEDICARE, SELFPAY ==
--- NOTE | 2025-07-12 10:34 | HO.NEPHOV_ITS ---
Vital Signs 07/12/25 10:36 Height 6 ft Weight 179 lb 8 oz BMI 24.3 BP 100/50 L Blood Pressure Location Lt brachial Position Sitting Pulse 69 Pulse Source Pulse Oximeter Pulse Oximetry (%) 97 Oxygen Delivery Method Room Air Intake Visit Reasons: 3mon f/u w/labs-Conf Internal Communications Intern Required: No Accompanied by: Self / Same As Patient Allergies No Known Allergies Allergy (Verified 07/12/25 10:36) HPI Comments Details: Pankaj was seen in follow up for CKD & hypertension. He has been having hypertension for a long time but continues to be labile inspite of medication and its compliance. He also has CKD as well as renal calculus. He denies any CAD,CVA, CHF, PAD or known MIKE. He denies any H/O hypokalemia, uncontrolled thyroid disorders, JOSE ALFREDO, palpitations. He is a smoker. He has H/O prostate cancer. He monitors his BP at home. He had ECHO done in the past which has been Okay as per the patient and PCP note. He has orthostatic hypotension symptoms when he takes tamsulosin . Last renal USS showed no MIKE but a left kidney renal calculus. His serum creatinine has improved [facility] Medical History (Updated 02/17/25 @ 11:27 by Flaco Funez MD) Left cervical radiculopathy Chronic depression Anxiety BPH (benign prostatic hyperplasia) Prostate cancer Hyperlipidemia Hypertension Elevated serum creatinine Bilateral carpal tunnel syndrome Dyspnea Orthostatic hypotension Adenomatous polyp of colon Surgical History History of cataract surgery H/O carpal tunnel repair S/P total knee arthroplasty H/O hernia repair H/O lithotripsy H/O cystoscopy Hx of cholecystectomy S/P partial colectomy History of bowel resection History of knee replacement Family History Mother Heart disease Cancer Father Cancer Hypertension Paternal Grandfather Cancer Social History Alcohol intake: former Patient Tobacco Use Status: Current everyday Tobacco user Tobacco use type: Cigar Review of Systems Const All systems reviewed & are unremarkable except as noted in HPI and below Physical Exam Vital Signs: Last Vital Signs Pulse 69 07/12/25 10:36 BP 100/50 L 07/12/25 10:36 Pulse Ox 97 12/02/25 10:36 Oxygen Delivery Method Room Air 07/12/25 10:36 BMI result Body Mass Index 24.3 Const General: comfortable and no acute distress Orientation/consciousness: patient oriented x3 HEENT Head: Yes normocephalic Mouth: Normal oral and palatal mucosa present Eyes EOM: EOMs intact bilaterally Neck Neck: Yes supple Resp Auscultation: clear to auscultation bilaterally Cardio Jugular venous distension: no JVD Rate: regular rate GI Palpation (GI): Soft to palpation Auscultation: normal bowel sounds General: Yes no CVA tenderness Back/Spine/Pelvis Back: no CVA tenderness Skin General skin exam: no rashes or lesions noted Neuro General: patient oriented x3 and moves all extremities Extrem General: Yes no pedal edema Results Reviewed Nephrology Results: Sodium, (135-145) 141 mmol/L 07/04/25 Potassium, (3.3-5.1) 4.7 mmol/L 07/04/25 Chloride, (96-108) 108 mmol/L 07/04/25 Carbon Dioxide, (22-29) 26 mmol/L 07/04/25 BUN, (9-16) 24 mg/dL H 07/04/25 Creatinine, (0.5-1.4) 1.58 mg/dL H 07/04/25 Calcium, (8.4-10.2) 9.1 mg/dL 02/15/25 Renal US 11/12/24 Assessment & Plan Assessment & Plan (1) CKD stage 3a, GFR 45-59 ml/min: Code(s): N18.31 - Chronic kidney disease, stage 3a Category: Medical (2) Hypertension: Code(s): I10 - Essential (primary) hypertension Category: Medical Qualifiers: Hypertension type: primary hypertension Qualified Code(s): I10 - Essential (primary) hypertension Plan Pankaj is known to have CKD 3 with hypertension. He had MILIND from tubular injury which is better after I held his Chlorthalidone. (He had orthostatic symptoms and MILIND). He is on losartan and bystolic. Renal imaging including Doppler of renal arteries did not show any MIKE but had a left renal calculus. He maintains good hydration and avoids NSAID's. His UO is good and does not have any edema. No changes made today. He is going to talk to Urology and come off tamsulosin. Answered all questions. . F/U labs ordered Orders: Orders Blood Urea Nitrogen 3 Months I10 - Essential (primary) hypertension, N18.31 - Chronic kidney disease, stage 3a Electrolytes 3 Months I10 - Essential (primary) hypertension, N18.31 - Chronic kidney disease, stage 3a Creatinine 3 Months I10 - Essential (primary) hypertension, N18.31 - Chronic kidney disease, stage 3a Coding Level of Care Code Est Pt Level 4 (46838) Diagnoses CKD stage 3a, GFR 45-59 ml/min N18.31 Primary hypertension I10 Hypertension type: primary hypertension
[2025-07-12 10:36] VITALS: BP 100/50; PULSE 69; O2SAT 97; BMI 24.3
--- OUTSIDE RECORDS SUMMARY | 2025-07-12 11:43 | XMS_ITS | Encounter Summary ---
Author Organization [facility], Address [address] [place] [address] Phone Care Team Providers Care Credit Support Counselor Name Role Phone Isma Lewis MD Primary Care Provider [phone] Encounter Details Date Type Department Care Team (Late st Contact Info) Description 08/08/2022 Documentation Only [facility], [address] [place] [address] Isma Lewis MD [address] [place] [phone] Social History Tobacco Use Types Packs/Day Years [...] on filedocumented in this encounter Care Teams Credit Support Counselor Relationship Specialty Start Date End Date Isma Lewis MD [address] [address] PCP - General Internal Medicine 07/22/22 documented as of this encounter
--- OUTSIDE RECORDS SUMMARY | 2025-07-12 11:43 | XMS_ITS | Clinical Summary ---
Author Organization [facility] Address [address] [place] [address] Care Team Providers Care Southeast Regional Sales Manager Name Role Phone Isma Lewis MD [...] age to complete this topic Care Teams Southeast Regional Sales Manager Relationship Specialty Start Date End Date Isma Lewis MD PCP - General Internal Medicine 09/25/23
--- OUTSIDE RECORDS SUMMARY | 2025-07-12 11:43 | XMS_ITS | Encounter Summary ---
Author Organization [facility] Address [address] [place] [address] Care Team Providers Care Roof Bolter Operator Name Role Phone Isma Lewis MD Primary Care Provider [phone] Reason for Visit * Reason Onset Date Comments Hypertension 09/20/2024 Encounter Details Date Type Department Care Team (Late st Contact Info) Description 09/20/2024 Telephone Internal Medicine - [place] [address] [place] [phone] Isma Lewis MD [address] [place] [address] Social History Tobacco Use Types Packs/Day Years [...] for tomorrow FYI Call to pt # [phone], spoke to pt Informed pt that Dr. Lewis advised pt to notify his information technology administrator of elevated BP and to restart labetalol. pt reports he stopped taking Labetalol because it caused SOB quickly like just taking a shower, gasping for breath. I scheduled an appt with provider for tomorrow * Isma Lewis MD - 09/20/2024 11:43 AM EST I think he should check with his information technology administrator. And may go back to his old [...] AM EST Office Visit Internal Medicine - [address] [phone] Isma Lewis MD [address] [address] 09/08/2025 10:30 AM EST Office Visit Pulmonology - [address] [phone] Virgil Palomo MD [address] [place] [phone] 05/12/2026 10:00 AM EDT Office Visit [facility] Hematology Oncology [address] [place] [address] Jhoan Lawrence MD [address] [place] [address] documented as of this encounter Visit Diagnoses Not on filedocumented in this encounter Additional Health Concerns Assessment Noted Time PHQ-9 Depression Total Score: 0 08/23/19 9:55 AM EST A fall risk assessment has been complete d for the patient 08/23/2024 9:52 AM EST documented as of this encounter Care Teams Roof Bolter Operator Relationship Specialty Start Date End Date Isma Lewis MD [address] [address] PCP - General Internal Medicine 09/28/18 documented as of this encounter
--- OUTSIDE RECORDS SUMMARY | 2025-07-12 11:43 | XMS_ITS | Encounter Summary ---
Author Organization [facility], Address [address] [place] [address] Phone Care Team Providers Care Dough Molder Name Role Phone Isma Lewis MD Primary Care Provider [phone] Encounter Details Date Type Department Care Team (Late st Contact Info) Description 07/22/2022 Documentation Only [facility], [address] [place] [address] Isma Lewis MD [address] [place] [phone] Social History Tobacco Use Types Packs/Day Years [...] on filedocumented in this encounter Care Teams Dough Molder Relationship Specialty Start Date End Date Isma Lewis MD [address] [address] PCP - General Internal Medicine 07/22/22 documented as of this encounter
--- OUTSIDE RECORDS SUMMARY | 2025-07-12 11:43 | XMS_ITS | Clinical Summary ---
Author Organization [facility] Address [address] [place] [address] Phone Care Team Providers Care Can Sealer Name Role Phone Isma Lewis MD Primary Care Provider [phone] Allergies No known active allergies Medications OMEPRAZOLE [...] ,start Bystolic 2.5 mg daily, did see etl developer. Still has some dyspnea, referred to pulmonary [...] Future Thyroid stimulating hormone; Future Prostate cancer ([facility]/HCC V24, [facility]/HCC V28) 09/24 Overview (10/15/2023): 06/2018 repeat MRI in 2-3months, PSA and rectal exam; [facility] Urology BPH (benign prostatic hyperplasia) 09/24/2018 Anxiety [...] Description 05/13/2025 10:00 AM EDT Office Visit [facility] Hematology Oncology [address] [place] [phone] Jhoan Lawrence MD Anemia due to other [...] MRI in 2-3months, PSA and rectal exam; [facility] Hypertension 09/24/2018 DX:Hypertension Left cervical radiculopathy [...] AM EST Office Visit Internal Medicine - [place] [address] [phone] Isma Lewis MD 175 [facility] [address] [place] [address] 09/08/2025 10:30 AM EST Office Visit Pulmonology - [place] 175 [facility] [address] [place] [address] Virgil Palomo MD [address] [place] [address] 05/12/2026 10:00 AM EDT Office Visit [facility] Hematology Oncology [address] [place] [address] Jhoan Lawrence MD [address] [place] [address] Health Maintenance Due Date Last [...] Date/Time Associated Diagnosis Comments EXTERNAL CLINICAL LAB 07/04/2025 CBC WITH AUTO DIFFERENTIAL Routine 05/10/2025 8:46 [...] Recently Relevant to Health Maintenance Results * External clinical lab (07/04/2025) us Provider [facility] LAB BLOOD ORDERABLES Fin al Result * (ABNORMAL) CBC auto differential (05/10/2025 8:46 AM EDT) WBC 4.4(L) 4.8 - 10.8 K/mcL LAB HEMETOLOGY METHOD 05/10/2025 1:00 PM EDT [facility] RBC 4.20(L) 4.50 - 5.50 M/mcL LAB HEMETOLOGY METHOD 05/10/2025 1:00 PM EDT [facility] Hemoglobin 12.3(L) 13.5 - 17.5 g/dL LAB HEMETOLOGY METHOD 05/10/2025 1:00 PM [facility] Hematocrit 38.4(L) 42.0 - 54.0 % LAB HEMETOLOGY METHOD 05/10/2025 1:00 PM [facility] MCV 91.4 79.0 - 98.0 FL LAB HEMETOLOGY METHOD 05/10/2025 1:00 PM [facility] MCH 29.3 27.0 - 32.0 pcg LAB HEMETOLOGY METHOD 05/10/2025 1:00 PM [facility] MCHC 32.0 32.0 - 37.0 g/dL LAB HEMETOLOGY METHOD 05/10/2025 1:00 PM [facility] RDW 13.1 11.0 - 15.0 % LAB HEMETOLOGY METHOD 05/10/2025 1:00 PM [facility] Platelets 127(L) 130 - 400 K/mcL LAB HEMETOLOGY METHOD 05/10/2025 1:00 PM [facility] MPV 10.9 7.0 - 11.0 FL LAB HEMETOLOGY METHOD 05/10/2025 1:00 PM [facility] NRBC 0.0 <1.0 % LAB HEMETOLOGY METHOD 05/10/2025 1:00 PM [facility] NRBC Absolute 0.00 <0.10 K/mcL LAB HEMETOLOGY METHOD 05/10/2025 1:00 PM [facility] Neutrophils Relative 79.0 % LAB HEMETOLOGY METHOD 05/10/2025 1:00 PM [facility] Lymphocytes Relative 15.2 % LAB HEMETOLOGY METHOD 05/10/2025 1:00 PM [facility] Monocytes Relative 4.3 % LAB HEMETOLOGY METHOD 05/10/2025 1:00 PM EDT [facility] Eosinophils Relative 1.1 % LAB HEMETOLOGY METHOD 05/10/2025 1:00 PM EDT [facility] Basophils Relative 0.2 % LAB HEMETOLOGY METHOD 05/10/2025 1:00 PM EDT [facility] Immature Granulocytes Relative 0.2 % LAB HEMETOLOGY METHOD 05/10/2025 1:00 PM EDT [facility] Neutrophils Absolute 3.48 1.50 - 7.00 K/mcL LAB HEMETOLOGY METHOD 05/10/2025 1:00 PM EDT [facility] Lymphocytes Absolute 0.67(L) 1.00 - 5.00 K/mcL LAB HEMETOLOGY METHOD 05/10/2025 1:00 PM EDT [facility] Monocytes Absolute 0.19(L) 0.20 - 1.00 K/mcL LAB HEMETOLOGY METHOD 05/10/2025 1:00 PM EDT [facility] Eosinophils Absolute 0.05 0.00 - 0.50 K/mcL LAB HEMETOLOGY METHOD 05/10/2025 1:00 PM T [facility] Basophils Absolute 0.01 0.00 - 0.20 K/mcL LAB HEMETOLOGY METHOD 05/10/2025 1:00 PM EDT [facility] Immature Granulocytes Absolute 0.01 0.00 - 0.03 K/mcL LAB HEMETOLOGY METHOD 05/10/2025 1:00 PM T [facility] Blood Venous blood specimen / Unknown Venipuncture / Unknown 05/10/2025 8:46 AM EDT 05/10/2025 12:12 PM EDT us Jhoan Lawrence MD LAB BLOOD ORDERABLES Final Result [facility] [address] [place] [address], * COLONOSCOPY Anest[facility] - [facility] ENDOSCOPY (03/10/2025 2:26 PM EDT) Anatomical Region [...] for surveillance. Narrative 03/10/2025 2:14 PM EDT [facility] Patient Name: Pankaj Adames Procedure Date: [...] distal rectum. Procedure Code(s): --- Professional --- 63079, Colonoscopy, flexible; with removal of tumor(s), polyp(s), [...] perforation or abscess without bleeding CPT copyright 2021 [employer]. All rights reserved. The codes documented in this report are preliminary and upon power plant assistant review may be revised to meet current compliance requirements. Christopher Kingsley MD 03/10/2025 2:14:24 PM This report has been signed electronically.Christopher Kingsley MD Number of Addenda: 0 Note Initiated On: 03/10/2025 1:35 PM Scope In: Scope Out: Endoscopy Department at [facility] - [address] [place] [phone] Procedure Note Christopher Kingsley MD - 03/10/2025 [facility] GI Patient Name: Pankaj Adames Procedure Date: [...] views. There was evidence of a prior eck-he-twbxubao-colonic anastomosis in the ascending colon. This was patent and was characterized by healthy appearingmucosa. Multiple angioectasias without bleeding were foundin the distal rectum. Procedure Code(s): --- Professional --- 94508, Colonoscopy, flexible; with removal of tumor(s), polyp(s), [...] or abscess without bleeding CPT copyright 2020 [employer]. All rights reserved. The codes documented in this report are preliminary and upon power plant assistant reviewmay be revised to meet current compliance requirements. Christopher Kingsley MD 03/10/2025 2:14:24 PM This report has been signed electronically.Christopher Kingsley MD Number of Addenda: 0 Note Initiated On: 03/10/2025 1:35 PM Scope In: Scope Out: Endoscopy Department at [facility] - [address] [place] [phone] IMPRESSION: - Diverticulosis in the sigmoid colon. [...] mg/dL LAB CHEMISTRY METHOD 09/07/2024 3:06 PM [facility] Triglycerides 126 0 - 150 mg/dL LAB CHEMISTRY METHOD 09/07/2024 3:06 PM [facility] HDL 49 >=40 mg/dL LAB CHEMISTRY METHOD 09/07/2024 3:06 PM [facility] LDL Calculated 85 0 - 100 mg/dL LAB CHEMISTRY METHOD 09/07/2024 3:06 PM [facility] VLDL Cholesterol Evan 25.2 mg/dL LAB CHEMISTRY METHOD 09/07/2024 3:06 PM [facility] Non HDL Chol. (LDL+VLDL) 110 <145 mg/dL LAB CHEMISTRY METHOD 09/07/2024 3:06 PM [facility] Chol/HDL Ratio 3.2 0.0 - 4.4 LAB CHEMISTRY METHOD 09/07/2024 3:06 PM [facility] Blood Venous blood specimen / Unknown Venipuncture / Unknown 09/07/2024 10:42 AM EST 09/07/2024 10:42 AM EST us Isma Lewis MD LAB BLOOD ORDERABLES Final Resul t [facility] [address] [place] [address], [place] [phone] * (ABNORMAL) Comprehensive metabolic panel (09/07/2024 10:42 AM EST) Sodium 138 133 - 145 mmol/L LAB CHEMISTRY METHOD 09/07/2024 3:22 PM [facility] Potassium 4.4 3.5 - 5.5 mmol/L LAB CHEMISTRY METHOD 09/07/2024 3:22 PM [facility] Chloride 106 96 - 110 mmol/L LAB CHEMISTRY METHOD 09/07/2024 3:22 PM [facility] CO2 30 21 - 32 mmol/L LAB CHEMISTRY METHOD 09/07/2024 3:22 PM [facility] Anion Gap 2(L) 3 - 11 LAB CHEMISTRY METHOD 09/07/2024 3:22 PM [facility] Glucose 114(H) 70 - 100 mg/dL LAB CHEMISTRY METHOD 09/07/2024 3:22 PM [facility] BUN 25 5 - 25 mg/dL LAB CHEMISTRY METHOD 09/07/2024 3:22 PM [facility] Creatinine 1.41(H) 0.70 - 1.30 mg/dL LAB CHEMISTRY METHOD 09/07/2024 3:22 PM [facility] eGFR 51(L) >=60 mL/min/1. 73m2 LAB CHEMISTRY METHOD 09/07/2024 3:22 PM [facility] Comment:Calculation based on the Chronic Kidney Disease Epidemiology Collaboration (CKD-EPI) equation refit without adjustment for race. BUN/Creatinine Ratio 17.7 LAB CHEMISTRY METHOD 09/07/2024 3:22 PM [facility] Calcium 9.1 8.5 - 10.5 mg/dL LAB CHEMISTRY METHOD 09/07/2024 3:22 PM [facility] AST (SGOT) 22 10 - 42 unit/L LAB CHEMISTRY METHOD 09/07/2024 3:22 PM [facility] ALT (SGPT) 53 10 - 60 unit/L LAB CHEMISTRY METHOD 09/07/2024 3:22 PM [facility] Alkaline Phosphatase 55 42 - 121 unit/L LAB CHEMISTRY METHOD 09/07/2024 3:22 PM [facility] Total Protein 6.8 6.0 - 8.0 g/dL LAB CHEMISTRY METHOD 09/07/2024 3:22 PM [facility] Albumin 4.1 3.2 - 5.0 g/dL LAB CHEMISTRY METHOD 09/07/2024 3:22 PM [facility] Total Bilirubin 0.5 0.0 - 1.4 mg/dL LAB CHEMISTRY METHOD 09/07/2024 3:22 PM EST [facility] Blood Venous blood specimen / Unknown Venipuncture / Unknown 09/07/2024 10:42 AM EST 09/07/2024 10:42 AM EST us Isma Lewis MD LAB BLOOD ORDERABLES Final Resul t [facility] [address] [place] [address], from Last 3 Months or Most Recently Relevant to Health Maintenance Insurance [employer] MEDICARE Care Teams Can Sealer Relationship Specialty Start Date End Date Isma Lewis MD [address] [address] PCP - General Internal Medicine 09/28/18
--- OUTSIDE RECORDS SUMMARY | 2025-07-12 11:43 | XMS_ITS | Encounter Summary ---
Author Organization [facility], Address [address] [place] [address] Phone Care Team Providers Care Credit Resolution Representative Name Role Phone Isma Lewis MD Primary Care Provider Encounter Details Date Type Department Care Team (Late st Contact Info) Description 08/08/2022 Documentation Only [facility], [address] [place] [address] Isma Lewis MD [address] [place] [phone] Social History Tobacco Use Types Packs/Day Years [...] filedocumented in this encounter Care Teams Credit Resolution Representative Relationship Specialty Start Date End Date Isma Lewis MD [address] [place] [address] [address] PCP - General Internal Medicine 07/22/22 documented as of this encounter
--- OUTSIDE RECORDS SUMMARY | 2025-07-12 11:44 | XMS_ITS | Clinical Summary ---
Author Organization [facility], Address [address] [place] [address] [place] [address] Phone Care Team Providers Care Director Of Surgery Name Role Phone Isma Lewis MD Primary Care Provider [phone] Medications losartan (COZAAR) 50 MG tablet Take [...] patient's age to complete this topic Insurance [id number] Medicare Care Teams Director Of Surgery Relationship Specialty Start Date End Date Isma Lewis MD [address] [place] [phone] PCP - General Internal Medicine 07/22/22
== END 2025-07-12 10:51 | disposition home or self-care (01) ==
LOC: HO.HKAS 10:18
PROVIDERS: PCP Internal Medicine; Visit Provider Internal Medicine Nephrology
DX: N18.31 Chronic kidney disease, stage 3a (principal); I10 Essential (primary) hypertension
CPT/HCPCS: 99214

== ENCOUNTER → 2025-07-12 10:18 | Outpatient (BNVA) | payer MEDICARE, SELFPAY | PROVIDERS: PCP Internal Medicine; Visit Provider Internal Medicine Nephrology | DX: I12.9 Hypertensive chronic kidney disease with stage 1 through stage 4 chronic kidney disease, or unspecified chronic kidney disease (principal); N18.31 Chronic kidney disease, stage 3a; F17.210 Nicotine dependence, cigarettes, uncomplicated | CPT/HCPCS: 99212 ==